=== PATIENT | male | born 1950 | race Caucasian/White ===

== ENCOUNTER 2016-09-17 08:42 | Emergency (ER) | payer MEDICARE, MEDICAID ==
--- NOTE | 2016-09-17 09:25 | EDM.PDOC ---
ED HPI GENERAL MEDICAL PROBLEM - General Chief Complaint: ENT Problem Stated Complaint: sore throat Time Seen by Provider: 09/17/16 08:45 Source of Information: Reports: Patient History Limitations: Reports: No Limitations - History of Present Illness INITIAL COMMENTS - FREE TEXT/NARRATIVE: Pt claims that he has been having sore throat for past 3 dys now. pain is in the back of the throat and hurts to swallow. even swallowing saliva hurts. no fever4 or chills. No runny nose or cough. Pt was waiting for the pain to improve. has not taken any medications. Today he has been having pain on the left side of the neck and sore throat has not improved. No nausea or vomiting. No cough, chest pain or SOB. Duration: Day(s): (3) Location: Reports: Neck, Other (sore throat) Quality: Reports: Ache Severity: Mild Improves with: Reports: None Worsens with: Reports: None Associated Symptoms: Denies: Confusion, Chest Pain, Cough, Diaphoresis, Fever/ Chills, Nausea/Vomiting, Rash, Shortness of Breath, Weakness - Related Data Allergies Allergy/AdvReac Type Severity Reaction Status Date / Time No Known Allergies Allergy Verified 12/10/15 16:57 Home Meds: Home Meds Fluticasone/Salmeterol [Advair 250-50 Diskus] 2 puff INH BID 05/03/13 [History] Furosemide [Furosemide] 20 mg PO DAILY 05/03/13 [History] Metoprolol Tartrate [Lopressor] 25 mg PO BID 05/03/13 [History] metFORMIN [metFORMIN XR] 500 mg PO BIDM 02/08/14 [History] Aspirin 325 mg PO DAILY 08/03/15 [History] Docusate Sodium [Stool Softener] 250 mg PO DAILY 08/03/15 [History] Insulin Aspart [Novolog Flexpen] 6 unit SQ TID 08/03/15 [History] Naproxen [Naprosyn] 500 mg PO Q12HR PRN 08/03/15 [History] Nitroglycerin [Nitrostat] 0.3 mg SL ASDIRECTED PRN 08/03/15 [History] Omeprazole 20 mg PO DAILY 08/03/15 [History] Rosuvastatin [Crestor] 40 mg PO BEDTIME 08/03/15 [History] levETIRAcetam [Keppra] 500 mg PO BID 08/03/15 [History] Insulin Detemir [Levemir Flextouch] 30 unit SUBCUT DAILY 12/10/15 [History] Methimazole [Methimazole] 15 mg PO DAILY 12/10/15 [History] Sertraline HCl [Sertraline HCl] 200 mg PO DAILY 09/17/16 [History] Past Medical History - Past Health History Medical/Surgical History: Denies Medical/Surgical History HEENT History: Reports: Other (See Below) Other HEENT History: [place], states occasionally has trouble swallowing Cardiovascular History: Reports: Angina, Hypertension Respiratory History: Reports: Asthma, COPD, Other (See Below) Other Respiratory History: hx of smoking and asthma Gastrointestinal History: Reports: Chronic Constipation, GERD Other Musculoskeletal History: hx of meniscal tear, plantar wart, left knee pain Neurological History: Reports: CVA, Seizure Endocrine/Metabolic History: Reports: Diabetes, Type II, Hyperthyroidism - Past Surgical History Cardiovascular Surgical History: Reports: Coronary Artery Bypass, Coronary Artery Stent Social & Family History - Family History Family Medical History: Noncontributory - Tobacco Use Smoking Status *Q: Unknown Ever Smoked Years of Tobacco use: 30 Used Tobacco, but Quit: Yes Month Tobacco Last Used: 16 years ago Second Hand Smoke Exposure: No - Alcohol Use Days Per Week of Alcohol Use: 0 - Recreational Drug Use Recreational Drug Use: No ED ROS GENERAL - Review of Systems Review Of Systems: See Below Constitutional: Denies: Fever, Chills HEENT: Reports: Throat Pain. Denies: Ear Pain, Nose Pain, Rhinitis, Sinus Problem, Throat Swelling Respiratory: Denies: Shortness of Breath, Wheezing, Cough, Sputum Cardiovascular: Denies: Chest Pain, Lightheadedness GI/Abdominal: Denies: Abdominal Pain, Nausea, Vomiting : Denies: Dysuria, Flank Pain Musculoskeletal: Reports: Neck Pain (left sided). Denies: Joint Pain, Joint Swelling ED EXAM, GENERAL - Physical Exam Exam: See Below Exam Limited By: No Limitations General Appearance: Alert, WD/WN, No Apparent Distress Eye Exam: Bilateral Eye: EOMI, PERRL Ears: Normal External Exam, Normal Canal, Hearing Grossly Normal, Normal TMs Ear Exam: Bilateral Ear: TM normal Nose: Normal Inspection, Normal Mucosa, No Blood Throat/Mouth: Normal Inspection, Normal Lips, Normal Teeth, Normal Gums, Normal Voice, No Airway Compromise, Other (mild congestion of posterior pharynx) Head: Atraumatic, Normocephalic Neck: Normal Inspection, Supple, Non-Tender (submabdibular lymphnode 2cm firm to soft and tender), Lymphadenopathy (L) Respiratory/Chest: No Respiratory Distress, Lungs Clear, Normal Breath Sounds, No Accessory Muscle Use, Chest Non-Tender Cardiovascular: Normal Peripheral Pulses, Regular Rate, Rhythm, No Edema, No Gallop, No JVD, No Murmur, No Rub Peripheral Pulses: 2+: Radial (L), Radial (R) GI/Abdominal: Normal Bowel Sounds, Soft, Non-Tender, No Organomegaly, No Distention, No Abnormal Bruit, No Mass Lymphatic: Adenopathy (left submandibular lymphnode enlarged and tender.) Course - Vital Signs Text/Narrative:: Pt has mild posterior pharyngeal congestion with left submandibular enlarged tender lymphnode. His strep test is negative. he has mild pharyngeal congestion with unilateral tender submandibular lymphadenopathy. Appear like bacterial pharyngitis. I have advised patient lysterine gargles 2-3 times daily. Warm soft diet. Tylenol 500mg 4 times daily. - Orders/Labs/Meds Orders: Active Orders 24 hr Category Date Time Status STREP SCREEN A RAPID [RM] Stat Lab 09/17/16 09:19 Ordered Departure - Departure Time of Disposition: 09:40 Disposition: Home, Self-Care 01 Condition: fair Clinical Impression: Acute bacterial pharyngitis - Discharge Information Forms: ED Department Discharge Additional Instructions: Pt has mild posterior pharyngeal congestion with left submandibular enlarged tender lymphnode. His strep test is negative. he has mild pharyngeal congestion with unilateral tender submandibular lymphadenopathy. Appear like bacterial pharyngitis. I have advised patient lysterine gargles 2-3 times daily. Warm soft diet. Tylenol 500mg 4 times daily. followup in clinic next monday if not better. - Problem List & Annotations (1) Acute bacterial pharyngitis SNOMED Code(s): 954707034 Code(s): J02.8 - ACUTE PHARYNGITIS DUE TO OTHER SPECIFIED ORGANISMS; B96.89 - OTH BACTERIAL AGENTS THE CAUSE OF DISEASES CLASSD [id number] Status: Acute Current Visit: Yes - Problem List Review Problem List Initiated/Reviewed/Updated: Yes - My Orders Last 24 Hours: My Active Orders 09/17/16 09:19 STREP SCREEN A RAPID [RM] Stat - Assessment/Plan Last 24 Hours: My Active Orders 09/17/16 09:19 STREP SCREEN A RAPID [RM] Stat Assessment:: Acute bacterial pharyngitis Plan: Pt has mild posterior pharyngeal congestion with left submandibular enlarged tender lymphnode. His strep test is negative. he has mild pharyngeal congestion with unilateral tender submandibular lymphadenopathy. Appear like bacterial pharyngitis. I have advised patient lysterine gargles 2-3 times daily. Warm soft diet. Tylenol 500mg 4 times daily.
[2016-09-17] MEDS ORDERED: Amoxicillin/Clavulanate K 875-125 MG Tab ONE (09:30)
[2016-09-17 10:02] VITALS: BP 156/74
== END 2016-09-17 09:45 | disposition home or self-care (01) ==
LOC: LB.ED 08:42
DX: J02.8 Acute pharyngitis due to other specified organisms (principal); B96.89 Other specified bacterial agents as the cause of diseases classified elsewhere; I10 Essential (primary) hypertension; J45.909 Unspecified asthma, uncomplicated; J44.9 Chronic obstructive pulmonary disease, unspecified; K59.09 Other constipation; K21.9 Gastro-esophageal reflux disease without esophagitis; E11.9 Type 2 diabetes mellitus without complications; E05.90 Thyrotoxicosis, unspecified without thyrotoxic crisis or storm; Z79.899 Other long term (current) drug therapy; Z79.84 Long term (current) use of oral hypoglycemic drugs; Z79.82 Long term (current) use of aspirin; Z79.4 Long term (current) use of insulin; Z95.5 Presence of coronary angioplasty implant and graft; Z86.73 Personal history of transient ischemic attack (TIA), and cerebral infarction without residual deficits; Z95.1 Presence of aortocoronary bypass graft
CPT/HCPCS: 87430; 99282; 99283; A9270

== ENCOUNTER 2017-04-20 13:49 | Emergency (ER) | payer MEDICARE, MEDICAID ==
[2017-04-20] MEDS ORDERED: Aspirin 81 MG Tab.Chew PO ONE (14:06)
[2017-04-20] MEDS ORDERED: Nitroglycerin 0.4 MG Tab.SL SL ONE (15:37)
[2017-04-20 15:43] VITALS: BP 145/97
--- NOTE | 2017-04-20 16:23 | EDM.PDOC ---
ED HPI GENERAL MEDICAL PROBLEM - General Chief Complaint: Chest Pain Stated Complaint: POSS [place] Time Seen by Provider: 04/20/17 14:40 Source of Information: Reports: Patient History Limitations: Reports: No Limitations - History of Present Illness INITIAL COMMENTS - FREE TEXT/NARRATIVE: This is a 67yo M here for chest pressure that radiates to the left neck and arm wit 10/10 pain. He states this pain is the same pain he had with his prior heart attack. Patient states he has increased shortness of breath on exertion today. He feels short of breath at rest as well in the ER. Patient denies any recent sickness, stress or other factors in his health. He states he had been doing well until today. Patient has a history of CABG 3 years ago and multiple stents placed last November. Onset: Today Duration: Hour(s):, Constant Location: Reports: Chest Quality: Reports: Ache Severity: Moderate Improves with: Reports: None Worsens with: Reports: None Associated Symptoms: Reports: Chest Pain, Shortness of Breath - Related Data Allergies Allergy/AdvReac Type Severity Reaction Status Date / Time No Known Allergies Allergy Verified 12/10/15 16:57 Home Meds: Home Meds Fluticasone/Salmeterol [Advair 250-50 Diskus] 2 puff INH BID 05/03/13 [History] Furosemide [Furosemide] 40 mg PO BID 05/03/13 [History] Metoprolol Tartrate [Lopressor] 25 mg PO BID 05/03/13 [History] metFORMIN [metFORMIN XR] 500 mg PO BIDM 02/08/14 [History] Aspirin 81 mg PO DAILY 08/03/15 [History] Docusate Sodium [Stool Softener] 250 mg PO DAILY 08/03/15 [History] Insulin Aspart [Novolog Flexpen] 6 unit SQ TID 08/03/15 [History] Naproxen [Naprosyn] 500 mg PO Q12HR PRN 08/03/15 [History] Nitroglycerin [Nitrostat] 0.3 mg SL ASDIRECTED PRN 08/03/15 [History] Omeprazole 20 mg PO DAILY 08/03/15 [History] Rosuvastatin [Crestor] 40 mg PO BEDTIME 08/03/15 [History] levETIRAcetam [Keppra] 500 mg PO BID 08/03/15 [History] Insulin Detemir [Levemir Flextouch] 35 unit SUBCUT DAILY 12/10/15 [History] Methimazole [Methimazole] 15 mg PO DAILY 12/10/15 [History] Sertraline HCl [Sertraline HCl] 100 mg PO BID 09/17/16 [History] Acetaminophen [Pain Reliever] 500 mg PO QID 04/20/17 [History] Clopidogrel [Plavix] 75 mg PO DAILY 04/20/17 [History] Insulin Aspart [NovoLOG] 6 units SQ TIDAC 04/20/17 [History] Isosorbide Mononitrate [Imdur] 30 mg PO DAILY 04/20/17 [History] Past Medical History - Past Health History Medical/Surgical History: Denies Medical/Surgical History HEENT History: Reports: Other (See Below) Other HEENT History: [place], states occasionally has trouble swallowing Cardiovascular History: Reports: Angina, Hypertension, [place], Stents Respiratory History: Reports: Asthma, Other (See Below) Other Respiratory History: hx of smoking and asthma Quit smoking 20 years ago Gastrointestinal History: Reports: Chronic Constipation, GERD Other Gastrointestinal History: Last BM 04/20/2016 Other Musculoskeletal History: hx of meniscal tear, left knee pain, Hx bone too long in foot and had surgery summer. Between great toe and next on left foot Neurological History: Reports: CVA, Seizure Psychiatric History: Reports: Depression Endocrine/Metabolic History: Reports: Diabetes, Type II, Hyperthyroidism Dermatologic History: Reports: Other (See Below) Other Dermatologic History: Lower legs with dark pigmented color - Infectious Disease History Infectious Disease History: Reports: Measles - Past Surgical History Head Surgeries/Procedures: Reports: None Cardiovascular Surgical History: Reports: Coronary Artery Bypass, Coronary Artery Stent Respiratory Surgical History: Reports: None Social & Family History - Family History Family Medical History: Noncontributory - Tobacco Use Smoking Status *Q: Former Smoker Years of Tobacco use: 30 Used Tobacco, but Quit: Yes Month Tobacco Last Used: may 16 Second Hand Smoke Exposure: Yes - Caffeine Use Caffeine Use: Reports: None - Alcohol Use Days Per Week of Alcohol Use: 0 - Recreational Drug Use Recreational Drug Use: No ED ROS GENERAL - Review of Systems Review Of Systems: ROS reveals no pertinent complaints other than HPI. ED EXAM, GENERAL - Physical Exam Exam: See Below Exam Limited By: No Limitations General Appearance: Alert, WD/WN, Moderate Distress Eye Exam: Bilateral Eye: EOMI, PERRL Ears: Normal External Exam Nose: Normal Inspection Throat/Mouth: Normal Inspection Head: Atraumatic, Normocephalic Neck: Normal Inspection Respiratory/Chest: No Respiratory Distress, Lungs Clear, Normal Breath Sounds, No Accessory Muscle Use Cardiovascular: Normal Peripheral Pulses, Regular Rate, Rhythm Peripheral Pulses: 2+: Carotid (L), Carotid (R), Dorsalis Pedis (L), Dorsalis Pedis (R) GI/Abdominal: Normal Bowel Sounds, Soft, Non-Tender Back Exam: Normal Inspection Extremities: Normal Inspection Neurological: Alert, Oriented, CN II-XII Intact Psychiatric: Normal Affect, Normal Mood Skin Exam: Diaphoretic Course - Vital Signs Last Recorded V/S: Last Vital Signs Temp 37.2 C 04/20/17 14:26 Pulse 66 04/20/17 14:26 Resp 12 04/20/17 14:22 BP 145/97 H 04/20/17 15:43 Pulse Ox 95 04/20/17 14:26 - Orders/Labs/Meds Orders: Active Orders 24 hr Category Date Time Status EKG Documentation Completion [RC] ASDIRECTED Care 04/20/17 14:08 Active Chest 1V Frontal [CR] Stat Exams 04/20/17 14:05 Taken Labs: Laboratory Tests 04/20/17 04/20/17 Range/Units 14:05 14:05 WBC 8.2 (4.0-11.0) K/uL RBC 5.36 (4.50-6.50) M/uL Hgb 13.7 (13.0-18.0) g/dL Hct 41.5 (40.0-54.0) % MCV 77 (76-96) fL MCH 25.6 L (27.0-32.0) pg MCHC 33.0 (31.0-35.0) g/dL RDW 16.7 H (11.0-16.0) % Plt Count 105 L D (150-400) K/uL MPV 9.0 (6.0-10.0) fL Neut % (Auto) 72.8 H (45.0-70.0) % Lymph % (Auto) 17.2 L (20.0-40.0) % [place] % (Auto) 8.5 (3.0-10.0) % Eos % (Auto) 1.1 (1.0-5.0) % Baso % (Auto) 0.4 (0.0-0.5) % Neut # (Auto) 5.95 (2.00-7.50) K/uL Lymph # (Auto) 1.40 L (1.50-4.00) K/uL [place] # (Auto) 0.69 (0.20-0.80) K/uL Eos # (Auto) 0.09 (0.04-0.40) K/uL Baso # (Auto) 0.03 (0.02-0.10) K/uL Sodium 140 (136-145) mmol/L Potassium 4.0 (3.5-5.1) mmol/L Chloride 100 (98-107) mmol/L Carbon Dioxide 31.1 (21.0-32.0) mmol/L Anion Gap 12.9 (5.0-15.0) mmol/L BUN 23 D (8-26) mg/dL Creatinine 1.24 D (0.70-1.30) mg/dL Est Cr Clr Drug Dosing TNP Estimated GFR (MDRD) 59 L (>60) MLS/MIN BUN/Creatinine Ratio 18.5 (6-25) Glucose 261 H D (74-100) mg/dL Calcium 9.6 (8.5-10.1) mg/dL Total Bilirubin 0.3 (0.0-1.0) mg/dL AST 17 (15-37) U/L ALT 23 (12-78) U/L Alkaline Phosphatase 113 (46-116) U/L Troponin I 0.242 H* D (0.000-0.060) ng/mL Total Protein 7.8 (6.4-8.2) g/dL Albumin 4.0 (3.4-5.0) g/dL Globulin 3.8 (2.2-4.2) g/dL Albumin/Globulin Ratio 1.1 (0.8-2.0) Meds: Medications Discontinued Medications Generic Name Dose Route Start Last Admin Trade Name Freq PRN Reason Stop Dose Admin Aspirin 324 mg 04/20/17 14:06 04/20/17 14:18 Aspirin PO 04/20/17 14:07 324 mg ONETIME ONE Administration Nitroglycerin 0.4 mg 04/20/17 15:37 04/20/17 15:43 Nitrostat SL 04/20/17 15:38 0.4 mg ONETIME ONE Administration Departure - Departure Time of Disposition: 16:00 Disposition: DC/Tfer to Acute Hospital 02 Reason for Transfer *Q: Primary PCI Indicated Condition: Undetermined Clinical Impression: Acute myocardial infarction Qualifiers: Myocardial infarction ST status: non-ST elevation myocardial infarction Qualified Code(s): I21.4 - Non-ST elevation (NSTEMI) myocardial infarction Referrals: PCP,None [Primary Care Provider] - - Problem List & Annotations (1) Non-STEMI (non-ST elevated myocardial infarction) SNOMED Code(s): 047553030 Code(s): I21.4 - NON-ST ELEVATION (NSTEMI) MYOCARDIAL INFARCTION Status: Acute Priority: High Current Visit: Yes Onset Date: 09/22/15 (2) Acute coronary syndrome SNOMED Code(s): 121335684 Code(s): I24.9 - ACUTE ISCHEMIC HEART DISEASE, UNSPECIFIED Status: Acute Priority: High Current Visit: Yes Onset Date: 09/22/15 - Problem List Review Problem List Initiated/Reviewed/Updated: Yes - My Orders Last 24 Hours: My Active Orders 04/20/17 14:05 Chest 1V Frontal [CR] Stat 04/20/17 14:08 EKG Documentation Completion [RC] ASDIRECTED - Assessment/Plan Last 24 Hours: My Active Orders 04/20/17 14:05 Chest 1V Frontal [CR] Stat 04/20/17 14:08 EKG Documentation Completion [RC] ASDIRECTED Plan: Patient transferred to [place] for further care and Cardiology workup as needed. Dr. Hunter accepting. Patient and counseled and agree with plan of care.
--- NOTE | 2017-04-22 13:09 | CR ---
DATE OF SERVICE: 04/20/17 CLINICAL DATA: chest pain AP PORTABLE CHEST: Comparison is made to a prior exam dated 12/01/15. The patient is status post median sternotomy. The heart is enlarged, unchanged. There are minimal atelectatic changes in both lung bases. The lungs are otherwise clear. No pneumothorax. No pleural effusions. [id number] MTDD
== END 2017-04-20 16:00 ==
LOC: LB.ED 13:49
DX: I21.4 Non-ST elevation (NSTEMI) myocardial infarction (principal); I10 Essential (primary) hypertension; J45.909 Unspecified asthma, uncomplicated; F32.9 Major depressive disorder, single episode, unspecified; E11.9 Type 2 diabetes mellitus without complications; E05.90 Thyrotoxicosis, unspecified without thyrotoxic crisis or storm; Z87.891 Personal history of nicotine dependence; Z95.1 Presence of aortocoronary bypass graft; Z95.5 Presence of coronary angioplasty implant and graft; Z79.4 Long term (current) use of insulin; Z79.82 Long term (current) use of aspirin; Z79.02 Long term (current) use of antithrombotics/antiplatelets; Z79.899 Other long term (current) drug therapy
CPT/HCPCS: 36415; 71045; 80053; 84484; 85025; 93005; 99285; 99285-25; A9270-GY

== ENCOUNTER 2017-10-29 15:24 | Emergency (ER) | payer MEDICARE, MEDICAID ==
[2017-10-29] MEDS: Ibuprofen 800 MG Tab PO ONE (16:55)
[2017-10-29] MEDS ORDERED: predniSONE 10 MG Tab ONE (17:00)
[2017-10-29] MEDS ORDERED: Cephalexin 500 MG Cap ONE (17:00)
--- NOTE | 2017-10-29 18:19 | EDM.PDOC ---
ED HPI GENERAL MEDICAL PROBLEM - General Chief Complaint: General Stated Complaint: Swelling of Both Legs Time Seen by Provider: 10/29/17 15:30 Source of Information: Reports: Patient History Limitations: Reports: No Limitations - History of Present Illness INITIAL COMMENTS - FREE TEXT/NARRATIVE: Patient is a 67 year old man who has had a sore knee and sore ankle on the left leg for the last month. In the last few weeks the left ankle and lower leg is more sore and he believes that there may be some redness in the skin. He has a lot of pain walking on the left leg the last few days and so he came in to be evaluated. No trauma to the left leg but he is scheduled for an MRI of the left knee tomorrow with follow up afterwards with his PCP and PT. He has no fever or chills and he never has had gout before. Onset: Gradual Onset Date: 09/29/17 Onset Time: 07:00 Duration: Week(s): (4), Chronic, Getting Worse Location: Reports: Lower Extremity, Left Quality: Reports: Ache, Same as Previous Episode, Other (More swelling in the left leg and ankle today.) Severity: Moderate Improves with: Reports: Immobilization Worsens with: Reports: Movement Context: Reports: Other (Worsening left knee and ankle pain for the last 4 weeks.) Associated Symptoms: Reports: No Other Symptoms Treatments INFANT CAREGIVER: Reports: Acetaminophen, NSAIDS - Related Data Allergies Allergy/AdvReac Type Severity Reaction Status Date / Time No Known Allergies Allergy Verified 12/10/15 16:57 Home Meds: Home Meds Fluticasone/Salmeterol [Advair 250-50 Diskus] 2 puff INH BID 05/03/13 [History] Furosemide 40 mg PO BID 05/03/13 [History] Metoprolol Tartrate [Lopressor] 25 mg PO BID 05/03/13 [History] metFORMIN [metFORMIN XR] 500 mg PO BIDM 02/08/14 [History] Aspirin 81 mg PO DAILY 08/03/15 [History] Docusate Sodium [Stool Softener] 250 mg PO DAILY 08/03/15 [History] Insulin Aspart [Novolog Flexpen] 6 unit SQ TID 08/03/15 [History] Naproxen [Naprosyn] 500 mg PO Q12HR PRN 08/03/15 [History] Nitroglycerin [Nitrostat] 0.3 mg SL ASDIRECTED PRN 08/03/15 [History] Omeprazole 20 mg PO DAILY 08/03/15 [History] Rosuvastatin [Crestor] 40 mg PO BEDTIME 08/03/15 [History] levETIRAcetam [Keppra] 500 mg PO BID 08/03/15 [History] Insulin Detemir [Levemir Flextouch] 35 unit SUBCUT DAILY 12/10/15 [History] Methimazole 15 mg PO DAILY 12/10/15 [History] Sertraline HCl 100 mg PO BID 09/17/16 [History] Acetaminophen [Pain Reliever] 500 mg PO QID 04/20/17 [History] Clopidogrel [Plavix] 75 mg PO DAILY 04/20/17 [History] Insulin Aspart [NovoLOG] 6 units SQ TIDAC 04/20/17 [History] Isosorbide Mononitrate [Imdur] 30 mg PO DAILY 04/20/17 [History] Past Medical History - Past Health History Medical/Surgical History: Denies Medical/Surgical History HEENT History: Reports: Other (See Below) Other HEENT History: [place], states occasionally has trouble swallowing Cardiovascular History: Reports: Angina, Hypertension, [place], Stents Respiratory History: Reports: Asthma, Other (See Below) Other Respiratory History: hx of smoking and asthma Quit smoking 20 years ago Gastrointestinal History: Reports: Chronic Constipation, GERD Other Gastrointestinal History: Last BM 04/20/2016 Other Musculoskeletal History: hx of meniscal tear, left knee pain, Hx bone too long in foot and had surgery summer. Between great toe and next on left foot Neurological History: Reports: CVA, Seizure Psychiatric History: Reports: Depression Endocrine/Metabolic History: Reports: Diabetes, Type II, Hyperthyroidism Dermatologic History: Reports: Other (See Below) Other Dermatologic History: Lower legs with dark pigmented color - Infectious Disease History Infectious Disease History: Reports: Measles - Past Surgical History Head Surgeries/Procedures: Reports: None Cardiovascular Surgical History: Reports: Coronary Artery Bypass, Coronary Artery Stent Respiratory Surgical History: Reports: None Social & Family History - Family History Family Medical History: Noncontributory - Caffeine Use Caffeine Use: Reports: None ED ROS GENERAL - Review of Systems Review Of Systems: See Below Constitutional: Reports: No Symptoms HEENT: Reports: No Symptoms Respiratory: Reports: No Symptoms Cardiovascular: Reports: No Symptoms Endocrine: Reports: No Symptoms GI/Abdominal: Reports: No Symptoms : Reports: No Symptoms Musculoskeletal: Reports: Leg Pain (Left), Joint Pain (Left knee and left ankle. ) Skin: Reports: Erythema (Left lower leg.) Neurological: Reports: No Symptoms Psychiatric: Reports: No Symptoms Hematologic/Lymphatic: Reports: No Symptoms ED EXAM, GENERAL - Physical Exam Exam: See Below Exam Limited By: No Limitations General Appearance: Alert, WD/WN, No Apparent Distress Eye Exam: Bilateral Eye: EOMI, Normal Fundi, Normal Inspection, PERRL Ears: Normal External Exam, Normal Canal, Hearing Grossly Normal, Normal TMs Ear Exam: Bilateral Ear: Auricle Normal, Canal Normal, TM normal Nose: Normal Inspection, Normal Mucosa, No Blood Throat/Mouth: Normal Inspection, Normal Lips, Normal Teeth, Normal Gums, Normal Oropharynx, Normal Voice, No Airway Compromise Head: Atraumatic, Normocephalic Neck: Normal Inspection, Supple, Non-Tender, Full Range of Motion Respiratory/Chest: No Respiratory Distress, Lungs Clear, Normal Breath Sounds, No Accessory Muscle Use, Chest Non-Tender Cardiovascular: Normal Peripheral Pulses, Regular Rate, Rhythm, No Edema, No Gallop, No JVD, No Murmur, No Rub Peripheral Pulses: 3+: Posterior Tibial (L), Posterior Tibial (R), Dorsalis Pedis (L), Dorsalis Pedis (R) GI/Abdominal: Normal Bowel Sounds, Soft, Non-Tender, No Organomegaly, No Distention, No Abnormal Bruit, No Mass (Male) Exam: No Hernia, Normal Inspection, Normal Prostate, Circumcised Extremities: Leg Pain (Left leg in ankle and knee.), Limited Range of Motion ( Left knee and left ankle due to pain.), Redness (Left lower leg by ankle.) Neurological: Alert, Oriented, CN II-XII Intact, Normal Cognition, Normal Gait, Normal Reflexes, No Motor/Sensory Deficits Psychiatric: Normal Affect, Normal Mood Skin Exam: Warm, Dry, Intact, Normal Color, No Rash Course - Vital Signs Text/Narrative:: Uneventful ED course. His pain in the left leg went from an 8/10 level to a 4/ 10 level with 800 mg of ibuprofen. His D-dimer and labs were all essentially negative. He will be put on Cephalexin 500 mg po bid x 10 days, #20, Prednisone 30 mg po daily x 5 days, ibuprofen 800 mg po q 8 hours, ice, elevate and jimmie wrap left ankle and left knee. Recheck with PCP later this week after MRI. Come in to ED if worsening before that appointment. - Orders/Labs/Meds Orders: Active Orders 24 hr Category Date Time Status Ankle 2V Lt [CR] Stat Exams 10/29/17 15:27 Taken URIC ACID [CHEM] Stat Lab 10/29/17 15:35 Ordered Labs: Laboratory Tests 10/29/17 10/29/17 10/29/17 Range/Units 15:35 15:35 15:35 WBC 6.3 D (4.0-11.0) K/uL RBC 5.22 (4.50-6.50) M/uL Hgb 13.7 (13.0-18.0) g/dL Hct 40.1 (40.0-54.0) % MCV 77 (76-96) fL MCH 26.2 L (27.0-32.0) pg MCHC 34.2 (31.0-35.0) g/dL RDW 18.5 H (11.0-16.0) % Plt Count 111 L (150-400) K/uL MPV 8.5 (6.0-10.0) fL Neut % (Auto) 63.1 (45.0-70.0) % Lymph % (Auto) 26.4 (20.0-40.0) % [place] % (Auto) 9.4 (3.0-10.0) % Eos % (Auto) 0.8 L (1.0-5.0) % Baso % (Auto) 0.3 (0.0-0.5) % Neut # (Auto) 3.94 (2.00-7.50) K/uL Lymph # (Auto) 1.65 (1.50-4.00) K/uL [place] # (Auto) 0.59 (0.20-0.80) K/uL Eos # (Auto) 0.05 (0.04-0.40) K/uL Baso # (Auto) 0.02 (0.02-0.10) K/uL D-Dimer, Quantitative < 100 (0-400) ng/mL Sodium 139 (136-145) mmol/L Potassium 3.9 (3.5-5.1) mmol/L Chloride 102 (98-107) mmol/L Carbon Dioxide 29.4 (21.0-32.0) mmol/L Anion Gap 11.5 (5.0-15.0) mmol/L BUN 18 D (8-26) mg/dL Creatinine 0.93 D (0.70-1.30) mg/dL Est Cr Clr Drug Dosing TNP Estimated GFR (MDRD) > 60 (>60) MLS/MIN BUN/Creatinine Ratio 19.4 (6-25) Glucose 209 H (74-100) mg/dL Uric Acid (2.6-7.2) mg/dL Calcium 8.7 (8.5-10.1) mg/dL Total Bilirubin 0.4 D (0.0-1.0) mg/dL AST 15 (15-37) U/L ALT 26 (12-78) U/L Alkaline Phosphatase 94 (46-116) U/L Total Protein 7.3 (6.4-8.2) g/dL Albumin 3.8 (3.4-5.0) g/dL Globulin 3.5 (2.2-4.2) g/dL Albumin/Globulin Ratio 1.1 (0.8-2.0) 07/15/18 Range/Units 15:35 WBC (4.0-11.0) K/uL RBC (4.50-6.50) M/uL Hgb (13.0-18.0) g/dL Hct (40.0-54.0) % MCV (76-96) fL MCH (27.0-32.0) pg MCHC (31.0-35.0) g/dL RDW (11.0-16.0) % Plt Count (150-400) K/uL MPV (6.0-10.0) fL Neut % (Auto) (45.0-70.0) % Lymph % (Auto) (20.0-40.0) % [place] % (Auto) (3.0-10.0) % Eos % (Auto) (1.0-5.0) % Baso % (Auto) (0.0-0.5) % Neut # (Auto) (2.00-7.50) K/uL Lymph # (Auto) (1.50-4.00) K/uL [place] # (Auto) (0.20-0.80) K/uL Eos # (Auto) (0.04-0.40) K/uL Baso # (Auto) (0.02-0.10) K/uL D-Dimer, Quantitative (0-400) ng/mL Sodium (136-145) mmol/L Potassium (3.5-5.1) mmol/L Chloride (98-107) mmol/L Carbon Dioxide (21.0-32.0) mmol/L Anion Gap (5.0-15.0) mmol/L BUN (8-26) mg/dL Creatinine (0.70-1.30) mg/dL Est Cr Clr Drug Dosing Estimated GFR (MDRD) (>60) MLS/MIN BUN/Creatinine Ratio (6-25) Glucose (74-100) mg/dL Uric Acid 4.7 (2.6-7.2) mg/dL Calcium (8.5-10.1) mg/dL Total Bilirubin (0.0-1.0) mg/dL AST (15-37) U/L ALT (12-78) U/L Alkaline Phosphatase (46-116) U/L Total Protein (6.4-8.2) g/dL Albumin (3.4-5.0) g/dL Globulin (2.2-4.2) g/dL Albumin/Globulin Ratio (0.8-2.0) Departure - Departure Time of Disposition: 18:26 Disposition: Home, Self-Care 01 Condition: Good Clinical Impression: Cellulitis of left leg Left knee pain Qualifiers: Chronicity: unspecified Qualified Code(s): M25.562 - Pain in left knee Left ankle pain Qualifiers: Chronicity: unspecified Qualified Code(s): M25.572 - Pain in left ankle and joints of left foot - Discharge Information Referrals: PCP,None [Primary Care Provider] - Forms: ED Department Discharge Additional Instructions: TAke Cephalein 500mg every 12 hours and Prednisone 30 mgs every day until gone. - My Orders Last 24 Hours: My Active Orders 10/29/17 15:27 Ankle 2V Lt [CR] Stat 10/29/17 15:35 URIC ACID [CHEM] Stat - Assessment/Plan Last 24 Hours: My Active Orders 10/29/17 15:27 Ankle 2V Lt [CR] Stat 10/29/17 15:35 URIC ACID [CHEM] Stat
[2017-10-30] MEDS: Ibuprofen 800 MG Tab PO ONE (06:53)
--- NOTE | 2017-10-30 08:14 | CR ---
DATE OF SERVICE: 10/29/17 CLINICAL DATA: Pain and swelling left ankle LEFT ANKLE: There is soft tissue swelling over the lateral and medial malleoli and throughout the distal lower leg. No acute fracture or dislocation. No lytic or blastic bone lesions. There are plantar and posterior calcaneal spurs. There are vascular calcifications in the soft tissues. [id number] [facility]
== END 2017-10-29 17:42 | disposition home or self-care (01) ==
LOC: LB.ED 15:24
DX: L03.116 Cellulitis of left lower limb (principal); M25.562 Pain in left knee; M25.572 Pain in left ankle and joints of left foot; I10 Essential (primary) hypertension; I25.2 Old myocardial infarction; E11.9 Type 2 diabetes mellitus without complications; Z79.899 Other long term (current) drug therapy; Z79.4 Long term (current) use of insulin
CPT/HCPCS: 36415; 73600; 80053; 84550; 85025; 85379; 99283; A9270

== ENCOUNTER 2017-12-09 09:48 | Emergency (ER) | payer MEDICARE, MEDICAID ==
[2017-12-09] MEDS ORDERED: Acetaminophen/Codeine 300-30 MG Tab ONE (10:15)
--- NOTE | 2017-12-09 10:28 | EDM.PDOC ---
ED HPI GENERAL MEDICAL PROBLEM - General Chief Complaint: General Stated Complaint: swollen legs Time Seen by Provider: 12/09/17 10:10 Source of Information: Reports: Patient History Limitations: Reports: No Limitations - History of Present Illness INITIAL COMMENTS - FREE TEXT/NARRATIVE: According to patient he claims that he has been having on and off pain over his left second toe for the past 1 month now, which has been getting worse. No recent trauma or injury. Also he has been having swelling of the left foot during the same time. He does have chronic lower extremity edema from his CHF for which he takes Lasix and help with swelling. No fever or chills. No redness of the left foot. No open wound or drainage. Pt did have hammer toe repair done on his left 2nd toe about [address] Hoang. Duration: Week(s): (4), Intermittent Location: Reports: Lower Extremity, Left Quality: Reports: Ache Severity: Mild Improves with: Reports: None Worsens with: Reports: Movement Associated Symptoms: Denies: Confusion, Chest Pain, Cough, Diaphoresis, Fever/ Chills, Headaches, Nausea/Vomiting, Rash, Seizure, Shortness of Breath, Syncope , Weakness - Related Data Allergies Allergy/AdvReac Type Severity Reaction Status Date / Time No Known Allergies Allergy Verified 12/10/15 16:57 Home Meds: Home Meds Fluticasone/Salmeterol [Advair 250-50 Diskus] 2 puff INH BID 05/03/13 [History] Furosemide 40 mg PO BID 05/03/13 [History] Metoprolol Tartrate [Lopressor] 25 mg PO BID 05/03/13 [History] metFORMIN [metFORMIN XR] 500 mg PO BIDM 02/08/14 [History] Aspirin 81 mg PO DAILY 08/03/15 [History] Docusate Sodium [Stool Softener] 250 mg PO DAILY 08/03/15 [History] Insulin Aspart [Novolog Flexpen] 6 unit SQ TID 08/03/15 [History] Naproxen [Naprosyn] 500 mg PO Q12HR PRN 08/03/15 [History] Nitroglycerin [Nitrostat] 0.3 mg SL ASDIRECTED PRN 08/03/15 [History] Omeprazole 20 mg PO DAILY 08/03/15 [History] Rosuvastatin [Crestor] 40 mg PO BEDTIME 08/03/15 [History] levETIRAcetam [Keppra] 500 mg PO BID 08/03/15 [History] Insulin Detemir [Levemir Flextouch] 35 unit SUBCUT DAILY 12/10/15 [History] methIMAzole [Methimazole] 15 mg PO DAILY 12/10/15 [History] Sertraline HCl 100 mg PO BID 09/17/16 [History] Acetaminophen [Pain Reliever] 500 mg PO QID 04/20/17 [History] Clopidogrel [Plavix] 75 mg PO DAILY 04/20/17 [History] Insulin Aspart [NovoLOG] 6 units SQ TIDAC 04/20/17 [History] Isosorbide Mononitrate [Imdur] 30 mg PO DAILY 04/20/17 [History] Past Medical History - Past Health History Medical/Surgical History: Denies Medical/Surgical History HEENT History: Reports: Other (See Below) Other HEENT History: [place], states occasionally has trouble swallowing Cardiovascular History: Reports: Angina, Hypertension, [place], Stents Respiratory History: Reports: Asthma, Other (See Below) Other Respiratory History: hx of smoking and asthma Quit smoking 20 years ago Gastrointestinal History: Reports: Chronic Constipation, GERD Other Gastrointestinal History: Last BM 04/20/2016 Other Musculoskeletal History: hx of meniscal tear, left knee pain, Hx bone too long in foot and had surgery summer. Between great toe and next on left foot Neurological History: Reports: CVA, Seizure Psychiatric History: Reports: Depression Endocrine/Metabolic History: Reports: Diabetes, Type II, Hyperthyroidism Dermatologic History: Reports: Other (See Below) Other Dermatologic History: Lower legs with dark pigmented color - Infectious Disease History Infectious Disease History: Reports: Measles - Past Surgical History Head Surgeries/Procedures: Reports: None Cardiovascular Surgical History: Reports: Coronary Artery Bypass, Coronary Artery Stent Respiratory Surgical History: Reports: None Social & Family History - Family History Family Medical History: Noncontributory - Caffeine Use Caffeine Use: Reports: None ED ROS GENERAL - Review of Systems Review Of Systems: See Below Constitutional: Denies: Fever, Chills HEENT: Denies: Rhinitis, Sinus Problem, Throat Pain, Throat Swelling, Vision Change Respiratory: Denies: Cough, Sputum Cardiovascular: Reports: Edema (chronic lower extremity edema). Denies: Chest Pain, Lightheadedness GI/Abdominal: Denies: Nausea, Vomiting : Denies: Dysuria, Flank Pain Musculoskeletal: Reports: Foot Pain. Denies: Joint Pain, Muscle Pain, Muscle Stiffness Skin: Denies: Pruritis, Rash, Erythema ED EXAM, GENERAL - Physical Exam Exam: See Below Exam Limited By: No Limitations General Appearance: Alert, WD/WN, No Apparent Distress Eye Exam: Bilateral Eye: EOMI, PERRL Ears: Normal External Exam, Normal Canal, Hearing Grossly Normal, Normal TMs Ear Exam: Bilateral Ear: Auricle Normal, Canal Normal, TM normal Nose: Normal Inspection, Normal Mucosa, No Blood Throat/Mouth: Normal Inspection, Normal Lips, Normal Teeth, Normal Gums, Normal Oropharynx, Normal Voice, No Airway Compromise Head: Atraumatic, Normocephalic Neck: Normal Inspection, Supple, Non-Tender, Full Range of Motion Respiratory/Chest: No Respiratory Distress, Lungs Clear, Normal Breath Sounds, No Accessory Muscle Use, Chest Non-Tender Cardiovascular: Normal Peripheral Pulses, Regular Rate, Rhythm, No Edema, No Gallop, No JVD, No Murmur, No Rub Peripheral Pulses: 2+: Carotid (L), Carotid (R), Radial (L), Radial (R), Posterior Tibial (L), Posterior Tibial (R), Dorsalis Pedis (L), Dorsalis Pedis ( R) GI/Abdominal: Normal Bowel Sounds, Soft, Non-Tender, No Organomegaly, No Distention, No Abnormal Bruit, No Mass Extremities: Normal Range of Motion, Normal Capillary Refill, Pedal Edema (both feet, pitting type, left worse then right. ), Other (left foot: there is increased pitting edema over the dorsum of the foot compared to right foot. There is well healed scar over the right second toe.No erythema seen. No open wound. Good ROM of the second toe, but pain full. Tender over the MTP joint of second toe to palpation. ) Neurological: Alert, Oriented Course - Vital Signs Text/Narrative:: Pt has b/l Lower extremity edema which is 2+ pitting type. left foot appears more swollen. Also he is tender over the second toe where he has had surgery 1 year ago. There are no signs of infection and pain is going on for 1 month now. Did get Xray of the toe to make sure he does not have a stress fracture to the toe. X-ray appear negative. The intermittent toe pain could be arthritis related. Advised intermittent warm water compresses to the toe 1-2 times.He does take Naprosyn, which i have advised to use as needed. Given Tylenol with codeine to use 3 times daily as needed. IF pain persists might need podiatry referral through [facility]. - Orders/Labs/Meds Orders: Active Orders 24 hr Category Date Time Status Toes Second Digit Lt T1 [CR] Stat Exams 12/09/17 10:20 Ordered Departure - Departure Time of Disposition: 11:15 Disposition: Home, Self-Care 01 Condition: Fair Clinical Impression: Toe pain, left - Discharge Information *PRESCRIPTION DRUG MONITORING PROGRAM REVIEWED*: Not Applicable Referrals: Jhony Vega MD [Primary Care Provider] - Forms: ED Department Discharge Additional Instructions: Advised intermittent warm water compresses to the toe 1-2 times.He does take Naprosyn, which i have advised to use as needed. Given Tylenol with codeine to use 3 times daily as needed. IF pain persists might need podiatry referral through [facility]. - Problem List & Annotations (1) Toe pain, left SNOMED Code(s): 418410378 Code(s): M79.675 - PAIN IN LEFT TOE(S) Status: Acute Current Visit: Yes - Problem List Review Problem List Initiated/Reviewed/Updated: Yes - My Orders Last 24 Hours: My Active Orders 12/09/17 10:20 Toes Second Digit Lt T1 [CR] Stat - Assessment/Plan Last 24 Hours: My Active Orders 12/09/17 10:20 Toes Second Digit Lt T1 [CR] Stat Assessment:: left second toe pain Plan: Pt has b/l Lower extremity edema which is 2+ pitting type. left foot appears more swollen. Also he is tender over the second toe where he has had surgery 1 year ago. There are no signs of infection and pain is going on for 1 month now. Did get Xray of the toe to make sure he does not have a stress fracture to the toe. X-ray appear negative. The intermittent toe pain could be arthritis related. Advised intermittent warm water compresses to the toe 1-2 times.He does take Naprosyn, which i have advised to use as needed. Given Tylenol with codeine to use 3 times daily as needed. IF pain persists might need podiatry referral through [facility].
[2017-12-09 11:25] VITALS: BP 99/67
--- NOTE | 2017-12-11 01:18 | CR ---
DATE OF SERVICE: 12/09/2017 CLINICAL DATA: Toe pain post surgery. LEFT TOES: There is diffuse osteopenia. There are osteoarthritic changes involving multiple joints. There is hammertoe deformity involving multiple toes. No acute abnormalities. [id number] [facility]
== END 2017-12-09 11:15 | disposition home or self-care (01) ==
LOC: LB.ED 09:48
DX: M79.675 Pain in left toe(s) (principal); E11.9 Type 2 diabetes mellitus without complications; I11.0 Hypertensive heart disease with heart failure; I50.9 Heart failure, unspecified; I25.2 Old myocardial infarction; Z79.4 Long term (current) use of insulin; Z79.899 Other long term (current) drug therapy; Z79.82 Long term (current) use of aspirin; Z87.891 Personal history of nicotine dependence; Z95.5 Presence of coronary angioplasty implant and graft; Z95.1 Presence of aortocoronary bypass graft
CPT/HCPCS: 73660; 99283; 99284; A9270

== ENCOUNTER 2018-01-05 10:49 | Emergency (ER) | payer MEDICARE, MEDICAID ==
--- NOTE | 2018-01-05 11:58 | EDM.PDOC ---
ED HPI GENERAL MEDICAL PROBLEM - General Stated Complaint: NECK AND ARM PAIN Time Seen by Provider: 01/05/18 11:30 Source of Information: Reports: Patient History Limitations: Reports: No Limitations - History of Present Illness INITIAL COMMENTS - FREE TEXT/NARRATIVE: According to patient he woke up today morning and was getting ready for his breakfast, when he started to feeling chest pain, which he points to the precardium and pain radiated into his left neck and shoulder. No nausea or vomiting. No sweating, shortness of breath. No other complaints. He did come into emergency room and receive Aspirin 324, chewable and the pain resolved. Presently he is chest pain free. Onset: Today Onset Date: 01/05/18 Onset Time: 08:00 Quality: Reports: Ache Severity: Mild Improves with: Reports: None Worsens with: Reports: None Associated Symptoms: Reports: Chest Pain. Denies: Confusion, Cough, Diaphoresis , Fever/Chills, Headaches, Nausea/Vomiting, Rash, Seizure, Shortness of Breath, Syncope, Weakness - Related Data Allergies Allergy/AdvReac Type Severity Reaction Status Date / Time No Known Allergies Allergy Verified 12/10/15 16:57 Home Meds: Home Meds Fluticasone/Salmeterol [Advair 250-50 Diskus] 2 puff INH BID 05/03/13 [History] Furosemide 40 mg PO BID 05/03/13 [History] Metoprolol Tartrate [Lopressor] 25 mg PO BID 05/03/13 [History] metFORMIN [metFORMIN XR] 500 mg PO BIDM 02/08/14 [History] Aspirin 81 mg PO DAILY 08/03/15 [History] Docusate Sodium [Stool Softener] 250 mg PO DAILY 08/03/15 [History] Insulin Aspart [Novolog Flexpen] 6 unit SQ TID 08/03/15 [History] Naproxen [Naprosyn] 500 mg PO Q12HR PRN 08/03/15 [History] Nitroglycerin [Nitrostat] 0.3 mg SL ASDIRECTED PRN 08/03/15 [History] Omeprazole 20 mg PO DAILY 08/03/15 [History] Rosuvastatin [Crestor] 40 mg PO BEDTIME 08/03/15 [History] levETIRAcetam [Keppra] 500 mg PO BID 08/03/15 [History] Insulin Detemir [Levemir Flextouch] 35 unit SUBCUT DAILY 12/10/15 [History] methIMAzole [Methimazole] 15 mg PO DAILY 12/10/15 [History] Sertraline HCl 100 mg PO BID 09/17/16 [History] Acetaminophen [Pain Reliever] 500 mg PO QID 04/20/17 [History] Clopidogrel [Plavix] 75 mg PO DAILY 04/20/17 [History] Insulin Aspart [NovoLOG] 6 units SQ TIDAC 04/20/17 [History] Isosorbide Mononitrate [Imdur] 30 mg PO DAILY 04/20/17 [History] Past Medical History - Past Health History Medical/Surgical History: Denies Medical/Surgical History HEENT History: Reports: Other (See Below) Other HEENT History: [place], states occasionally has trouble swallowing Cardiovascular History: Reports: Angina, Hypertension, [place], Stents Respiratory History: Reports: Asthma, Other (See Below) Other Respiratory History: hx of smoking and asthma Quit smoking 20 years ago Gastrointestinal History: Reports: Chronic Constipation, GERD Other Gastrointestinal History: Last BM 04/20/2016 Other Musculoskeletal History: hx of meniscal tear, left knee pain, Hx bone too long in foot and had surgery summer. Between great toe and next on left foot Neurological History: Reports: CVA, Seizure Psychiatric History: Reports: Depression Endocrine/Metabolic History: Reports: Diabetes, Type II, Hyperthyroidism Dermatologic History: Reports: Other (See Below) Other Dermatologic History: Lower legs with dark pigmented color - Infectious Disease History Infectious Disease History: Reports: Measles - Past Surgical History Head Surgeries/Procedures: Reports: None Cardiovascular Surgical History: Reports: Coronary Artery Bypass, Coronary Artery Stent Respiratory Surgical History: Reports: None Social & Family History - Family History Family Medical History: Noncontributory - Caffeine Use Caffeine Use: Reports: None ED ROS GENERAL - Review of Systems Review Of Systems: See Below Constitutional: Denies: Fever, Chills, Malaise, Weakness, Fatigue, Night Sweats , Diaphoresis HEENT: Denies: Contact Lenses, Rhinitis Respiratory: Denies: Shortness of Breath, Wheezing, Cough, Sputum Cardiovascular: Reports: Chest Pain. Denies: Lightheadedness GI/Abdominal: Denies: Abdominal Pain, Constipation, Nausea, Vomiting : Denies: Dysuria, Flank Pain, Frequency Musculoskeletal: Denies: Joint Pain, Joint Swelling Skin: Denies: Bruising, Pruritis, Rash ED EXAM, GENERAL - Physical Exam Exam: See Below Exam Limited By: No Limitations General Appearance: Alert, WD/WN, No Apparent Distress Eye Exam: Bilateral Eye: EOMI, PERRL Ears: Normal External Exam, Normal Canal, Hearing Grossly Normal, Normal TMs Ear Exam: Bilateral Ear: Auricle Normal, Canal Normal, TM normal Nose: Normal Inspection, Normal Mucosa, No Blood Throat/Mouth: Normal Inspection, Normal Lips, Normal Teeth, Normal Gums, Normal Oropharynx, Normal Voice, No Airway Compromise Head: Atraumatic, Normocephalic Neck: Normal Inspection, Supple, Non-Tender, Full Range of Motion Respiratory/Chest: No Respiratory Distress, Lungs Clear, Normal Breath Sounds, No Accessory Muscle Use, Chest Non-Tender Cardiovascular: Normal Peripheral Pulses, Regular Rate, Rhythm, No Edema, No Gallop, No JVD, No Murmur, No Rub GI/Abdominal: Normal Bowel Sounds, Soft, Non-Tender, No Organomegaly, No Distention, No Abnormal Bruit, No Mass EKG INTERPRETATION EKG Date: 01/05/18 Rhythm: NSR Rate (Beats/Min): 86 [place]: Normal P-Wave: Present QRS: Normal ST-T: Normal QT: Normal Comparison: No Change Course - Vital Signs Text/Narrative:: Pt's vital are stable he is chest pain free presently. His CBC and CMP appears normal. His blood sugars is 207 , but he is diabetic, recent HBAIC was stable. His initial troponin is 0.078. HE has receive 324 mg chewable aspirin. Also started on O2 by [place] at 2litres per minute. He is hemodynamically stable. Will repeat Troponin around 2 Pm and followup. Last Recorded V/S: Last Vital Signs Temp 98.2 F 01/05/18 13:40 Pulse 64 01/05/18 13:40 Resp 17 01/05/18 13:40 BP 142/65 H 01/05/18 13:40 Pulse Ox 97 01/05/18 13:40 - Orders/Labs/Meds Orders: Active Orders 24 hr Category Date Time Status Cardiac Monitoring [RC] .As Directed Care 01/05/18 11:20 Active EKG Documentation Completion [RC] ASDIRECTED Care 01/05/18 10:58 Active Oxygen Therapy Adult [Oxygen Therapy, ED] [RC] Care 01/05/18 12:02 Active ASDIRECTED Chest 1V Frontal [CR] Stat Exams 01/05/18 10:58 Taken Labs: Laboratory Tests 01/05/18 01/05/18 01/05/18 Range/Units 11:05 11:05 14:00 WBC 6.7 (4.0-11.0) K/uL RBC 5.42 (4.50-6.50) M/uL Hgb 14.4 (13.0-18.0) g/dL Hct 43.3 (40.0-54.0) % MCV 80 (76-96) fL MCH 26.6 L (27.0-32.0) pg MCHC 33.3 (31.0-35.0) g/dL RDW 17.2 H (11.0-16.0) % Plt Count 142 L D (150-400) K/uL MPV 8.6 (6.0-10.0) fL Neut % (Auto) 70.0 (45.0-70.0) % Lymph % (Auto) 18.8 L (20.0-40.0) % [place] % (Auto) 9.5 (3.0-10.0) % Eos % (Auto) 1.2 (1.0-5.0) % Baso % (Auto) 0.5 (0.0-0.5) % Neut # (Auto) 4.67 (2.00-7.50) K/uL Lymph # (Auto) 1.25 L (1.50-4.00) K/uL [place] # (Auto) 0.63 (0.20-0.80) K/uL Eos # (Auto) 0.08 (0.04-0.40) K/uL Baso # (Auto) 0.03 (0.02-0.10) K/uL Sodium 144 (136-145) mmol/L Potassium 4.4 (3.5-5.1) mmol/L Chloride 104 (98-107) mmol/L Carbon Dioxide 31.5 (21.0-32.0) mmol/L Anion Gap 12.9 (5.0-15.0) mmol/L BUN 12 (8-26) mg/dL Creatinine 0.94 (0.70-1.30) mg/dL Est Cr Clr Drug Dosing TNP Estimated GFR (MDRD) > 60 (>60) MLS/MIN BUN/Creatinine Ratio 12.8 (6-25) Glucose 207 H (74-100) mg/dL Calcium 9.0 (8.5-10.1) mg/dL Troponin I 0.078 H* D 0.574 H* D (0.000-0.060) ng/mL TSH, Ultra Sensitive 1.636 D (0.358-3.740) uIU/mL Meds: Medications Discontinued Medications Generic Name Dose Route Start Last Admin Trade Name Salty PRN Reason Stop Dose Admin Aspirin 324 mg 01/05/18 12:03 01/05/18 11:04 Aspirin PO 01/05/18 12:04 324 mg ONETIME ONE Administration - Re-Assessments/Exams Free Text/Narrative Re-Assessment/Exam: 01/05/18 14:39 Pt has no chest pain presently. His vitals are stable. His last Blood pressure was 142/65mmhg. His repeat troponin is elevated from 0.078 to 0.57. Apparently his Troponins are elevated. 01/05/18 14:41 I did call [facility] and discuss patient with , [employer] machine tender helper. He does agree with transfer. I have discussed apatient with Dr. Manzanares the hospitalist. He does agree to accept patient. Pt has remained chest pain free for now. he morales taken all his home meds for today. 01/05/18 15:16 Pt will be transferred to [facility] by [facility]. Further care as per Dr. Manzanares. Departure - Departure Time of Disposition: 16:00 Disposition: DC/Tfer to Acute Hospital 02 Condition: Fair Clinical Impression: Non-STEMI (non-ST elevated myocardial infarction) - Discharge Information Referrals: PCP,None [Primary Care Provider] - - Problem List & Annotations (1) Non-STEMI (non-ST elevated myocardial infarction) SNOMED Code(s): 287303644 Code(s): I21.4 - NON-ST ELEVATION (NSTEMI) MYOCARDIAL INFARCTION Status: Acute Priority: High Current Visit: Yes Onset Date: 09/22/15 - Problem List Review Problem List Initiated/Reviewed/Updated: Yes - My Orders Last 24 Hours: My Active Orders 01/05/18 11:20 Cardiac Monitoring [RC] .As Directed 01/05/18 12:02 Oxygen Therapy Adult [Oxygen Therapy, ED] [RC] ASDIRECTED - Assessment/Plan Last 24 Hours: My Active Orders 01/05/18 11:20 Cardiac Monitoring [RC] .As Directed 01/05/18 12:02 Oxygen Therapy Adult [Oxygen Therapy, ED] [RC] ASDIRECTED Assessment:: Non-STEMI stable vitals and presently chest pain free Plan: Pt has no chest pain presently. His vitals are stable. His last Blood pressure was 142/65mmhg. His repeat troponin is elevated from 0.078 to 0.57. Apparently his Troponins are elevated. I did call [facility] and discuss patient with , [employer] machine tender helper. He does agree with transfer. I have discussed apatient with Dr. Manzanares the hospitalist. He does agree to accept patient. Pt has remained chest pain free for now. he morales taken all his home meds for today. Pt will be transferred to [facility] by [facility] ambulance. Further care as per Dr. Manaznares.
[2018-01-05] MEDS ORDERED: Aspirin 81 MG Tab.Chew PO ONE (12:03)
--- NOTE | 2018-01-05 15:41 | CR ---
DATE OF SERVICE: 01/05/18 CLINICAL DATA: chest pain AP CHEST: Comparison is made to a prior exam dated 04/20/17. The patient is status post median sternotomy. The heart remains enlarged, unchanged. There is eventration of the right hemidiaphragm. There is a linear density in the left lung base consistent with linear atelectasis or fibrosis. The lungs are otherwise clear. No pneumothorax. No pleural effusions. [id number] [facility]
[2018-01-05 15:53] VITALS: BP 121/75
== END 2018-01-05 17:25 ==
LOC: LB.ED 10:49
DX: I21.4 Non-ST elevation (NSTEMI) myocardial infarction (principal); I10 Essential (primary) hypertension; I25.2 Old myocardial infarction; J45.909 Unspecified asthma, uncomplicated; E11.9 Type 2 diabetes mellitus without complications; E05.90 Thyrotoxicosis, unspecified without thyrotoxic crisis or storm; I25.810 Atherosclerosis of coronary artery bypass graft(s) without angina pectoris; Z95.5 Presence of coronary angioplasty implant and graft; Z79.899 Other long term (current) drug therapy; Z79.84 Long term (current) use of oral hypoglycemic drugs; Z79.4 Long term (current) use of insulin
CPT/HCPCS: 36415; 71045; 80048; 84443; 84484; 85025; 93005; 99284; A9270; 99285

== ENCOUNTER 2018-04-26 14:58 | Emergency (ER) | payer MEDICARE, MEDICAID ==
[2018-04-26] MEDS ORDERED: Heparin Sodium 5,000 Units/ML Vial IVPUSH STA (15:31)
[2018-04-26] MEDS ORDERED: Sodium Chloride 0.9% 10 ML Syringe FLUSH PRN (15:35)
--- NOTE | 2018-04-26 15:42 | EDM.PDOC ---
ED HPI GENERAL MEDICAL PROBLEM - General Stated Complaint: CARDIAC Time Seen by Provider: 04/26/18 15:00 Source of Information: Reports: Patient History Limitations: Reports: No Limitations - History of Present Illness INITIAL COMMENTS - FREE TEXT/NARRATIVE: Pt is a 68 year old male with significant PMH of CAD and IDDM. Pt presetn with c/o chest pain over the left pectoral region with neck pain, started at 6 Am today morning. 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 Pt continued to have chest pain for few hrs and resolved , but started to have mid back pain and felt weak, tired and achy. Hence he took off work at noon and went home, did not feel good and hence spouse brought him into emergency room. Presently patient is chest pain free, but has dull back pain. No fever or cough. No nausea or vomiting. No diaphoresis. No incontinence of stool or urine. No wheezing or shortness of breath. His Pulse was 68/min and his BP was 108/68mmhg. Presently asymptomatic , but not feeling well. Onset: Today, Gradual Onset Date: 04/26/18 Onset Time: 06:00 Duration: Getting Worse Location: Reports: Chest, Back Quality: Reports: Ache Severity: Mild Improves with: Reports: None Worsens with: Reports: None Associated Symptoms: Reports: Chest Pain, Malaise, Weakness. Denies: Confusion , Cough, Diaphoresis, Fever/Chills, Headaches, Loss of Appetite, Nausea/Vomiting , Rash, Seizure, Shortness of Breath, Syncope - Related Data Allergies Allergy/AdvReac Type Severity Reaction Status Date / Time No Known Allergies Allergy Verified 04/26/18 16:44 Home Meds: Home Meds Fluticasone/Salmeterol [Advair 250-50 Diskus] 2 puff INH BID 05/03/13 [History] Furosemide 40 mg PO BID 05/03/13 [History] Metoprolol Tartrate [Lopressor] 25 mg PO BID 05/03/13 [History] metFORMIN [metFORMIN XR] 500 mg PO BIDM 02/08/14 [History] Aspirin 81 mg PO DAILY 08/03/15 [History] Docusate Sodium [Stool Softener] 250 mg PO DAILY 08/03/15 [History] Insulin Aspart [Novolog Flexpen] 6 unit SQ TID 08/03/15 [History] Naproxen [Naprosyn] 500 mg PO Q12HR PRN 08/03/15 [History] Nitroglycerin [Nitrostat] 0.3 mg SL ASDIRECTED PRN 08/03/15 [History] Omeprazole 20 mg PO DAILY 08/03/15 [History] Rosuvastatin [Crestor] 40 mg PO BEDTIME 08/03/15 [History] levETIRAcetam [Keppra] 500 mg PO BID 08/03/15 [History] Insulin Detemir [Levemir Flextouch] 35 unit SUBCUT DAILY 12/10/15 [History] methIMAzole [Methimazole] 15 mg PO DAILY 12/10/15 [History] Sertraline HCl 100 mg PO BID 09/17/16 [History] Acetaminophen [Pain Reliever] 500 mg PO QID 04/20/17 [History] Clopidogrel [Plavix] 75 mg PO DAILY 04/20/17 [History] Insulin Aspart [NovoLOG] 6 units SQ TIDAC 04/20/17 [History] Isosorbide Mononitrate [Imdur] 30 mg PO DAILY 04/20/17 [History] Past Medical History - Past Health History Medical/Surgical History: Denies Medical/Surgical History HEENT History: Reports: Other (See Below) Other HEENT History: [place], states occasionally has trouble swallowing Cardiovascular History: Reports: Angina, Hypertension, CT, Stents Respiratory History: Reports: Asthma, Other (See Below) Other Respiratory History: hx of smoking and asthma Quit smoking 20 years ago Gastrointestinal History: Reports: Chronic Constipation, GERD Other Gastrointestinal History: Last BM 04/20/2016 Other Musculoskeletal History: hx of meniscal tear, left knee pain, Hx bone too long in foot and had surgery summer. Between great toe and next on left foot Neurological History: Reports: CVA, Seizure Psychiatric History: Reports: Depression Endocrine/Metabolic History: Reports: Diabetes, Type II, Hyperthyroidism Dermatologic History: Reports: Other (See Below) Other Dermatologic History: Lower legs with dark pigmented color - Infectious Disease History Infectious Disease History: Reports: Measles - Past Surgical History Head Surgeries/Procedures: Reports: None Cardiovascular Surgical History: Reports: Coronary Artery Bypass, Coronary Artery Stent Respiratory Surgical History: Reports: None Social & Family History - Family History Family Medical History: Noncontributory - Caffeine Use Caffeine Use: Reports: None ED ROS GENERAL - Review of Systems Review Of Systems: See Below Constitutional: Reports: Malaise, Weakness. Denies: Fever, Chills, Night Sweats , Diaphoresis, Decreased Appetite HEENT: Denies: Ear Pain, Rhinitis, Throat Pain, Vision Change Respiratory: Denies: Shortness of Breath, Wheezing, Cough, Sputum Cardiovascular: Reports: Chest Pain. Denies: Claudication, Dyspnea on Exertion , Edema, Lightheadedness GI/Abdominal: Denies: Abdominal Pain, Constipation, Diarrhea, Distension, Nausea , Vomiting : Denies: Dysuria, Flank Pain, Frequency Musculoskeletal: Denies: Foot Pain, Joint Pain, Joint Swelling, Muscle Pain Skin: Denies: Bruising, Pruritis, Rash, Erythema Neurological: Reports: Weakness. Denies: Confusion, Dizziness, Numbness, Syncope, Tingling, Gait Disturbance Psychiatric: Denies: Agitation, Anxiety Hematologic/Lymphatic: Denies: Anemia ED EXAM, GENERAL - Physical Exam Exam: See Below Exam Limited By: No Limitations General Appearance: Alert, WD/WN, No Apparent Distress Eye Exam: Bilateral Eye: EOMI, PERRL Ears: Normal External Exam, Normal Canal, Hearing Grossly Normal, Normal TMs Ear Exam: Bilateral Ear: Auricle Normal, Canal Normal, TM normal Nose: Normal Inspection, Normal Mucosa, No Blood Throat/Mouth: Normal Inspection, Normal Lips, Normal Teeth, Normal Gums, Normal Oropharynx, Normal Voice, No Airway Compromise Respiratory/Chest: No Respiratory Distress, Lungs Clear, Normal Breath Sounds, No Accessory Muscle Use, Chest Non-Tender Cardiovascular: Normal Peripheral Pulses, Regular Rate, Rhythm, No Edema, No Gallop, No JVD Peripheral Pulses: 2+: Carotid (L), Carotid (R), Radial (L), Radial (R), Dorsalis Pedis (L), Dorsalis Pedis (R) GI/Abdominal: Normal Bowel Sounds, Soft, Non-Tender, No Organomegaly, No Distention, No Abnormal Bruit, No Mass Rectal (Males) Exam: Normal Exam, Normal Rectal Tone, Prostate Normal Back Exam: Normal Inspection, Full Range of Motion, NT Extremities: Normal Inspection, Normal Range of Motion, Non-Tender, Normal Capillary Refill, No Pedal Edema Neurological: Alert, Oriented, CN II-XII Intact, Normal Cognition, Normal Gait, Normal Reflexes, No Motor/Sensory Deficits Psychiatric: Normal Affect, Normal Mood Skin Exam: Warm EKG INTERPRETATION EKG Date: 04/26/18 Rhythm: NSR P-Wave: Present QT: Prolonged EKG Interpretation Comments: NSR Course - Vital Signs Text/Narrative:: Pt presented to clinic with chest pain and back pain. Considering his history of chest pain since 6am today and his strong cardiac history, I did get Cardiac workup. Also did get Flu test as he has been achy and fatigued. Pt's EKG is in normal sinus rhythm. his CMP is stable. CBC is normal. His Flu test was negative. His troponin is elevated at 0.83. Pt appears to have had non STEMI. HE did receive 4 baby aspirin and also was placed on oxygen by [place] at 2 litres per minutes. He did get central line placement in his right subclavian as he was difficult IV access.Pt did receive heparin bolus 5000units followed by 1000 units per hr.His initial PTT is 28.3. I did contact fine unhairer at [facility] and discuss patient with him. Pt has been down to [place] on several occasion with CT in the past. During his recent admission on 03/20/18, angio showed complete occlusion of the left main and also LCX with stents. His recommendation was to have patient transferred to [facility] as he needs brachy-therapy of atherectomy procedure. Also it was noted that Dr. Corcoran ( 's fine unhairer) has discussed patient with Dr. Ghanshyam Chand at [facility] recently. I did contact [facility] and discuss patient condition with Dr. Barth, the emergency room physician. He did agree to accept patient. Considering the distance and acute symptoms. Pt was planned for air transfer to [place]. Pt is hemodynamically stable at the time of transfer and is chest pain free. Further care as per Dr. Barth and the cardiac team. - Orders/Labs/Meds Orders: Active Orders 24 hr Category Date Time Status Cardiac Monitoring [RC] .As Directed Care 04/26/18 15:30 Ordered Oxygen Therapy Adult [Oxygen Therapy, ED] [RC] Care 04/26/18 15:30 Ordered ASDIRECTED Chest 1V Frontal [CR] Stat Exams 04/26/18 16:29 Ordered Heparin Sodium/D5W [Heparin 25,000 Units in D5W 500 ML] Med 04/26/18 15:45 Ordered 25,000 units in 500 ml IV STAT Sodium Chloride 0.9% [Saline Flush] Med 04/26/18 15:35 Ordered 10 ml FLUSH ASDIRECTED PRN Peripheral IV Insertion Adult [OM.PC] Routine Oth 04/26/18 15:35 Ordered Medication Orders Heparin Sodium/Dextrose (Heparin 25,000 Units In D5w 500 Ml) 25,000 units in 500 mls @ 20 mls/hr IV STAT CLAUDIO; Protocol Sodium Chloride (Saline Flush) 10 ml FLUSH ASDIRECTED PRN PRN Reason: Keep Vein Open Labs: Laboratory Tests 04/26/18 Range/Units 13:40 PT 10.0 (9.0-11.5) sec INR 1.0 (1.0-3.5) APTT 28.3 (24.4-33.2) SECONDS Meds: Medications Generic Name Dose Route Start Last Admin Trade Name Freq PRN Reason Stop Dose Admin Heparin Sodium/Dextrose 25,000 units in 500 mls @ 20 mls/hr 04/26/18 15:45 Heparin 25,000 Units In D5w 500 Ml IV STAT CLAUDIO Protocol 1,000 UNITS/HR Sodium Chloride 10 ml 04/26/18 15:35 Saline Flush FLUSH ASDIRECTED PRN Keep Vein Open Discontinued Medications Generic Name Dose Route Start Last Admin Trade Name Freq PRN Reason Stop Dose Admin Aspirin 324 mg 04/26/18 15:53 Aspirin PO 04/26/18 15:54 ONETIME ONE Heparin Sodium (Porcine) 5,000 units 04/26/18 15:31 Heparin Sodium IVPUSH 04/26/18 15:32 .BOLUS STA Departure - Departure Time of Disposition: 17:00 Disposition: DC/Tfer to Acute Hospital 02 Condition: Fair Clinical Impression: Non-STEMI (non-ST elevated myocardial infarction) - Discharge Information *PRESCRIPTION DRUG MONITORING PROGRAM REVIEWED*: Not Applicable *COPY OF PRESCRIPTION DRUG MONITORING REPORT IN PATIENT MOR[place]: Not Applicable Referrals: PCP,None [Primary Care Provider] - - Problem List & Annotations (1) Non-STEMI (non-ST elevated myocardial infarction) SNOMED Code(s): 62401972 Code(s): I21.4 - NON-ST ELEVATION (NSTEMI) MYOCARDIAL INFARCTION Status: Acute Current Visit: Yes - Problem List Review Problem List Initiated/Reviewed/Updated: Yes - My Orders Last 24 Hours: My Active Orders 04/26/18 15:30 Cardiac Monitoring [RC] .As Directed Oxygen Therapy Adult [Oxygen Therapy, ED] [RC] ASDIRECTED 04/26/18 15:35 Sodium Chloride 0.9% [Saline Flush] 10 ml FLUSH ASDIRECTED PRN Peripheral IV Insertion Adult [OM.PC] Routine 04/26/18 15:45 Heparin Sodium/D5W [Heparin 25,000 Units in D5W 500 ML] 25,000 units in 500 ml IV STAT 04/26/18 16:29 Chest 1V Frontal [CR] Stat - Assessment/Plan Last 24 Hours: My Active Orders 04/26/18 15:30 Cardiac Monitoring [RC] .As Directed Oxygen Therapy Adult [Oxygen Therapy, ED] [RC] ASDIRECTED 04/26/18 15:35 Sodium Chloride 0.9% [Saline Flush] 10 ml FLUSH ASDIRECTED PRN Peripheral IV Insertion Adult [OM.PC] Routine 04/26/18 15:45 Heparin Sodium/D5W [Heparin 25,000 Units in D5W 500 ML] 25,000 units in 500 ml IV STAT 04/26/18 16:29 Chest 1V Frontal [CR] Stat Assessment:: Non-STEMI Plan: Pt presented to clinic with chest pain and back pain. Considering his history of chest pain since 6am today and his strong cardiac history, I did get Cardiac workup. Also did get Flu test as he has been achy and fatigued. Pt's EKG is in normal sinus rhythm. his CMP is stable. CBC is normal. His Flu test was negative. His troponin is elevated at 0.83. Pt appears to have had non STEMI. HE did receive 4 baby aspirin and also was placed on oxygen by [place] at 2 litres per minutes. He did get central line placement in his right subclavian as he was difficult IV access.Pt did receive heparin bolus 5000units followed by 1000 units per hr.His initial PTT is 28.3. I did contact fine unhairer at [facility] and discuss patient with him. Pt has been down to [place] on several occasion with CT in the past. During his recent admission on 03/20/18, angio showed complete occlusion of the left main and also LCX with stents. His recommendation was to have patient transferred to [facility] as he needs brachy-therapy of atherectomy procedure. Also it was noted that Dr. Corcoran ( pt's fine unhairer) has discussed patient with Dr. Ghanshyam Chand at [facility] recently. I did contact [facility] and discuss patient condition with Dr. Barth, the emergency room physician. He did agree to accept patient. Considering the distance and acute symptoms. Pt was planned for air transfer to [place]. Pt is hemodynamically stable at the time of transfer and is chest pain free. Further care as per Dr. Barth and the cardiac team.
[2018-04-26] MEDS ORDERED: Heparin Sodium/D5W 25,000 UNITS/500 ML BAG IV SCH (15:45)
[2018-04-26] MEDS ORDERED: Aspirin 81 MG Tab.Chew PO ONE (15:53)
[2018-04-26 16:47] VITALS: BP 127/55
--- NOTE | 2018-04-29 10:58 | CR ---
PORTABLE CHEST, 04/26/18 Comparison is made to a prior exam dated 01/05/18. The patient is in an apical lordotic position. The patient is status post median sternotomy. The heart is enlarged. There is a right subclavian catheter in place with its distal tip overlying the right atrium. There is eventration of the right hemidiaphragm with increased density in the right lung base consistent with basilar atelectasis. The lungs are otherwise clear. No pneumothorax. [id number] [facility]
== END 2018-04-26 16:50 ==
LOC: LB.ED 14:58
DX: I21.4 Non-ST elevation (NSTEMI) myocardial infarction (principal); I25.10 Atherosclerotic heart disease of native coronary artery without angina pectoris; J45.909 Unspecified asthma, uncomplicated; I10 Essential (primary) hypertension; E11.9 Type 2 diabetes mellitus without complications; E05.90 Thyrotoxicosis, unspecified without thyrotoxic crisis or storm; Z79.899 Other long term (current) drug therapy; Z87.891 Personal history of nicotine dependence
CPT/HCPCS: 36415; 71045; 80048; 84484; 85025; 85610; 85730; 87804; 93005; 96365; 96375; 99285; A0425; A9270; J1644

== ENCOUNTER 2018-09-24 21:06 | Emergency (ER) | payer MEDICARE, MEDICAID ==
--- NOTE | 2018-09-24 22:02 | EDM.PDOC ---
ED HPI GENERAL MEDICAL PROBLEM - General Chief Complaint: General Stated Complaint: Pain and Redness of Left Foot Time Seen by Provider: 09/24/18 21:42 Source of Information: Reports: Patient, RN History Limitations: Reports: No Limitations - History of Present Illness INITIAL COMMENTS - FREE TEXT/NARRATIVE: 68 yr male presents to ER with erythema to left foot. He states foot surgery about 1 week ago. He is rating the pain 8/10. He is taking post op pain medicine. States he noticed the redness to the foot today, with changing the dressing. He does have an immobilizer boot on. He has a follow-up appointment on 10-08-2018. Sutures are intact. Pt is diabetic. States he doesn't have help at home to change dressing daily at home. He is using some ice to area at home. Left Feet Pain Score (Numeric/FACES): 8 - Related Data Allergies Allergy/AdvReac Type Severity Reaction Status Date / Time No Known Allergies Allergy Verified 09/24/18 21:34 Home Meds: Home Meds Fluticasone/Salmeterol [Advair 250-50 Diskus] 2 puff INH BID 05/03/13 [History] Furosemide 80 mg PO DAILY 05/03/13 [History] Metoprolol Tartrate [Lopressor] 25 mg PO BID 05/03/13 [History] metFORMIN [metFORMIN XR] 500 mg PO BIDM 02/08/14 [History] Aspirin 81 mg PO DAILY 08/03/15 [History] Docusate Sodium [Stool Softener] 250 mg PO DAILY 08/03/15 [History] Insulin Aspart [Novolog Flexpen] 6 unit SQ TID 08/03/15 [History] Naproxen [Naprosyn] 500 mg PO Q12HR PRN 08/03/15 [History] Nitroglycerin [Nitrostat] 0.3 mg SL ASDIRECTED PRN 08/03/15 [History] Omeprazole 20 mg PO DAILY 08/03/15 [History] Rosuvastatin [Crestor] 40 mg PO BEDTIME 08/03/15 [History] levETIRAcetam [Keppra] 500 mg PO BID 08/03/15 [History] Insulin Detemir [Levemir Flextouch] 35 unit SUBCUT DAILY 12/10/15 [History] methIMAzole [Methimazole] 15 mg PO DAILY 12/10/15 [History] Sertraline HCl 100 mg PO BID 09/17/16 [History] Acetaminophen [Pain Reliever] 500 mg PO QID 04/20/17 [History] Clopidogrel [Plavix] 75 mg PO DAILY 04/20/17 [History] Insulin Aspart [NovoLOG] 6 units SQ TIDAC 04/20/17 [History] Isosorbide Mononitrate [Imdur] 30 mg PO DAILY 04/20/17 [History] traMADol [Ultram] 50 mg PO Q6HR PRN 08/09/18 [History] Past Medical History - Past Health History Medical/Surgical History: Denies Medical/Surgical History HEENT History: Reports: Other (See Below) Other HEENT History: [place], states occasionally has trouble swallowing Cardiovascular History: Reports: Angina, Hypertension, [place], Stents Respiratory History: Reports: Asthma, Other (See Below) Other Respiratory History: hx of smoking and asthma Quit smoking 20 years ago Gastrointestinal History: Reports: Chronic Constipation, GERD Other Gastrointestinal History: Last BM 04/20/2016 Other Musculoskeletal History: hx of meniscal tear, left knee pain, Hx bone too long in foot and had surgery summer. Between great toe and next on left foot Neurological History: Reports: CVA, Seizure Psychiatric History: Reports: Depression Endocrine/Metabolic History: Reports: Diabetes, Type II, Hyperthyroidism Dermatologic History: Reports: Other (See Below) Other Dermatologic History: Lower legs with dark pigmented color - Infectious Disease History Infectious Disease History: Reports: Measles - Past Surgical History Head Surgeries/Procedures: Reports: None Cardiovascular Surgical History: Reports: Coronary Artery Bypass, Coronary Artery Stent Respiratory Surgical History: Reports: None Social & Family History - Family History Family Medical History: Noncontributory - Caffeine Use Caffeine Use: Reports: None ED ROS GENERAL - Review of Systems Review Of Systems: See Below Constitutional: Denies: Fever, Chills HEENT: Reports: No Symptoms Respiratory: Reports: Other (some short of breath with activity) Cardiovascular: Reports: Dyspnea on Exertion, Edema (mild edema to foot), Other (has a heart monitor on and hx of [place], CAD, HTN) GI/Abdominal: Reports: No Symptoms Musculoskeletal: Reports: Foot Pain Skin: Reports: Erythema Neurological: Denies: Confusion, Dizziness, Headache ED EXAM, GENERAL - Physical Exam Exam: See Below Exam Limited By: No Limitations General Appearance: Alert, No Apparent Distress Ears: Hearing Grossly Normal Neck: Supple, Non-Tender, Full Range of Motion Respiratory/Chest: No Respiratory Distress Cardiovascular: Normal Peripheral Pulses, Regular Rate, Rhythm Extremities: Increased Warmth, Redness (to top of left foot, erythema marked with marker tonight.) Neurological: Alert, Oriented, Normal Cognition Psychiatric: Normal Affect, Normal Mood Skin Exam: Warm, Dry, Erythema, Wound/Incision (sutures intact and no drainage to sutures.) Course - Vital Signs Last Recorded V/S: Last Vital Signs Temp 97.6 F 09/24/18 21: Pulse 69 09/24/18 21:22 Resp 16 09/24/18 21: BP 137/61 09/24/18 21: Pulse Ox 97 09/24/18:22 Departure - Departure Time of Disposition: 22:40 Disposition: Home, Self-Care 01 Condition: Good Clinical Impression: Erythema, Cellulitis of foot, left - Discharge Information *PRESCRIPTION DRUG MONITORING PROGRAM REVIEWED*: Not Applicable *COPY OF PRESCRIPTION DRUG MONITORING REPORT IN PATIENT MORENO: Not Applicable Instructions: Wound Infection, [id number], Cephalexin tablets or capsules Referrals: PCP,None [Primary Care Provider] - Forms: ED Department Discharge Additional Instructions: - Take Cephalexin every 6 hours for 5 days. (10:00 pm- 4:00 am - 10:00 am - 4: 00 pm) - Take cephalexin with food to prevent stomach upset. - Continue taking pain medication as directed by tinning equipment tender. - Try to see Dr. Hoang, your tinning equipment tender tomorrow when you follow up with your heart doctor. - If seen by tinning equipment tender, you can come to the clinic for follow-up and dressing. - If not able to see Dr Hoang tomorrow, you come to the clinic on Monday for follow-up and dressing. - Put ice compress on the affected leg 3-5x daily and elevate it. - Assessment/Plan Plan: With this erythema, will start Keflex 500 mg qid PO X 5 days. Take with food or milk. Elevate foot, daily dressing change and post op care as ordered per surgeon/podiatry. Recommend follow-up with podiatry tomorrow, if possible, as pt has an appointment with cardiology at [facility], in [place], [place]. Recommend follow-up with primary care physician Idalia , or Monday this week.
[2018-09-24] MEDS ORDERED: Cephalexin 500 MG Cap ONE ×2 (22:30)
[2018-09-24 23:05] VITALS: BP 137/61
== END 2018-09-24 22:40 | disposition home or self-care (01) ==
LOC: LB.ED 21:06
DX: L03.116 Cellulitis of left lower limb (principal); I10 Essential (primary) hypertension; E11.9 Type 2 diabetes mellitus without complications; E05.90 Thyrotoxicosis, unspecified without thyrotoxic crisis or storm; F32.9 Major depressive disorder, single episode, unspecified; Z79.4 Long term (current) use of insulin; Z79.899 Other long term (current) drug therapy; Z79.82 Long term (current) use of aspirin
CPT/HCPCS: 99283; A9270-GY

== ENCOUNTER → 2019-03-05 | Outpatient (CLI) | payer MEDICARE, MEDICAID | LOC: LB.COAG 10:45 | PROVIDERS: ATTEND Nurse Practitioner Family | DX: I47.1 Supraventricular tachycardia (principal); I63.9 Cerebral infarction, unspecified | CPT/HCPCS: 85610 ==

== ENCOUNTER 2019-04-26 09:11 | Emergency (ER) | payer MEDICARE, MEDICAID ==
[2019-04-26 09:56] VITALS: BP 106/61; PULSE 66
--- NOTE | 2019-04-26 16:05 | ER ---
REASON FOR VISIT: Left shoulder pain. HISTORY OF PRESENT ILLNESS: This 69-year-old gentleman has had a history of what sounds like a rotator cuff injury in the past. He comes in now with increasing left shoulder pain. Two months ago, he while pulling vigorously on his belt, he felt a tearing sensation in his left shoulder which led to increasing pain for which he was placed on Naprosyn. He has had an MRI in the past, which demonstrated a supraspinatus and infraspinatus tears as well as some fluid along the biceps tendon. Two weeks ago, he fell and has had increased pain since then. He apparently reached a point today where he felt he should come in and have it looked at because it was not getting better. PAST MEDICAL HISTORY: Reviewed in the electronic medical record includes the following; 1. History of coronary artery disease with a non-STEMI in the past. 2. Left knee and ankle pain. 3. Type 2 diabetes. 4. History of coronary artery stent. 5. History of asthma. 6. Remote history of smoking (quit 20 years ago). 7. GERD. 8. Chronic constipation. 9. History of CVA. 10.Hyperthyroidism. MEDICATIONS: Reviewed, see EMR. They include the following; 1. Tramadol 50 mg every 6 hours p.r.n. 2. Methimazole. 3. Metformin. 4. Keppra. 5. Sertraline. 6. Crestor. 7. Omeprazole. 8. Nitroglycerin p.r.n. 9. Metoprolol. 10.Isosorbide mononitrate. 11.Insulin. 12.Furosemide. 13.Advair inhaler. 14.Plavix. 15.Aspirin. 16.Acetaminophen. REVIEW OF SYSTEMS: Pertinent positives and negatives as listed in the HPI. Additionally noted was the fact that the patient has had chronic dyspnea on exertion, which seemed to be somewhat worse last night, but he has not experienced any shortness of breath today. He has not had any cough or chest pain. PHYSICAL EXAMINATION: GENERAL: He is a pleasant man, in no acute distress. VITAL SIGNS: He is afebrile. Pulse is 66, blood pressure 106/61, respirations 16, O2 sats 100% on room air. CHEST: Clear to auscultation with good air exchange. No wheezes, rhonchi, or rales. CARDIAC: Regular rate with a possible mild murmur. No rub can be heard. EXTREMITIES: Examination of his left shoulder reveals marked decreased passive range of motion because of pain. There is some suggestion of some mild crepitus above the glenohumeral joint on passive range of motion. He has fairly exquisite tenderness along the bicipital groove anteriorly in the shoulder area. Distally, his pulses are normal and sensation is intact to crude touch. IMAGING: X-rays obtained of his left shoulder. They appear to be unchanged from before. He does not have a terrible amount of degenerative changes that I can see. No fracture or dislocation is noted. IMPRESSION: History of rotator cuff injury with bicipital tendinitis clinically. PLAN: He has had this area injected in the past and I informed him that I do not do joint injections. He was seen by an orthopedic surgeon and had this injected sometime last year, which helped for a while at least. In reviewing his records, he has taken Naprosyn in the past. I advised him to take Naprosyn 500 mg p.o. b.i.d. with meals. Additionally, we should start by applying a gel pack to the left shoulder area. This cold treatment should be done every 4 hours while awake for at least 15 or 20 minutes each time. He can try very gentle passive range of motion to try to maintain some mobility, but I think in the long run, he at least may benefit from some physical therapy. Ultimately, I think he should have orthopedic surgical evaluation and I have asked to arrange followup for him early next week in the outpatient clinic. His provider, Dr. Lynn, is no longer here, so he will have to arrange another provider. All questions were answered. They understand and agree with this plan. SALMA /[id number]
--- NOTE | 2019-04-26 18:17 | CR ---
CLINICAL DATA: Shoulder pain. LEFT SHOULDER, 26 APRIL 2019: Comparison is made to a prior exam dated December 23, 2017. There is diffuse osteopenia. There are osteoarthritic changes of the AC and glenohumeral joints. No acute abnormalities. No lytic or blastic bone lesions. Job: [id number] MTDD
== END 2019-04-26 11:20 | disposition home or self-care (01) ==
LOC: LB.ED 09:11
DX: M75.22 Bicipital tendinitis, left shoulder (principal); E11.9 Type 2 diabetes mellitus without complications; J45.909 Unspecified asthma, uncomplicated; I25.10 Atherosclerotic heart disease of native coronary artery without angina pectoris; Z87.828 Personal history of other (healed) physical injury and trauma; Z95.5 Presence of coronary angioplasty implant and graft; Z86.73 Personal history of transient ischemic attack (TIA), and cerebral infarction without residual deficits
CPT/HCPCS: 73030-LT; 99282; 99283-25

== ENCOUNTER 2019-08-25 06:51 | Emergency (ER) | payer MEDICARE, MEDICAID ==
[~2019-08-25 06:51] MED LIST: Acetaminophen/HYDROcodone 325-5 MG Tab ONE
[2019-08-25 07:11] VITALS: BP 122/71; PULSE 63
--- NOTE | 2019-08-25 09:58 | ER ---
REASON FOR EMERGENCY ROOM VISIT: Fell, right chest wall and shoulder pain. HISTORY: This 69-year-old man got up this morning and stumbled while going to the bathroom. He fell off to the right side and struck the right side of his shoulder and chest area against some boxes. He subsequently experienced significant pain which he describes as severe, primarily in his right chest with a deep breath, but to a lesser degree his right shoulder, which is very sore. He has been feeling well, otherwise. PAST MEDICAL HISTORY: 1. History of [place] and coronary artery disease. 2. History of TIA. 3. History of supraventricular tachycardia. 4. History of shoulder pain, left. 5. History of asthma. 6. History of type 2 diabetes. 7. GERD. 8. Hyperthyroidism. MEDICATIONS: 1. Tramadol 50 mg q.6 hours p.r.n. 2. Methimazole. 3. Metformin. 4. Keppra. 5. Sertraline. 6. Crestor. 7. Omeprazole. 8. Nitroglycerin p.r.n. 9. Metoprolol. 10.Isosorbide mononitrate. 11.Insulin. 12.Furosemide. 13.Advair inhaler. 14.Plavix. 15.Aspirin. For doses, please see electronic medical record. ALLERGIES: NONE TO MEDICATIONS. REVIEW OF SYSTEMS: Pertinent positives and negatives as listed in the HPI. PHYSICAL EXAMINATION: GENERAL: He is alert and in no acute distress. He is holding his shoulder close to his chest wall because of the discomfort, both in his chest as well as the back of his shoulder area. On inspection, he has a few abrasions over his mid back area just lateral to the border of the scapula over the posterior axillary line region. He also has some underlying subcutaneous induration consistent possibly with a small diffuse hematoma. There is no bony crepitus or subcutaneous air. CHEST: Clear to auscultation with good air exchange bilaterally and no wheezes, rhonchi, or rales. CARDIAC: Regular rate without murmur. Examination of his right shoulder, he has limited range of motion because of discomfort. I feel no bony crepitus. On palpation, he has a couple of areas over the posterior axillary line where it is exquisitely tender, consistent clinically with rib fracture. X-rays were reviewed of his shoulder and his chest. There is no evidence of hemopneumothorax is noted. We will await for the radiologist's reading on the shoulder films, but I see no evidence of fracture. IMPRESSION: Soft tissue injury, possibly underlying rib fracture. PLAN: I recommended ice to the affected areas for the next 24 hours or so. He can go to warm after that if that is helpful. I have advised him to avoid wrapping his chest or doing anything that will impair his breathing function. The importance of analgesia was emphasized to him and he was given a prescription for hydrocodone with acetaminophen. In addition, he was given 10 tablets of these to take home with him. He was instructed to take one every 4 hours as needed for pain. He will be kept home from work for the next couple of days at least. If his shoulder is not improving within the next 3 or 4 days, he should return for an another recheck. All questions were answered. SALMA /[id number]
--- NOTE | 2019-08-25 11:20 | CR ---
DATE OF SERVICE: 08/25/19 CLINICAL DATA: pain RIGHT SHOULDER: No priors. There is diffuse osteopenia. There are mild osteoarthritic changes of the AC and glenohumeral joints. No acute abnormalities. No focal lytic or blastic bone lesions. [id number] MTDD
--- NOTE | 2019-08-25 11:23 | CR ---
DATE OF SERVICE: 08/25/19 CLINICAL DATA: fall PA AND LATERAL CHEST: Comparison was made to a prior exam dated 05/01/19. The heart and lungs are stable. No acute fracture. No evidence of acute intrathoracic disease. [id number] [facility]
== END 2019-08-25 08:10 | disposition home or self-care (01) ==
LOC: LB.ED 06:51
DX: S20.411A Abrasion of right back wall of thorax, initial encounter (principal); I25.2 Old myocardial infarction; J45.909 Unspecified asthma, uncomplicated; E11.9 Type 2 diabetes mellitus without complications; K21.9 Gastro-esophageal reflux disease without esophagitis; I25.10 Atherosclerotic heart disease of native coronary artery without angina pectoris; Z79.4 Long term (current) use of insulin; Z86.73 Personal history of transient ischemic attack (TIA), and cerebral infarction without residual deficits; Z79.899 Other long term (current) drug therapy; Z79.82 Long term (current) use of aspirin; W19.XXXA Unspecified fall, initial encounter
CPT/HCPCS: 71046; 73030-RT; 99283-25; A9270-GY

== ENCOUNTER 2019-12-03 09:25 | Emergency (ER) | payer MEDICARE, MEDICAID ==
--- NOTE | 2019-12-03 10:48 | EDM.PDOC ---
ED HPI GENERAL MEDICAL PROBLEM - General Chief Complaint: Upper Extremity Injury/Pain Stated Complaint: ARMS HURT Time Seen by Provider: 12/03/19 10:40 Source of Information: Reports: Patient - History of Present Illness INITIAL COMMENTS - FREE TEXT/NARRATIVE: patient was cutting brush on Monday, has had a painful right shoulder since. Has been taking hydrocodone at home with some relief of the pain. Denies any SOB, CP, numbness/tingling, cough, fever, N/V/D. Onset Date: 11/30/19 Location: Reports: Upper Extremity, Right Quality: Reports: Ache Severity: Mild Improves with: Reports: Medication Worsens with: Reports: Movement Associated Symptoms: Reports: No Other Symptoms - Related Data Allergies Allergy/AdvReac Type Severity Reaction Status Date / Time No Known Allergies Allergy Verified 09/24/18 21:34 Home Meds: Home Meds Fluticasone/Salmeterol [Advair 250-50 Diskus] 2 puff INH BID 05/03/13 [History] Furosemide 80 mg PO DAILY 05/03/13 [History] Metoprolol Tartrate [Lopressor] 25 mg PO BID 05/03/13 [History] metFORMIN [metFORMIN XR] 500 mg PO BIDM 02/08/14 [History] Aspirin 81 mg PO DAILY 08/03/15 [History] Docusate Sodium [Stool Softener] 250 mg PO DAILY 08/03/15 [History] Insulin Aspart [Novolog Flexpen] 6 unit SQ TID 08/03/15 [History] Naproxen [Naprosyn] 500 mg PO Q12HR PRN 08/03/15 [History] Nitroglycerin [Nitrostat] 0.3 mg SL ASDIRECTED PRN 08/03/15 [History] Omeprazole 20 mg PO DAILY 08/03/15 [History] Rosuvastatin [Crestor] 40 mg PO BEDTIME 08/03/15 [History] levETIRAcetam [Keppra] 500 mg PO BID 08/03/15 [History] Insulin Detemir [Levemir Flextouch] 35 unit SUBCUT DAILY 12/10/15 [History] methIMAzole [Methimazole] 15 mg PO DAILY 12/10/15 [History] Sertraline HCl 100 mg PO BID 09/17/16 [History] Acetaminophen [Pain Reliever] 500 mg PO QID 04/20/17 [History] Clopidogrel [Plavix] 75 mg PO DAILY 04/20/17 [History] Isosorbide Mononitrate [Imdur] 30 mg PO DAILY 04/20/17 [History] traMADol [Ultram] 50 mg PO Q6HR PRN 08/09/18 [History] lisinopriL [Lisinopril] 5 mg PO BEDTIME 08/25/19 [History] Past Medical History - Past Health History Medical/Surgical History: Denies Medical/Surgical History HEENT History: Reports: Other (See Below) Other HEENT History: [place], states occasionally has trouble swallowing Cardiovascular History: Reports: Angina, Hypertension, [place], Stents Respiratory History: Reports: Asthma, Other (See Below) Other Respiratory History: hx of smoking and asthma Quit smoking 20 years ago Gastrointestinal History: Reports: Chronic Constipation, GERD Other Gastrointestinal History: Last BM 04/20/2016 Musculoskeletal History: Reports: Other (See Below) Other Musculoskeletal History: hx of meniscal tear, left knee pain, Hx bone too long in foot and had surgery summer. Between great toe and next on left foot, pt has left shoulder pain for the past 2 months Neurological History: Reports: CVA, Seizure Psychiatric History: Reports: Depression Endocrine/Metabolic History: Reports: Diabetes, Type II, Hyperthyroidism Dermatologic History: Reports: Other (See Below) Other Dermatologic History: Lower legs with dark pigmented color - Infectious Disease History Infectious Disease History: Reports: Measles - Past Surgical History Head Surgeries/Procedures: Reports: None Cardiovascular Surgical History: Reports: Coronary Artery Bypass, Coronary Artery Stent Respiratory Surgical History: Reports: None Social & Family History - Family History Family Medical History: Noncontributory - Caffeine Use Caffeine Use: Reports: None Review of Systems - Review of Systems Review Of Systems: See Below Constitutional: Reports: No Symptoms Mouth/Throat: Reports: No Symptoms Respiratory: Reports: No Symptoms Cardiovascular: Reports: No Symptoms Musculoskeletal: Reports: Shoulder Pain Skin: Reports: No Symptoms Neurological: Reports: No Symptoms Psychiatric: Reports: No Symptoms ED EXAM, GENERAL - Physical Exam Exam: See Below Exam Limited By: No Limitations General Appearance: Alert, No Apparent Distress Throat/Mouth: Normal Voice Head: Atraumatic Respiratory/Chest: No Respiratory Distress Cardiovascular: Normal Peripheral Pulses Peripheral Pulses: 3+: Radial (L), Radial (R) Extremities: Normal Inspection, Normal Capillary Refill, Limited Range of Motion Neurological: Alert, Oriented Psychiatric: Normal Affect, Normal Mood Skin Exam: Warm, Dry, Intact Course - Orders/Labs/Meds Orders: Active Orders 24 hr Category Date Time Status Shoulder 1V Rt [CR] Stat Exams 12/03/19 10:42 Taken Departure - Departure Time of Disposition: 11:23 Disposition: Home, Self-Care 01 Clinical Impression: Sprain of shoulder Qualifiers: Encounter type: initial encounter Shoulder sprain type: unspecified sprain Laterality: right Qualified Code(s): S43.401A - Unspecified sprain of right shoulder joint, initial encounter - Discharge Information *PRESCRIPTION DRUG MONITORING PROGRAM REVIEWED*: Not Applicable *COPY OF PRESCRIPTION DRUG MONITORING REPORT IN PATIENT MORENO: Not Applicable Instructions: Shoulder Pain, [id number] Referrals: PCP,None [Primary Care Provider] - Forms: ED Department Discharge Additional Instructions: Follow up with Dr. Oliver this week and discuss cortisone injection with him. You may take your hydrocodone as directed for pain at home. Return to Ed for any increased or new concerning symptoms. - My Orders Last 24 Hours: My Active Orders 12/03/19 10:42 Shoulder 1V Rt [CR] Stat - Assessment/Plan Last 24 Hours: My Active Orders 12/03/19 10:42 Shoulder 1V Rt [CR] Stat
[2019-12-03 13:11] VITALS: BP 133/63; PULSE 89
--- NOTE | 2019-12-03 16:42 | CR ---
Date of Service: 12/03/19 Clinical Data: pain RIGHT SHOULDER: A single view was performed. Comparison was made to a prior exam dated 08/25/19. There are osteoarthritic changes of the AC joint. No other definite abnormalities. [id number] [facility]
== END 2019-12-03 11:30 | disposition home or self-care (01) ==
LOC: LB.ED 09:25
DX: S43.401A Unspecified sprain of right shoulder joint, initial encounter (principal); I10 Essential (primary) hypertension; I25.2 Old myocardial infarction; J45.909 Unspecified asthma, uncomplicated; K21.9 Gastro-esophageal reflux disease without esophagitis; F32.9 Major depressive disorder, single episode, unspecified; E11.9 Type 2 diabetes mellitus without complications; R56.9 Unspecified convulsions; Z79.02 Long term (current) use of antithrombotics/antiplatelets; Z86.73 Personal history of transient ischemic attack (TIA), and cerebral infarction without residual deficits; Z79.4 Long term (current) use of insulin; Z79.82 Long term (current) use of aspirin; Z79.899 Other long term (current) drug therapy; X58.XXXA Exposure to other specified factors, initial encounter
CPT/HCPCS: 73020-RT; 99282; 99283

== ENCOUNTER 2020-03-25 10:52 | Emergency (ER) | payer MEDICARE, MEDICAID ==
[2020-03-25] MEDS ORDERED: Aspirin 81 MG Tab.Chew PO ONE (11:48)
[2020-03-25] MEDS ORDERED: Sodium Chloride 0.9% 500 ML IV ONE (11:50)
--- NOTE | 2020-03-25 12:10 | EDM.PDOC ---
ED HPI GENERAL MEDICAL PROBLEM - General Chief Complaint: Chest Pain Stated Complaint: TROUBLE BREATHING Time Seen by Provider: 03/25/20 11:15 Source of Information: Reports: Patient History Limitations: Reports: No Limitations - History of Present Illness INITIAL COMMENTS - FREE TEXT/NARRATIVE: Patient is a 70 y/o male who presents with left-sided chest pain that occurred prior to arrival while vacuuming. Associated shortness of breath. Chest pain was described as dull, achy, constant, and non-radiating. Symptoms resolved when patient rested and currently he is asymptomatic. PMHx significant for NSTEMI in 2016 and CABG, IDDM, and HTN. Patient states he hasn't had a stress test in "awhile." Chest Pain Score (Numeric/FACES): 5 - Related Data Allergies Allergy/AdvReac Type Severity Reaction Status Date / Time No Known Allergies Allergy Verified 03/25/20 11:18 Home Meds: Home Meds Fluticasone/Salmeterol [Advair 250-50 Diskus] 2 puff INH BID 05/03/13 [History] Furosemide 80 mg PO DAILY 05/03/13 [History] Metoprolol Tartrate [Lopressor] 25 mg PO BID 05/03/13 [History] metFORMIN [metFORMIN XR] 500 mg PO BIDM 02/08/14 [History] Docusate Sodium [Stool Softener] 250 mg PO DAILY 08/03/15 [History] Insulin Aspart [Novolog Flexpen] 12 unit SQ TID 08/03/15 [History] Nitroglycerin [Nitrostat] 0.3 mg SL ASDIRECTED PRN 08/03/15 [History] Omeprazole 20 mg PO DAILY 08/03/15 [History] Rosuvastatin [Crestor] 40 mg PO BEDTIME 08/03/15 [History] levETIRAcetam [Keppra] 500 mg PO BID 08/03/15 [History] Insulin Detemir [Levemir Flextouch] 30 unit SUBCUT BID 12/10/15 [History] methIMAzole [Methimazole] 15 mg PO DAILY 12/10/15 [History] Acetaminophen [Pain Reliever] 500 mg PO QID 04/20/17 [History] Clopidogrel [Plavix] 75 mg PO DAILY 04/20/17 [History] Isosorbide Mononitrate [Imdur] 30 mg PO DAILY 04/20/17 [History] lisinopriL [Lisinopril] 5 mg PO BEDTIME 08/25/19 [History] Cetirizine HCl 10 mg PO DAILY 03/25/20 [History] DULoxetine [Cymbalta] 20 mg PO BID 03/25/20 [History] Gabapentin [Neurontin] 600 mg PO DAILY 03/25/20 [History] Past Medical History - Past Health History Medical/Surgical History: Denies Medical/Surgical History HEENT History: Reports: Other (See Below) Other HEENT History: [place], states occasionally has trouble swallowing Cardiovascular History: Reports: Angina, Hypertension, [place], Stents Respiratory History: Reports: Asthma, Other (See Below) Other Respiratory History: hx of smoking and asthma Quit smoking 20 years ago Gastrointestinal History: Reports: Chronic Constipation, GERD Other Gastrointestinal History: Last BM 04/20/2016 Musculoskeletal History: Reports: Other (See Below) Other Musculoskeletal History: hx of meniscal tear, left knee pain, Hx bone too long in foot and had surgery summer. Between great toe and next on left foot, pt has left shoulder pain for the past 2 months Neurological History: Reports: CVA, Seizure Psychiatric History: Reports: Depression Endocrine/Metabolic History: Reports: Diabetes, Type II, Hyperthyroidism Dermatologic History: Reports: Other (See Below) Other Dermatologic History: Lower legs with dark pigmented color - Infectious Disease History Infectious Disease History: Reports: Measles - Past Surgical History Head Surgeries/Procedures: Reports: None Cardiovascular Surgical History: Reports: Coronary Artery Bypass, Coronary Artery Stent Respiratory Surgical History: Reports: None GI Surgical History: Reports: None Other Musculoskeletal Surgeries/Procedures:: presently has left neck pain Social & Family History - Family History Family Medical History: No Pertinent Family History - Tobacco Use Tobacco Use Status *Q: Former Tobacco User Used Tobacco, but Quit: No Month/Year Tobacco Last Used: 1997 - Caffeine Use Caffeine Use: Reports: None - Recreational Drug Use Recreational Drug Use: No ED ROS GENERAL - Review of Systems Review Of Systems: See Below Constitutional: Reports: No Symptoms HEENT: Reports: No Symptoms Respiratory: Reports: Shortness of Breath Cardiovascular: Reports: Chest Pain, Dyspnea on Exertion GI/Abdominal: Reports: No Symptoms Musculoskeletal: Reports: No Symptoms Skin: Reports: No Symptoms Neurological: Reports: No Symptoms Psychiatric: Reports: No Symptoms ED EXAM, GENERAL - Physical Exam Exam: See Below Exam Limited By: No Limitations General Appearance: Alert, No Apparent Distress Eye Exam: Bilateral Eye: PERRL Head: Atraumatic, Normocephalic Neck: Normal Inspection, Supple Respiratory/Chest: No Respiratory Distress, Lungs Clear, Normal Breath Sounds, No Accessory Muscle Use, Chest Non-Tender Cardiovascular: Normal Peripheral Pulses, Regular Rate, Rhythm, No Edema, No Murmur GI/Abdominal: Normal Bowel Sounds, Soft, Non-Tender, No Distention Neurological: Alert, Oriented, CN II-XII Intact, Normal Cognition, No Motor/Sensory Deficits Psychiatric: Normal Affect, Normal Mood Skin Exam: Warm, Dry, Intact, Normal Color, No Rash #1 Interpretation EKG Date: 03/25/20 Time: 11:10 Rhythm: Other (sinus rhythm with marked sinus arrhythmia) Rate (Beats/Min): 86 Fouke: Normal P-Wave: Present QRS: Normal ST-T: Other (ST changes in V2, but otherwise unchanged from previous EKG (01/28/20)) QT: Normal Course - Vital Signs Text/Narrative:: Patient given aspirin 324 mg chewable. Awaiting labs. Elevated troponin and repeat troponin climbing. EKG unchanged from initial one. Discussed with dr. Chow ([facility] in [facility]) and will transfer patient. Lovenox 100 mg IM ordered. Patient remains asymptomatic and understands the plan and agreeable to go. Transportation being arranged by nursing staff. Last Recorded V/S: Last Vital Signs Temp 36.7 C 03/25/20 11:10 Pulse 69 03/25/20 14:30 Resp 20 03/25/20 14:30 BP 146/63 H 03/25/20 14:30 Pulse Ox 97 03/25/20 14:30 - Orders/Labs/Meds Orders: Active Orders 24 hr Category Date Time Status Cardiac Monitoring [RC] .As Directed Care 03/25/20 11:22 Active EKG Documentation Completion [RC] ASDIRECTED Care 03/25/20 11:21 Active EKG Documentation Completion [RC] ASDIRECTED Care 03/25/20 12:36 Active EKG Documentation Completion [RC] ASDIRECTED Care 03/25/20 13:19 Active Chest 1V Frontal [CR] Stat Exams 03/25/20 11:20 Taken EKG 12 Lead [EK] Routine Ther 03/25/20 11:20 Ordered EKG 12 Lead [EK] Routine Ther 03/25/20 13:30 Stop Req EKG 12 Lead [EK] Stat Ther 03/25/20 13:19 Ordered Labs: Laboratory Tests 03/25/20 03/25/20 03/25/20 Range/Units 11:20 11:20 12:09 WBC 5.1 (4.0-11.0) K/uL RBC 4.25 L (4.50-6.50) M/uL Hgb 11.4 L (13.0-18.0) g/dL Hct 34.2 L (40.0-54.0) % MCV 81 (76-96) fL MCH 26.8 L (27.0-32.0) pg MCHC 33.3 (31.0-35.0) g/dL RDW 16.9 H (11.0-16.0) % Plt Count 165 D (150-400) K/uL MPV 8.4 (6.0-10.0) fL Neut % (Auto) 54.7 (45.0-70.0) % Lymph % (Auto) 31.7 (20.0-40.0) % Morrill % (Auto) 10.8 H (3.0-10.0) % Eos % (Auto) 2.4 (1.0-5.0) % Baso % (Auto) 0.4 (0.0-0.5) % Neut # (Auto) 2.78 (2.00-7.50) K/uL Lymph # (Auto) 1.61 (1.50-4.00) K/uL Morrill # (Auto) 0.55 (0.20-0.80) K/uL Eos # (Auto) 0.12 (0.04-0.40) K/uL Baso # (Auto) 0.02 (0.02-0.10) K/uL Sodium 139 (136-145) mmol/L Potassium 4.4 (3.5-5.1) mmol/L Chloride 100 (98-107) mmol/L Carbon Dioxide 32.8 H (21.0-32.0) mmol/L Anion Gap 10.6 (5.0-15.0) mmol/L BUN 35 H D (8-26) mg/dL Creatinine 1.70 H D (0.70-1.30) mg/dL Est Cr Clr Drug Dosing 38.88 mL/min Estimated GFR (MDRD) 40 L (>60) MLS/MIN BUN/Creatinine Ratio 20.6 (6-25) Glucose 199 H D (74-100) mg/dL Calcium 9.1 (8.5-10.1) mg/dL Total Bilirubin 0.3 (0.0-1.0) mg/dL AST 16 (15-37) U/L ALT 27 (12-78) U/L Alkaline Phosphatase 114 (46-116) U/L Troponin I 0.140 H* D (0.000-0.060) ng/mL Total Protein 7.0 (6.4-8.2) g/dL Albumin 3.6 (3.4-5.0) g/dL Globulin 3.4 (2.2-4.2) g/dL Albumin/Globulin Ratio 1.1 (0.8-2.0) SARS CoV-2 RNA Rapid MAHAD Negative 03/25/20 Range/Units 13:19 WBC (4.0-11.0) K/uL RBC (4.50-6.50) M/uL Hgb (13.0-18.0) g/dL Hct (40.0-54.0) % MCV (76-96) fL MCH (27.0-32.0) pg MCHC (31.0-35.0) g/dL RDW (11.0-16.0) % Plt Count (150-400) K/uL MPV (6.0-10.0) fL Neut % (Auto) (45.0-70.0) % Lymph % (Auto) (20.0-40.0) % Morrill % (Auto) (3.0-10.0) % Eos % (Auto) (1.0-5.0) % Baso % (Auto) (0.0-0.5) % Neut # (Auto) (2.00-7.50) K/uL Lymph # (Auto) (1.50-4.00) K/uL Morrill # (Auto) (0.20-0.80) K/uL Eos # (Auto) (0.04-0.40) K/uL Baso # (Auto) (0.02-0.10) K/uL Sodium (136-145) mmol/L Potassium (3.5-5.1) mmol/L Chloride (98-107) mmol/L Carbon Dioxide (21.0-32.0) mmol/L Anion Gap (5.0-15.0) mmol/L BUN (8-26) mg/dL Creatinine (0.70-1.30) mg/dL Est Cr Clr Drug Dosing mL/min Estimated GFR (MDRD) (>60) MLS/MIN BUN/Creatinine Ratio (6-25) Glucose (74-100) mg/dL Calcium (8.5-10.1) mg/dL Total Bilirubin (0.0-1.0) mg/dL AST (15-37) U/L ALT (12-78) U/L Alkaline Phosphatase (46-116) U/L Troponin I 0.159 H* (0.000-0.060) ng/mL Total Protein (6.4-8.2) g/dL Albumin (3.4-5.0) g/dL Globulin (2.2-4.2) g/dL Albumin/Globulin Ratio (0.8-2.0) SARS CoV-2 RNA Rapid MAHAD Meds: Medications Discontinued Medications Generic Name Dose Route Start Last Admin Trade Name Freq PRN Reason Stop Dose Admin Aspirin 324 mg 03/25/20 11:48 03/25/20 11:48 Aspirin PO 03/25/20 11:49 324 mg ONETIME ONE Administration Enoxaparin Sodium 100 mg 03/25/20 14:58 Lovenox SUBCUT 03/25/20 14:59 ONETIME ONE Sodium Chloride 500 mls @ 999 mls/hr 03/25/20 11:50 03/25/20 11:50 Normal Saline IV 03/25/20 12:20 999 mls/hr .BOLUS ONE Administration Departure - Departure Time of Disposition: 15:15 Disposition: DC/Tfer to Acute Hospital 02 Reason for Transfer *Q: Other (NSTEMI - cardio) Condition: Good Clinical Impression: NSTEMI (non-ST elevated myocardial infarction) Sepsis Event Note (ED) - Evaluation Sepsis Screening Result: No Definite Risk - Focused Exam Vital Signs: Vital Signs Temp Pulse Resp BP Pulse Ox 03/25/20 14:30 69 20 146/63 H 97 03/25/20 13:35 80 22 H 153/61 H 96 03/25/20 12:26 82 22 H 150/74 H 98 03/25/20 11:56 80 20 153/66 H 95 03/25/20 11:37 91 16 117/69 95 03/25/20 11:21 81 23 H 155/75 H 96 03/25/20 11:16 80 18 164/85 H 98 03/25/20 11:10 36.7 C 80 18 170/77 H 98 - My Orders Last 24 Hours: My Active Orders 03/25/20 11:20 Chest 1V Frontal [CR] Stat EKG 12 Lead [EK] Routine 03/25/20 11:21 EKG Documentation Completion [RC] ASDIRECTED 03/25/20 11:22 Cardiac Monitoring [RC] .As Directed 03/25/20 12:36 EKG Documentation Completion [RC] ASDIRECTED 03/25/20 13:19 EKG Documentation Completion [RC] ASDIRECTED EKG 12 Lead [EK] Stat 03/25/20 13:30 EKG 12 Lead [EK] Routine - Assessment/Plan Last 24 Hours: My Active Orders 03/25/20 11:20 Chest 1V Frontal [CR] Stat EKG 12 Lead [EK] Routine 03/25/20 11:21 EKG Documentation Completion [RC] ASDIRECTED 03/25/20 11:22 Cardiac Monitoring [RC] .As Directed 03/25/20 12:36 EKG Documentation Completion [RC] ASDIRECTED 03/25/20 13:19 EKG Documentation Completion [RC] ASDIRECTED EKG 12 Lead [EK] Stat 03/25/20 13:30 EKG 12 Lead [EK] Routine
[2020-03-25] MEDS ORDERED: Enoxaparin 100 MG/1 ML Syringe SUBCUT ONE (14:58)
[2020-03-25 15:18] VITALS: BP 135/85; PULSE 82
--- NOTE | 2020-03-26 09:06 | CR ---
Date of Service: 03/25/20 Clinical Data: Chest Pain AP CHEST: The patient has taken a poor inspiration and is in an apical lordotic position. Comparison is made to a prior exam dated 03/11/20. The patient is status post median sternotomy. The heart size is at the upper limits of normal. 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 There are mild atelectatic changes in both lung bases. Very subtle ground-glass opacity in the right perihilar region suspicious for pneumonia/pneumonitis. The exam is otherwise unchanged from the prior. No pneumothorax. No pleural effusions. [id number] [facility]
== END 2020-03-25 16:25 ==
LOC: LB.ED 10:52
DX: I21.4 Non-ST elevation (NSTEMI) myocardial infarction (principal); Z20.828 Contact with and (suspected) exposure to other viral communicable diseases; I10 Essential (primary) hypertension; E11.9 Type 2 diabetes mellitus without complications; F32.9 Major depressive disorder, single episode, unspecified; J45.909 Unspecified asthma, uncomplicated; K21.9 Gastro-esophageal reflux disease without esophagitis; Z79.4 Long term (current) use of insulin; Z79.02 Long term (current) use of antithrombotics/antiplatelets; Z79.899 Other long term (current) drug therapy; Z95.5 Presence of coronary angioplasty implant and graft; Z87.891 Personal history of nicotine dependence
CPT/HCPCS: 36415; 71045; 80053; 84484; 85025; 93005; 96372; 99285-25; A9270-GY; J1650; J7040; U0002

== ENCOUNTER 2020-05-22 11:56 | Emergency (ER) | payer MEDICARE ==
[2020-05-22 12:04] VITALS: BP 133/66; PULSE 103
[2020-05-22] MEDS ORDERED: Triamcinolone Acetonide 40 MG/ML 1 ML SDV ONE ×2 (12:31→12:35)
[2020-05-22] MEDS ORDERED: Triamcinolone Acetonide 40 MG/ML 1 ML SDV INJECT ONE (12:39)
[2020-05-22] MEDS ORDERED: Bupivacaine 0.5% 10 ML SDV INJECT ONE (12:40)
[2020-05-22] MEDS ORDERED: Lidocaine 1% 20 ML MDV INJECT ONE (12:40)
--- NOTE | 2020-05-22 14:12 | EDM.PDOC ---
ED HPI GENERAL MEDICAL PROBLEM - General Chief Complaint: Upper Extremity Injury/Pain Stated Complaint: SHOULDER PAIN LEFT Time Seen by Provider: 05/22/20 12:00 Source of Information: Reports: Patient History Limitations: Reports: No Limitations - History of Present Illness INITIAL COMMENTS - FREE TEXT/NARRATIVE: 70 year old male came to ED with pain located in left shoulder for the last one year -& pain is worse since this morning -the pain is sharp ,8/10 ,non radiating worse with movement - denies any swelling ,redness or discoloration or any h/o trauma to left shoulder -. denies any fever ,N/V ,headache ,chest pain,cough ,shortness of breath ,wheezing Onset: Today, Sudden Duration: Hour(s): (8) Location: Reports: Upper Extremity, Left Severity: Severe Improves with: Reports: None Worsens with: Reports: Movement Associated Symptoms: Reports: No Other Symptoms Left Shoulder Pain Score (Numeric/FACES): 10 - Related Data Allergies Allergy/AdvReac Type Severity Reaction Status Date / Time No Known Allergies Allergy Verified 05/22/20 12:01 Home Meds: Home Meds Fluticasone/Salmeterol [Advair 250-50 Diskus] 2 puff INH BID 05/03/13 [History] Furosemide 80 mg PO DAILY 05/03/13 [History] Metoprolol Tartrate [Lopressor] 25 mg PO BID 05/03/13 [History] metFORMIN [metFORMIN XR] 500 mg PO BIDM 02/08/14 [History] Docusate Sodium [Stool Softener] 250 mg PO DAILY 08/03/15 [History] Insulin Aspart [Novolog Flexpen] 12 unit SQ TID 08/03/15 [History] Nitroglycerin [Nitrostat] 0.3 mg SL ASDIRECTED PRN 08/03/15 [History] Omeprazole 20 mg PO DAILY 08/03/15 [History] Rosuvastatin [Crestor] 40 mg PO BEDTIME 08/03/15 [History] levETIRAcetam [Keppra] 500 mg PO BID 08/03/15 [History] Insulin Detemir [Levemir Flextouch] 30 unit SUBCUT BID 12/10/15 [History] methIMAzole [Methimazole] 15 mg PO DAILY 12/10/15 [History] Acetaminophen [Pain Reliever] 500 mg PO QID 04/20/17 [History] Clopidogrel [Plavix] 75 mg PO DAILY 04/20/17 [History] Isosorbide Mononitrate [Imdur] 30 mg PO DAILY 04/20/17 [History] lisinopriL [Lisinopril] 5 mg PO BEDTIME 08/25/19 [History] Cetirizine HCl 10 mg PO DAILY 03/25/20 [History] DULoxetine [Cymbalta] 20 mg PO BID 03/25/20 [History] Gabapentin [Neurontin] 600 mg PO DAILY 03/25/20 [History] Past Medical History - Past Health History Medical/Surgical History: Denies Medical/Surgical History HEENT History: Reports: Other (See Below) Other HEENT History: [place], states occasionally has trouble swallowing Cardiovascular History: Reports: Angina, Hypertension, [place], Stents Respiratory History: Reports: Asthma, Other (See Below) Other Respiratory History: hx of smoking and asthma Quit smoking 20 years ago Gastrointestinal History: Reports: Chronic Constipation, GERD Other Gastrointestinal History: Last BM 04/20/2016 Musculoskeletal History: Reports: Other (See Below) Other Musculoskeletal History: hx of meniscal tear, left knee pain, Hx bone too long in foot and had surgery summer. Between great toe and next on left foot, pt has left shoulder pain for the past 2 months Neurological History: Reports: CVA, Seizure Psychiatric History: Reports: Depression Endocrine/Metabolic History: Reports: Diabetes, Type II, Hyperthyroidism Dermatologic History: Reports: Other (See Below) Other Dermatologic History: Lower legs with dark pigmented color - Infectious Disease History Infectious Disease History: Reports: Measles - Past Surgical History Head Surgeries/Procedures: Reports: None Cardiovascular Surgical History: Reports: Coronary Artery Bypass, Coronary Artery Stent Respiratory Surgical History: Reports: None GI Surgical History: Reports: None Other Musculoskeletal Surgeries/Procedures:: presently has left neck pain Social & Family History - Family History Family Medical History: No Pertinent Family History - Caffeine Use Caffeine Use: Reports: None - Recreational Drug Use Recreational Drug Use: No Review of Systems - Review of Systems Review Of Systems: See Below Constitutional: Reports: No Symptoms Respiratory: Reports: No Symptoms, Shortness of Breath, Wheezing, Cough, Sputum Cardiovascular: Reports: No Symptoms, Chest Pain, Edema GI/Abdominal: Reports: No Symptoms Musculoskeletal: Reports: Shoulder Pain (pt reports left shoulder pain ) ED EXAM, GENERAL - Physical Exam Exam: See Below Exam Limited By: No Limitations General Appearance: Alert, WD/WN, No Apparent Distress Head: Atraumatic, Normocephalic Neck: Normal Inspection Respiratory/Chest: No Respiratory Distress, Lungs Clear, Normal Breath Sounds, No Accessory Muscle Use, Chest Non-Tender Cardiovascular: Regular Rate, Rhythm, No Edema, No Gallop, No JVD, No Murmur, No Rub GI/Abdominal: Normal Bowel Sounds Extremities: Other (No swelling of left shoulder ,no redness But tenderness present on the left shoulder ) Neurological: Alert, Oriented, CN II-XII Intact ED TRAUMA EXTREMITY PROCEDURES - Additional/Other Procedure(s) Other (Free Text) Procedure(s): Left shoulder interarticular injections 2ml of Kenalog(40mg/ml + 2ml of Marcaine .05% +2ml lidocaine 1% injected into l eft shoulder the patient tolerated the procedure very well . complication none Course - Vital Signs Text/Narrative:: 70 years old male c/o left shoulder pain since morning . patient had acute pain ,I took the decision for interarticular injection Kenalog + Marcaine + lidocaine 2 % patient was informed about the procedure , area was cleaned with chlorhexidine solution . 2ml of Kenalog(40mg /ml) + 2 ml of 0.5 percent Marcaine + 2ml of 2% lidocaine injected into left shoulder from previous approach - The patient tolerated the procedure very well . Complication -None dressing done Last Recorded V/S: Last Vital Signs Temp 98.2 F 05/22/20 12:01 Pulse 103 H 05/22/20 12:01 Resp 16 05/22/20 12:01 BP 133/66 05/22/20 12:01 Pulse Ox 100 05/22/20 12:01 - Orders/Labs/Meds Orders: Active Orders 24 hr Category Date Time Status Shoulder Comp Lt [CR] Stat Exams 05/22/20 12:12 Taken Meds: Medications Discontinued Medications Generic Name Dose Route Start Last Admin Trade Name Freq PRN Reason Stop Dose Admin Bupivacaine HCl 2 ml 05/22/20 12:40 05/22/20 12:43 Sensorcaine-Mpf 0.5% INJECT 05/22/20 12:41 2 ml ONETIME ONE Administration Lidocaine HCl 20 ml 05/22/20 12:40 05/22/20 12:43 Xylocaine 1% INJECT 05/22/20 12:41 2 ml ONETIME ONE Administration Triamcinolone Acetonide Confirm 05/22/20 12:31 05/22/20 12:38 Kenalog-40 Administered 05/22/20 12:32 Not Given Dose 40 mg .ROUTE .STK-MED ONE Triamcinolone Acetonide Confirm 05/22/20 12:35 05/22/20 12:38 Kenalog-40 Administered 05/22/20 12:36 Not Given Dose 40 mg .ROUTE .STK-MED ONE Triamcinolone Acetonide 80 mg 05/22/20 12:39 05/22/20 12:44 Kenalog-40 INJECT 05/22/20 12:40 80 mg ONETIME ONE Administration Departure - Departure Time of Disposition: 02:00 Disposition: Home, Self-Care 01 Condition: Good Clinical Impression: Shoulder pain - Discharge Information *PRESCRIPTION DRUG MONITORING PROGRAM REVIEWED*: No *COPY OF PRESCRIPTION DRUG MONITORING REPORT IN PATIENT MORENO: No Care Plan Goals: Take your pain medication as directed. Follow up at the clinic as needed. Sepsis Event Note (ED) - Evaluation Sepsis Screening Result: No Definite Risk - Focused Exam Vital Signs: Vital Signs Temp Pulse Resp BP Pulse Ox 05/22/20 12:01 98.2 F 103 H 16 133/66 100 - Problem List & Annotations (1) Chronic left shoulder pain SNOMED Code(s): 77616448407938126 Code(s): M25.512 - PAIN IN LEFT SHOULDER; G89.29 - OTHER CHRONIC PAIN Status: Acute Priority: Medium - My Orders Last 24 Hours: My Active Orders 05/22/20 12:12 Shoulder Comp Lt [CR] Stat - Assessment/Plan Last 24 Hours: My Active Orders 05/22/20 12:12 Shoulder Comp Lt [CR] Stat
--- NOTE | 2020-05-22 15:16 | CR ---
DATE OF SERVICE: 05/22/2020 CLINICAL DATA: Left shoulder pain. LEFT SHOULDER: Comparison is made to a prior exam dated 08/20/2019. There is diffuse osteopenia. There are mild osteoarthritic changes of the AC and glenohumeral joints. No acute fracture or dislocation. No lytic or blastic bone lesions. [id number] [facility]
== END 2020-05-22 12:53 | disposition home or self-care (01) ==
LOC: LB.ED 11:56
DX: M25.512 Pain in left shoulder (principal); I10 Essential (primary) hypertension; I25.2 Old myocardial infarction; J45.909 Unspecified asthma, uncomplicated; K21.9 Gastro-esophageal reflux disease without esophagitis; E11.9 Type 2 diabetes mellitus without complications; E05.90 Thyrotoxicosis, unspecified without thyrotoxic crisis or storm; Z87.891 Personal history of nicotine dependence; Z79.4 Long term (current) use of insulin; Z79.899 Other long term (current) drug therapy; Z79.02 Long term (current) use of antithrombotics/antiplatelets
CPT/HCPCS: 20610; 73030; 99283; J3301; J3490; 99282

== ENCOUNTER 2020-05-22 15:52 | Emergency (ER) | payer MEDICARE ==
[2020-05-22] MEDS ORDERED: Nitroglycerin 0.4 MG Tab.SL SL ONE (16:34)
[2020-05-22] MEDS ORDERED: Aspirin 81 MG Tab.Chew PO ONE (16:34)
[2020-05-22] MEDS ORDERED: Morphine 2 MG/ML SYRINGE IVPUSH ONE (16:45)
[2020-05-22] MEDS ORDERED: Morphine 2 MG/ML SYRINGE ONE (16:52)
[2020-05-22] MEDS ORDERED: Sodium Chloride 0.9% 1,000 ML IV SCH (17:15)
[2020-05-22] MEDS ORDERED: Heparin Sodium/D5W 25,000 UNITS/500 ML BAG IV SCH (18:30)
[2020-05-22] MEDS ORDERED: Heparin Sodium 5,000 UNITS/0.5 ML Syringe IVPUSH ONE (18:34)
[2020-05-22 18:47] VITALS: BP 143/51; PULSE 94
--- NOTE | 2020-05-22 19:37 | EDM.PDOC ---
ED HPI GENERAL MEDICAL PROBLEM - General Chief Complaint: Cardiovascular Problem Stated Complaint: CHEST PAIN Time Seen by Provider: 05/22/20 16:35 Source of Information: Reports: EMS History Limitations: Reports: No Limitations - History of Present Illness INITIAL COMMENTS - FREE TEXT/NARRATIVE: 70 year old male known diabetic ,CAD , hypertensive & morbidly obese pt was here at know due to left shoulder pain -he got Kenalog +Marcaine +lidocaine shot .He was fine .At 1430 PM ,he called back & reportedthat he had chest pain located retrosternal -he took 1 nitro & pain reduced . The pain was 10/10 initially & reduced to 5/10. The pain is sharp & Non -radiating .The patient is little short of breath . 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 Other Treatments MOLD MAKING SUPERVISOR: nitro at home Middle Chest Pain Score (Numeric/FACES): 5 - Related Data Allergies Allergy/AdvReac Type Severity Reaction Status Date / Time No Known Allergies Allergy Verified 05/22/20 16:31 Home Meds: Home Meds Fluticasone/Salmeterol [Advair 250-50 Diskus] 2 puff INH BID 05/03/13 [History] Furosemide 40 mg PO DAILY 05/03/13 [History] Metoprolol Tartrate [Lopressor] 25 mg PO BID 05/03/13 [History] metFORMIN [metFORMIN XR] 500 mg PO BIDM 02/08/14 [History] Docusate Sodium [Stool Softener] 250 mg PO DAILY 08/03/15 [History] Insulin Aspart [Novolog Flexpen] 12 unit SQ TID 08/03/15 [History] Nitroglycerin [Nitrostat] 0.3 mg SL ASDIRECTED PRN 08/03/15 [History] Omeprazole 20 mg PO DAILY 08/03/15 [History] Rosuvastatin [Crestor] 40 mg PO BEDTIME 08/03/15 [History] levETIRAcetam [Keppra] 500 mg PO BID 08/03/15 [History] Insulin Detemir [Levemir Flextouch] 30 unit SUBCUT BID 12/10/15 [History] methIMAzole [Methimazole] 15 mg PO DAILY 12/10/15 [History] Acetaminophen [Pain Reliever] 500 mg PO QID 04/20/17 [History] Clopidogrel [Plavix] 75 mg PO DAILY 04/20/17 [History] Isosorbide Mononitrate [Imdur] 60 mg PO DAILY 04/20/17 [History] lisinopriL [Lisinopril] 5 mg PO BEDTIME 08/25/19 [History] Cetirizine HCl 10 mg PO DAILY 03/25/20 [History] Gabapentin [Neurontin] 600 mg PO DAILY 03/25/20 [History] Nitroglycerin [Nitrostat] 0.4 mg SL 05/22/20 [History] Warfarin Sodium [Jantoven] 5 mg PO 05/22/20 [History] Past Medical History - Past Health History Medical/Surgical History: Denies Medical/Surgical History HEENT History: Reports: Other (See Below) Other HEENT History: [place] DEHE, states occasionally has trouble swallowing Cardiovascular History: Reports: Angina, Hypertension, [place], Stents Respiratory History: Reports: Asthma, Other (See Below) Other Respiratory History: hx of smoking and asthma Quit smoking 20 years ago Gastrointestinal History: Reports: Chronic Constipation, GERD Other Gastrointestinal History: Last BM 04/20/2016 Musculoskeletal History: Reports: Other (See Below) Other Musculoskeletal History: hx of meniscal tear, left knee pain, Hx bone too long in foot and had surgery summer. Between great toe and next on left foot, pt has left shoulder pain for the past 2 months Neurological History: Reports: CVA, Seizure Psychiatric History: Reports: Depression Endocrine/Metabolic History: Reports: Diabetes, Type II, Hyperthyroidism Dermatologic History: Reports: Other (See Below) Other Dermatologic History: Lower legs with dark pigmented color - Infectious Disease History Infectious Disease History: Reports: Measles - Past Surgical History Head Surgeries/Procedures: Reports: None Cardiovascular Surgical History: Reports: Coronary Artery Bypass, Coronary Artery Stent Respiratory Surgical History: Reports: None GI Surgical History: Reports: None Other Musculoskeletal Surgeries/Procedures:: presently has left neck pain Social & Family History - Family History Family Medical History: No Pertinent Family History - Caffeine Use Caffeine Use: Reports: None - Recreational Drug Use Recreational Drug Use: No ED ROS GENERAL - Review of Systems Review Of Systems: See Below Constitutional: Reports: No Symptoms Respiratory: Reports: No Symptoms, Shortness of Breath Cardiovascular: Reports: Chest Pain, Dyspnea on Exertion, Other Endocrine: Reports: High Glucose Musculoskeletal: Reports: No Symptoms ED EXAM, GENERAL - Physical Exam Exam: See Below Exam Limited By: No Limitations General Appearance: Alert, WD/WN, No Apparent Distress Head: Atraumatic, Normocephalic Neck: Normal Inspection Respiratory/Chest: No Respiratory Distress, Lungs Clear, Normal Breath Sounds, No Accessory Muscle Use, Chest Non-Tender Cardiovascular: Regular Rate, Rhythm, No Edema, No JVD, No Murmur, No Rub GI/Abdominal: Normal Bowel Sounds, Soft, Non-Tender, No Organomegaly, No Distention, No Abnormal Bruit, No Mass Course - Vital Signs Text/Narrative:: 70 year old male reported with chest pain - Vitals monitored labs ordered - EKG done & discussed EKG with [facility] consultant & they ask to fax the EKG to [facility] - 1 nitro repeated 2 mg of morphine given pain reduced to 0/10 EKG repeated & fax to [facility]. Blood sugar came back 939. Start a normal saline with insulin 2nd blood sugar reduced to 620 troponin was 1.6 & creat was 1.88 side sawyer advised aspirin 325mg .Brilinta 180mg -we do not have Brilinta in the hospital.so unable to give Brilinta. He also advised bolus of heparin & followed by heparin drip - plan was made to transfer to [facility] fax EKG to [facility]- Air ambulance activated -they called back & said that they are not able to fly due to bad weather - The decision was made for ground transfer with heparin infusion. Last Recorded V/S: Last Vital Signs Temp 98 F 05/22/20 18:21 Pulse 94 05/22/20 18:46 Resp 16 05/22/20 18:21 BP 143/51 H 05/22/20 18:46 Pulse Ox 96 05/22/20 16:46 - Orders/Labs/Meds Orders: Active Orders 24 hr Category Date Time Status EKG Documentation Completion [RC] ASDIRECTED Care 05/22/20 16:33 Active EKG Documentation Completion [RC] ASDIRECTED Care 05/22/20 17:30 Active CXR [Chest 1V Frontal] [CR] Stat Exams 05/22/20 16:51 Taken Heparin Sodium/D5W [Heparin 25,000 Units in D5W 500 ML] Med 05/22/20 18:30 Active 25,000 units in 500 ml IV TITRATE Insulin Regular, Human [NovoLIN R] 100 unit Med 05/22/20 17:15 Active Sodium Chloride 0.9% [Normal Saline] 100 ml IV TITRATE Sodium Chloride 0.9% [Normal Saline] 1,000 ml Med 05/22/20 17:15 Active IV ASDIRECTED Medication Orders Sodium Chloride (Normal Saline) 1,000 mls @ 999 mls/hr IV ASDIRECTED CLAUDIO Last Admin: 05/22/20 17:10 Dose: 999 mls/hr Documented by: SAHIL Insulin Human Regular 100 unit (/ Sodium Chloride) 100 mls @ 12.474 mls/hr IV TITRATE CLAUDIO; Protocol Last Admin: 05/22/20 17:23 Dose: 0.1 units/kg/hr, 12.474 mls/hr Documented by: SAHIL Cosigned by: CHARLY Heparin Sodium/Dextrose (Heparin 25,000 Units In D5w 500 Ml) 25,000 units in 500 mls @ 27.216 mls/hr IV TITRATE CLAUDIO; Protocol Last Admin: 05/22/20 18:54 Dose: 12 units/kg/hr, 27.216 mls/hr Documented by: SAHIL Cosigned by: CHARLY Labs: Laboratory Tests 05/22/20 05/22/20 05/22/20 Range/Units 16:33 16:33 17:04 WBC 9.7 D (4.0-11.0) K/uL RBC 4.58 (4.50-6.50) M/uL Hgb 12.1 L (13.0-18.0) g/dL Hct 37.7 L (40.0-54.0) % MCV 82 (76-96) fL MCH 26.4 L (27.0-32.0) pg MCHC 32.1 (31.0-35.0) g/dL RDW 15.9 (11.0-16.0) % Plt Count 161 (150-400) K/uL MPV 8.7 (6.0-10.0) fL Neut % (Auto) 90.8 H (45.0-70.0) % Lymph % (Auto) 5.3 L (20.0-40.0) % [place] % (Auto) 3.8 (3.0-10.0) % Eos % (Auto) 0.0 L (1.0-5.0) % Baso % (Auto) 0.1 (0.0-0.5) % Neut # (Auto) 8.80 H (2.00-7.50) K/uL Lymph # (Auto) 0.51 L (1.50-4.00) K/uL [place] # (Auto) 0.37 (0.20-0.80) K/uL Eos # (Auto) 0.00 L (0.04-0.40) K/uL Baso # (Auto) 0.01 L (0.02-0.10) K/uL PT (9.0-11.5) sec INR (1.0-3.5) APTT (24.4-33.2) SECONDS Sodium 126 L (136-145) mmol/L Potassium 5.2 H (3.5-5.1) mmol/L Chloride 91 L (98-107) mmol/L Carbon Dioxide 26.4 (21.0-32.0) mmol/L Anion Gap 13.8 (5.0-15.0) mmol/L BUN 31 H D (8-26) mg/dL Creatinine 1.88 H D (0.70-1.30) mg/dL Est Cr Clr Drug Dosing 35.16 mL/min Estimated GFR (MDRD) 36 L (>60) MLS/MIN BUN/Creatinine Ratio 16.5 (6-25) Glucose 939 H* D (74-100) mg/dL POC Glucose (74-110) mg/dL Calcium 8.7 (8.5-10.1) mg/dL Total Bilirubin 0.3 (0.0-1.0) mg/dL AST 12 L (15-37) U/L ALT 24 (12-78) U/L Alkaline Phosphatase 177 H (46-116) U/L Troponin I 1.609 H* D (0.000-0.060) ng/mL Total Protein 7.1 (6.4-8.2) g/dL Albumin 3.6 (3.4-5.0) g/dL Globulin 3.5 (2.2-4.2) g/dL Albumin/Globulin Ratio 1.0 (0.8-2.0) Urine Color Yellow Urine Appearance Clear (CLEAR) Urine pH 5.0 (5.0-8.0) Ur Specific [place] <= 1.005 (1.003-1.030) Urine Protein Negative (NEGATIVE) mg/dL Urine Glucose (UA) 500 H (NEGATIVE) mg/dL Urine Ketones Negative (NEGATIVE) mg/dL Urine Occult Blood Negative (NEGATIVE) Urine Nitrite Negative (NEGATIVE) Urine Bilirubin Negative (NEGATIVE) Urine Urobilinogen 0.2 (0.2-1.0) E.U./dL Ur Leukocyte Esterase Negative (NEGATIVE) SARS CoV-2 RNA Rapid MAHAD 05/22/20 05/22/20 05/22/20 Range/Units 17:10 17:31 18:05 WBC (4.0-11.0) K/uL RBC (4.50-6.50) M/uL Hgb (13.0-18.0) g/dL Hct (40.0-54.0) % MCV (76-96) fL MCH (27.0-32.0) pg MCHC (31.0-35.0) g/dL RDW (11.0-16.0) % Plt Count (150-400) K/uL MPV (6.0-10.0) fL Neut % (Auto) (45.0-70.0) % Lymph % (Auto) (20.0-40.0) % [place] % (Auto) (3.0-10.0) % Eos % (Auto) (1.0-5.0) % Baso % (Auto) (0.0-0.5) % Neut # (Auto) (2.00-7.50) K/uL Lymph # (Auto) (1.50-4.00) K/uL [place] # (Auto) (0.20-0.80) K/uL Eos # (Auto) (0.04-0.40) K/uL Baso # (Auto) (0.02-0.10) K/uL PT 12.1 H (9.0-11.5) sec INR 1.2 (1.0-3.5) APTT 24.7 (24.4-33.2) SECONDS Sodium (136-145) mmol/L Potassium (3.5-5.1) mmol/L Chloride (98-107) mmol/L Carbon Dioxide (21.0-32.0) mmol/L Anion Gap (5.0-15.0) mmol/L BUN (8-26) mg/dL Creatinine (0.70-1.30) mg/dL Est Cr Clr Drug Dosing mL/min Estimated GFR (MDRD) (>60) MLS/MIN BUN/Creatinine Ratio (6-25) Glucose (74-100) mg/dL POC Glucose 453 H* (74-110) mg/dL Calcium (8.5-10.1) mg/dL Total Bilirubin (0.0-1.0) mg/dL AST (15-37) U/L ALT (12-78) U/L Alkaline Phosphatase (46-116) U/L Troponin I (0.000-0.060) ng/mL Total Protein (6.4-8.2) g/dL Albumin (3.4-5.0) g/dL Globulin (2.2-4.2) g/dL Albumin/Globulin Ratio (0.8-2.0) Urine Color Urine Appearance (CLEAR) Urine pH (5.0-8.0) Ur Specific [place] (1.003-1.030) Urine Protein (NEGATIVE) mg/dL Urine Glucose (UA) (NEGATIVE) mg/dL Urine Ketones (NEGATIVE) mg/dL Urine Occult Blood (NEGATIVE) Urine Nitrite (NEGATIVE) Urine Bilirubin (NEGATIVE) Urine Urobilinogen (0.2-1.0) E.U./dL Ur Leukocyte Esterase (NEGATIVE) SARS CoV-2 RNA Rapid MAHAD Negative 05/22/20 Range/Units 18:15 WBC (4.0-11.0) K/uL RBC (4.50-6.50) M/uL Hgb (13.0-18.0) g/dL Hct (40.0-54.0) % MCV (76-96) fL MCH (27.0-32.0) pg MCHC (31.0-35.0) g/dL RDW (11.0-16.0) % Plt Count (150-400) K/uL MPV (6.0-10.0) fL Neut % (Auto) (45.0-70.0) % Lymph % (Auto) (20.0-40.0) % [place] % (Auto) (3.0-10.0) % Eos % (Auto) (1.0-5.0) % Baso % (Auto) (0.0-0.5) % Neut # (Auto) (2.00-7.50) K/uL Lymph # (Auto) (1.50-4.00) K/uL [place] # (Auto) (0.20-0.80) K/uL Eos # (Auto) (0.04-0.40) K/uL Baso # (Auto) (0.02-0.10) K/uL PT (9.0-11.5) sec INR (1.0-3.5) APTT (24.4-33.2) SECONDS Sodium (136-145) mmol/L Potassium (3.5-5.1) mmol/L Chloride (98-107) mmol/L Carbon Dioxide (21.0-32.0) mmol/L Anion Gap (5.0-15.0) mmol/L BUN (8-26) mg/dL Creatinine (0.70-1.30) mg/dL Est Cr Clr Drug Dosing mL/min Estimated GFR (MDRD) (>60) MLS/MIN BUN/Creatinine Ratio (6-25) Glucose 610 H* D (74-100) mg/dL POC Glucose (74-110) mg/dL Calcium (8.5-10.1) mg/dL Total Bilirubin (0.0-1.0) mg/dL AST (15-37) U/L ALT (12-78) U/L Alkaline Phosphatase (46-116) U/L Troponin I (0.000-0.060) ng/mL Total Protein (6.4-8.2) g/dL Albumin (3.4-5.0) g/dL Globulin (2.2-4.2) g/dL Albumin/Globulin Ratio (0.8-2.0) Urine Color Urine Appearance (CLEAR) Urine pH (5.0-8.0) Ur Specific [place] (1.003-1.030) Urine Protein (NEGATIVE) mg/dL Urine Glucose (UA) (NEGATIVE) mg/dL Urine Ketones (NEGATIVE) mg/dL Urine Occult Blood (NEGATIVE) Urine Nitrite (NEGATIVE) Urine Bilirubin (NEGATIVE) Urine Urobilinogen (0.2-1.0) E.U./dL Ur Leukocyte Esterase (NEGATIVE) SARS CoV-2 RNA Rapid MAHAD Meds: Medications Generic Name Dose Route Start Last Admin Trade Name Salty PRN Reason Stop Dose Admin Sodium Chloride 1,000 mls @ 999 mls/hr 05/22/20 17:15 05/22/20 17:10 Normal Saline IV 999 mls/hr ASDIRECTED CLAUDIO Administration Insulin Human Regular 100 unit 100 mls @ 12.474 mls/hr 05/22/20 17:15 05/22/20 17:23 / Sodium Chloride IV 0.1 units/kg/hr TITRATE CLAUDIO 12.474 mls/hr Administration Protocol 0.1 UNITS/KG/HR Heparin Sodium/Dextrose 25,000 units in 500 mls @ 27.216 mls/hr 05/22/20 18:30 05/22/20 18:54 Heparin 25,000 Units In D5w 500 Ml IV 12 units/kg/hr TITRATE CLAUDIO 27.216 mls/hr Administration Protocol 12 UNITS/KG/HR Discontinued Medications Generic Name Dose Route Start Last Admin Trade Name Salty PRN Reason Stop Dose Admin Aspirin 324 mg 05/22/20 16:34 05/22/20 16:36 Aspirin PO 05/22/20 16:35 324 mg ONETIME ONE Administration Heparin Sodium (Porcine) 5,000 units 05/22/20 18:34 05/22/20 18:52 Heparin Sodium IVPUSH 05/22/20 18:35 5,000 units ONETIME ONE Administration Morphine Sulfate Confirm 05/22/20 16:52 05/22/20 16:51 Morphine Administered 05/22/20 16:53 Not Given Dose 2 mg .ROUTE .STK-MED ONE Morphine Sulfate 2 mg 05/22/20 16:45 05/22/20 16:50 Morphine IVPUSH 05/22/20 16:46 2 mg ONETIME ONE Administration Nitroglycerin 0.4 mg 05/22/20 16:34 05/22/20 16:36 Nitrostat SL 05/22/20 16:35 0.4 mg ONETIME ONE Administration Departure - Departure Time of Disposition: 19:00 Disposition: DC/Tfer to Acute Hospital 02 Reason for Transfer *Q: Primary PCI Indicated Condition: Fair Clinical Impression: Non-STEMI (non-ST elevated myocardial infarction) Hypertensive heart disease Qualifiers: Heart failure type: combined systolic and diastolic Chest pain Qualifiers: Chest pain type: chest pain due to myocardial ischemia Instructions: Shortness of Breath, Adult, [id number], Nonspecific Chest Pain, Adult, [id number], Hypertension, Adult, [id number] Sepsis Event Note (ED) - Evaluation Sepsis Screening Result: No Definite Risk - Focused Exam Vital Signs: Vital Signs Temp Pulse Resp BP BP Pulse Ox 05/22/20 18:46 94 143/51 H 05/22/20 18:21 98 F 93 16 147/73 H 05/22/20 17:30 96 150/56 H 05/22/20 16:46 101 H 158/89 H 96 05/22/20 16:36 157/81 H 05/22/20 16:30 94 150/86 H 05/22/20 16:15 98 F 96 16 170/80 H 97 - Problem List & Annotations (1) Acute coronary syndrome SNOMED Code(s): 372012362 Code(s): I24.9 - ACUTE ISCHEMIC HEART DISEASE, UNSPECIFIED Status: Acute Priority: Medium Onset Date: ~05/22/20 Annotation/Comment:: transfer to [facility] (2) Acute coronary syndrome SNOMED Code(s): 552773762 Code(s): I24.9 - ACUTE ISCHEMIC HEART DISEASE, UNSPECIFIED Status: Acute Priority: High Onset Date: 09/22/15 - My Orders Last 24 Hours: My Active Orders 05/22/20 16:33 EKG Documentation Completion [RC] ASDIRECTED 05/22/20 16:51 CXR [Chest 1V Frontal] [CR] Stat 05/22/20 17:15 Insulin Regular, Human [NovoLIN R] 100 unit Sodium Chloride 0.9% [Normal Saline] 100 ml IV TITRATE Sodium Chloride 0.9% [Normal Saline] 1,000 ml IV ASDIRECTED 05/22/20 17:30 EKG Documentation Completion [RC] ASDIRECTED 05/22/20 18:30 Heparin Sodium/D5W [Heparin 25,000 Units in D5W 500 ML] 25,000 units in 500 ml IV TITRATE - Assessment/Plan Last 24 Hours: My Active Orders 05/22/20 16:33 EKG Documentation Completion [RC] ASDIRECTED 05/22/20 16:51 CXR [Chest 1V Frontal] [CR] Stat 05/22/20 17:15 Insulin Regular, Human [NovoLIN R] 100 unit Sodium Chloride 0.9% [Normal Saline] 100 ml IV TITRATE Sodium Chloride 0.9% [Normal Saline] 1,000 ml IV ASDIRECTED 05/22/20 17:30 EKG Documentation Completion [RC] ASDIRECTED 05/22/20 18:30 Heparin Sodium/D5W [Heparin 25,000 Units in D5W 500 ML] 25,000 units in 500 ml IV TITRATE
--- NOTE | 2020-05-23 13:26 | CR ---
DATE OF SERVICE: 05/22/2020 CLINICAL DATA: Chest pain. AP CHEST: Comparison is made to a prior exam dated 03/25/2020. The patient has taken a poor inspiration. The patient is status post median sternotomy. The heart size is stable. 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 There are mild atelectatic changes in both lung bases. The lungs otherwise clear. No pneumothorax. No pleural effusions. [id number] [facility]
== END 2020-05-22 19:30 ==
LOC: LB.ED 15:52
DX: I21.4 Non-ST elevation (NSTEMI) myocardial infarction (principal); I25.9 Chronic ischemic heart disease, unspecified; I11.0 Hypertensive heart disease with heart failure; I50.40 Unspecified combined systolic (congestive) and diastolic (congestive) heart failure; J45.909 Unspecified asthma, uncomplicated; K21.9 Gastro-esophageal reflux disease without esophagitis; E11.9 Type 2 diabetes mellitus without complications; E66.01 Morbid (severe) obesity due to excess calories; Z68.39 Body mass index [BMI] 39.0-39.9, adult; Z87.891 Personal history of nicotine dependence; Z79.4 Long term (current) use of insulin; Z79.899 Other long term (current) drug therapy; Z79.02 Long term (current) use of antithrombotics/antiplatelets; Z20.822 Contact with and (suspected) exposure to COVID-19
CPT/HCPCS: 36415; 71045; 80053; 81003; 82947; 82962; 84484; 85025; 85610; 85730; 93005; 96365; 96366; 96375; 99285; A0425; A0429; A9270; J1644; J2270; J7030; U0002

== ENCOUNTER 2020-08-28 19:12 | Emergency (ER) | payer MEDICARE ==
--- NOTE | 2020-08-28 20:06 | EDM.PDOC ---
ED HPI GENERAL MEDICAL PROBLEM - General Chief Complaint: Upper Extremity Injury/Pain Stated Complaint: shoulder pain Time Seen by Provider: 08/28/20 19:40 Source of Information: Reports: Patient History Limitations: Reports: No Limitations - History of Present Illness INITIAL COMMENTS - FREE TEXT/NARRATIVE: 70 year old morbidly obese male with extensive cardiac history(RBBB), HTN, hyperlipidemia, diabetes, bilateral chronic shoulder pain, TIA, presents to ED with left shoulder pain. He states that this is the same pain he has had for years, but it just increased today. He has tried ibuprofen at home without relief. Denies any CP, SOB, n/v/d, fever, cough. Has cortisone injections every 3 months and is due for one. 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 - Related Data Allergies Allergy/AdvReac Type Severity Reaction Status Date / Time No Known Allergies Allergy Verified 05/22/20 16:31 Home Meds: Home Meds Fluticasone/Salmeterol [Advair 250-50 Diskus] 2 puff INH BID 05/03/13 [History] Furosemide 40 mg PO DAILY 05/03/13 [History] Metoprolol Tartrate [Lopressor] 25 mg PO BID 05/03/13 [History] metFORMIN [metFORMIN XR] 500 mg PO BIDM 02/08/14 [History] Docusate Sodium [Stool Softener] 250 mg PO DAILY 08/03/15 [History] Insulin Aspart [Novolog Flexpen] 12 unit SQ TID 08/03/15 [History] Nitroglycerin [Nitrostat] 0.3 mg SL ASDIRECTED PRN 08/03/15 [History] Omeprazole 20 mg PO DAILY 08/03/15 [History] Rosuvastatin [Crestor] 40 mg PO BEDTIME 08/03/15 [History] levETIRAcetam [Keppra] 500 mg PO BID 08/03/15 [History] Insulin Detemir [Levemir Flextouch] 30 unit SUBCUT BID 12/10/15 [History] methIMAzole [Methimazole] 15 mg PO DAILY 12/10/15 [History] Acetaminophen [Pain Reliever] 500 mg PO QID 04/20/17 [History] Clopidogrel [Plavix] 75 mg PO DAILY 04/20/17 [History] Isosorbide Mononitrate [Imdur] 60 mg PO DAILY 04/20/17 [History] lisinopriL [Lisinopril] 5 mg PO BEDTIME 08/25/19 [History] Cetirizine HCl 10 mg PO DAILY 03/25/20 [History] Gabapentin [Neurontin] 600 mg PO DAILY 03/25/20 [History] Nitroglycerin [Nitrostat] 0.4 mg SL 05/22/20 [History] Warfarin Sodium [Jantoven] 5 mg PO 05/22/20 [History] Past Medical History - Past Health History Medical/Surgical History: Denies Medical/Surgical History HEENT History: Reports: Other (See Below) Other HEENT History: [place], states occasionally has trouble swallowing Cardiovascular History: Reports: Angina, Hypertension, [place], Stents Respiratory History: Reports: Asthma, Other (See Below) Other Respiratory History: hx of smoking and asthma Quit smoking 20 years ago Gastrointestinal History: Reports: Chronic Constipation, GERD Other Gastrointestinal History: Last BM 04/20/2016 Musculoskeletal History: Reports: Other (See Below) Other Musculoskeletal History: hx of meniscal tear, left knee pain, Hx bone too long in foot and had surgery summer. Between great toe and next on left foot, pt has left shoulder pain for the past 2 months Neurological History: Reports: CVA, Seizure Psychiatric History: Reports: Depression Endocrine/Metabolic History: Reports: Diabetes, Type II, Hyperthyroidism Dermatologic History: Reports: Other (See Below) Other Dermatologic History: Lower legs with dark pigmented color - Infectious Disease History Infectious Disease History: Reports: Measles - Past Surgical History Head Surgeries/Procedures: Reports: None Cardiovascular Surgical History: Reports: Coronary Artery Bypass, Coronary Artery Stent Respiratory Surgical History: Reports: None GI Surgical History: Reports: None Other Musculoskeletal Surgeries/Procedures:: presently has left neck pain Social & Family History - Family History Family Medical History: No Pertinent Family History - Caffeine Use Caffeine Use: Reports: None Review of Systems - Review of Systems Review Of Systems: See Below Constitutional: Reports: No Symptoms Eyes: Reports: No Symptoms Ears: Reports: No Symptoms Nose: Reports: No Symptoms Mouth/Throat: Reports: No Symptoms Respiratory: Reports: No Symptoms Cardiovascular: Reports: No Symptoms GI/Abdominal: Reports: No Symptoms Genitourinary: Reports: No Symptoms Musculoskeletal: Reports: Shoulder Pain Skin: Reports: No Symptoms Neurological: Reports: No Symptoms Psychiatric: Reports: No Symptoms ED EXAM, GENERAL - Physical Exam Exam: See Below Exam Limited By: No Limitations General Appearance: Alert, No Apparent Distress Ears: Normal External Exam, Hearing Grossly Normal Nose: Normal Inspection Throat/Mouth: Normal Voice, No Airway Compromise Head: Atraumatic Neck: Normal Inspection, Non-Tender, Full Range of Motion Respiratory/Chest: No Respiratory Distress, Lungs Clear, Normal Breath Sounds, No Accessory Muscle Use Cardiovascular: Normal Peripheral Pulses, Systolic Murmur Peripheral Pulses: 3+: Carotid (L), Carotid (R), Radial (L), Radial (R), Dorsalis Pedis (L), Dorsalis Pedis (R) GI/Abdominal: Soft, Non-Tender Back Exam: Normal Inspection, Full Range of Motion. No: CVA Tenderness (R), CVA Tenderness (L) Extremities: Normal Capillary Refill, Pedal Edema, Limited Range of Motion Neurological: Alert, Oriented, Normal Cognition, Normal Gait, No Motor/Sensory Deficits Psychiatric: Normal Affect, Normal Mood Skin Exam: Warm, Dry, Intact, No Rash, Other (bilateral lower leg discolored with dressed wounds, no weeping noted) Lymphatic: No Adenopathy Course - Orders/Labs/Meds Meds: Medications Discontinued Medications Generic Name Dose Route Start Last Admin Trade Name Salty PRN Reason Stop Dose Admin Tramadol HCl 50 mg 08/28/20 20:12 Tramadol 50 Mg Tab PO 08/28/20 20:13 ONETIME ONE Departure - Departure Time of Disposition: 20:25 Disposition: Home, Self-Care 01 Clinical Impression: Chronic left shoulder pain - Discharge Information *PRESCRIPTION DRUG MONITORING PROGRAM REVIEWED*: Not Applicable *COPY OF PRESCRIPTION DRUG MONITORING REPORT IN PATIENT MORENO: Not Applicable Instructions: Shoulder Pain, [id number] Referrals: PCP,None [Primary Care Provider] - Forms: ED Department Discharge Additional Instructions: Follow up with PMD for your injection. Return to ED for any increased or new concerning symptoms. Take tylenol 650mg and/or ibuprofen 600 mg (with food) every 6 hours as needed for pain.
--- NOTE | 2020-08-28 20:19 | PCM.EKG ---
#1 Interpretation EKG Date: 08/28/20 Time: 19:44 Rhythm: NSR P-Wave: Present QRS: RBBB Comparison: No Change
[2020-08-28] MEDS: traMADol 50 MG Tab PO ONE (20:24)
[2020-08-28] MEDS: Acetaminophen 325 MG Tab PO ONE (20:26)
[2020-08-29 02:22] VITALS: BP 101/63; PULSE 89
== END 2020-08-28 20:34 | disposition home or self-care (01) ==
LOC: LB.ED 19:12
DX: G89.29 Other chronic pain (principal); M25.512 Pain in left shoulder; I10 Essential (primary) hypertension; I25.2 Old myocardial infarction; K21.9 Gastro-esophageal reflux disease without esophagitis; E11.9 Type 2 diabetes mellitus without complications; E03.9 Hypothyroidism, unspecified; Z79.899 Other long term (current) drug therapy; Z79.4 Long term (current) use of insulin
CPT/HCPCS: 93005; 99283; 99283-25; A9270-GY

== ENCOUNTER 2020-09-15 21:15 | Emergency (ER) | payer MEDICARE ==
--- NOTE | 2020-09-15 22:37 | ER ---
HISTORY OF PRESENT ILLNESS: A 70-year-old male who comes in by private car. The patient was getting into bed this evening when he slipped and fell backwards hitting his head. He scraped the back of his head and he is on blood thinners. He states that it just kept bleeding. They could not stop the bleeding and therefore, he came in for evaluation. The patient states that he has a headache. He denies any visual changes. He has not been nauseated and has not vomited. He denies any neck pain. OBJECTIVE: GENERAL APPEARANCE: The patient is awake and alert. HEENT: He does have a lot of blood on both sides of his head and scalp area. Evaluating the back of his scalp reveals an abrasion injury about 1.5 cm in diameter that is seeping blood. VITAL SIGNS: Reviewed. He is afebrile. O2 sats are 96%, pulse 85, blood pressure 100/64. The patient tells me that he often will run low on his blood pressure readings. DIAGNOSES: 1. Abrasion injury to scalp. 2. Hypotension. TREATMENT PLAN: We did hold pressure to the abrasion site for a couple of minutes while they were getting Surgicel ready, which I applied and then covered it with a pressure dressing and held in place just by hand for the first couple of minutes. I then checked it and the Surgicel seemed to be containing and clotting the blood, but there was no active bleeding at this time. Therefore, we did apply a new pressure dressing circumferentially using gauze over the Surgicel, Cathy, and then in turn covered with Coban. We monitored the patient for about 15 minutes and no further sign of bleeding was noted. The patient is nontender with palpation of the neck. He has lateral rotation that is about 50% of what I would say full range of motion, but he states this is his usual. There is no pain with neck rotation. Eyes; pupils equal, round, and reactive to light. Lungs are clear. Skin is warm and dry. DISCHARGE PLAN: The patient is to keep the initial pressure dressing on for up to 24 hours, removing if it becomes soiled or wet or soaked through with blood. If there is no further bleeding, he can downsize to a Band-Aid over the top of the Surgicel. The Surgicel should come off eventually, but they can leave it on as long as it is intact. The patient is to hold his blood pressure medicines tonight. He takes lisinopril 5 mg and metoprolol 25 mg. he is to resume taking his blood pressure medicines tomorrow. He is to come in and get a blood pressure check in a couple of days. He does have pain medications at home as well, telling me that he has hydrocodone and Tylenol. I advised him to use 1 hydrocodone tablet tonight and then try using Tylenol tomorrow for his headache. The patient is in agreement with the treatment plan and has no further questions. CLINTON/MODL /[id number]
[2020-09-16 00:37] VITALS: BP 100/64; PULSE 86
== END 2020-09-15 21:55 | disposition home or self-care (01) ==
LOC: LB.ED 21:15
DX: S00.01XA Abrasion of scalp, initial encounter (principal); I95.9 Hypotension, unspecified; W18.09XA Striking against other object with subsequent fall, initial encounter
CPT/HCPCS: 99282

== ENCOUNTER 2020-10-30 01:30 | Emergency (ER) | payer MEDICARE ==
[2020-10-30] MEDS: Morphine 10 MG/ML Syringe IM ONE (02:11)
[2020-10-30] MEDS: Heparin Sodium 5,000 UNITS/0.5 ML Syringe IVPUSH ONE (03:27)
[2020-10-30] MEDS: Heparin Sodium/D5W 25,000 UNITS/500 ML BAG IV SCH (03:30)
[2020-10-30 03:54] VITALS: BP 143/74; PULSE 81
--- NOTE | 2020-10-30 08:45 | CR ---
DATE OF SERVICE: 10/30/20 CLINICAL DATA: Left shoulder pain. LEFT SHOULDER: Comparison is made to a prior exam dated 05/22/20. There is marked narrowing of the subacromial space on today's exam with erosion of the undersurface of the acromion process consistent with a chronic rotator cuff tear. There are mild osteoarthritic changes of the AC and glenohumeral joints. No acute abnormalities. MRI scan would be helpful. [id number] [facility]
--- NOTE | 2020-10-30 08:49 | CR ---
DATE OF SERVICE: 10/30/20 CLINICAL DATA: Left Shoulder pain. SOB. AP PORTABLE CHEST: Comparison is made to a prior exam dated 10/05/20. The patient is status post median sternotomy and heart valve replacement. The heart is enlarged. There is calcification of the aortic arch. The patient has taken a poor inspiration. There is focal eventration of the right hemidiaphragm. There are mild atelectatic changes in both lung bases. There is slight thickening of the minor fissure on the right which may be a small amount of fluid within it. The lungs are otherwise clear. No pneumothorax. [id number] [facility]
--- NOTE | 2020-10-30 10:44 | EDM.PDOC ---
ED HPI GENERAL MEDICAL PROBLEM - General Chief Complaint: Upper Extremity Injury/Pain Stated Complaint: LEFT SHOULDER PAIN Time Seen by Provider: 10/30/20 01:50 - History of Present Illness INITIAL COMMENTS - FREE TEXT/NARRATIVE: patient arrives at the emergency room complaining of left shoulder pain which she has had for the last couple of days. He states he has ongoing issues with shoulder pain but it flared up when he was pulling on a car door just a day or so ago. He has pain at 5 or 6/10. He did take 1 nitro tablet but it did not help his pain. The patient does have extensive history of heart issues, having undergone CABG surgery in 2016, and stent placement in 2019. Patient denies any problems with fever, shortness of breath ,abdominal pain, nausea or vomiting. Treatments DIETARY SERVICES MANAGER: Reports: Cold Therapy, Nitroglycerin - Related Data Allergies Allergy/AdvReac Type Severity Reaction Status Date / Time No Known Allergies Allergy Verified 10/30/20 04:53 Home Meds: Home Meds Fluticasone/Salmeterol [Advair 250-50 Diskus] 2 puff INH BID 05/03/13 [History] Furosemide 40 mg PO DAILY 05/03/13 [History] metFORMIN [metFORMIN XR] 500 mg PO BIDM 02/08/14 [History] Docusate Sodium [Stool Softener] 250 mg PO DAILY 08/03/15 [History] Omeprazole 20 mg PO DAILY 08/03/15 [History] levETIRAcetam [Keppra] 500 mg PO BID 08/03/15 [History] Insulin Detemir [Levemir Flextouch] 30 unit SUBCUT BID 12/10/15 [History] methIMAzole [Methimazole] 15 mg PO DAILY 12/10/15 [History] Acetaminophen [Pain Reliever] 500 mg PO QID 04/20/17 [History] Clopidogrel [Plavix] 75 mg PO DAILY 04/20/17 [History] Isosorbide Mononitrate [Imdur] 30 mg PO DAILY 04/20/17 [History] lisinopriL [Lisinopril] 5 mg PO BEDTIME 08/25/19 [History] Cetirizine HCl 10 mg PO DAILY 03/25/20 [History] Gabapentin [Neurontin] 600 mg PO DAILY 03/25/20 [History] Nitroglycerin [Nitrostat] 0.4 mg SL ASDIRECTED 05/22/20 [History] Warfarin Sodium [Jantoven] 5 mg PO ASDIRECTED 05/22/20 [History] Cyanocobalamin (Vitamin B-12) [Vitamin B-12] 1,000 mcg PO DAILY 10/30/20 [History] DULoxetine HCl [Duloxetine HCl] 20 mg PO BID 10/30/20 [History] Ezetimibe 10 mg PO DAILY 10/30/20 [History] Ranolazine [Ranolazine ER] 1,000 mg PO BID 10/30/20 [History] Past Medical History - Past Health History Medical/Surgical History: Denies Medical/Surgical History HEENT History: Reports: Other (See Below) Other HEENT History: THREE AFFILIATED, states occasionally has trouble swallowing Cardiovascular History: Reports: Angina, Hypertension, [place], Stents Respiratory History: Reports: Asthma, Other (See Below) Other Respiratory History: hx of smoking and asthma Quit smoking 20 years ago Gastrointestinal History: Reports: Chronic Constipation, GERD Other Gastrointestinal History: Last BM 04/20/2016 Musculoskeletal History: Reports: Other (See Below) Other Musculoskeletal History: hx of meniscal tear, left knee pain, Hx bone too long in foot and had surgery summer. Between great toe and next on left foot, pt has left shoulder pain for the past 2 months Neurological History: Reports: CVA, Seizure Psychiatric History: Reports: Depression Endocrine/Metabolic History: Reports: Diabetes, Type II, Hyperthyroidism Dermatologic History: Reports: Other (See Below) Other Dermatologic History: Lower legs with dark pigmented color - Infectious Disease History Infectious Disease History: Reports: Measles - Past Surgical History Head Surgeries/Procedures: Reports: None Cardiovascular Surgical History: Reports: Coronary Artery Bypass, Coronary Artery Stent Respiratory Surgical History: Reports: None GI Surgical History: Reports: None Other Musculoskeletal Surgeries/Procedures:: presently has left neck pain Social & Family History - Family History Family Medical History: No Pertinent Family History - Tobacco Use Tobacco Use Status *Q: Former Tobacco User Used Tobacco, but Quit: Yes Month/Year Tobacco Last Used: 03/1998 - Caffeine Use Caffeine Use: Reports: None Review of Systems - Review of Systems Review Of Systems: Comprehensive ROS is negative, except as noted in HPI. Musculoskeletal: Reports: Other (Left shoulder pain.) ED EXAM, GENERAL - Physical Exam Exam: See Below Free Text/Narrative:: Physical exam patient is awake and alert he is in no respiratory distress he is obese. Examining the left shoulder reveals pain involving of the glenohumeral joint grade, radiating out over the rotator cuff muscle area. The patient has a significant increase in pain when trying to move his left arm forward or lift it. Lungs are clear to auscultation with slightly reduced air exchange. Cardiac heart sounds are distinct S1-S2 present did not hear any obvious murmurs. The patient has a well-healed midline scar from previous cardiac surgery. Oral mucous membranes are moist. Abdomen is soft protuberant and nontender to palpation bowel sounds are present. Skin is warm and dry. #1 Interpretation EKG Date: 10/30/20 QRS: RBBB EKG Interpretation Comments: There is ST depression noted in the anterior leads. Course - Vital Signs Text/Narrative:: EKG was obtained showing a right bundle branch block, and some ST depression noted in the anterior leads. Chest x-ray is obtained and I do not see any acute abnormalities. Labs include CBC and CMP which are unremarkable and INR is 1.5 troponin is 0.283. Last Recorded V/S: Last Vital Signs Temp 97.5 F 10/30/20 01:35 Pulse 81 10/30/20 01:35 Resp 20 10/30/20 01:35 BP 143/74 H 10/30/20 01:35 Pulse Ox 98 10/30/20 01:35 - Orders/Labs/Meds Orders: Active Orders 24 hr Category Date Time Status Heparin Sodium/D5W [Heparin 25,000 Units in D5W 500 ML] Med 10/30/20 03:15 Active 25,000 units in 500 ml IV TITRATE Medication Orders Heparin Sodium/Dextrose (Heparin 25,000 Units In D5w 500 Ml) 25,000 units in 500 mls @ 26.16 mls/hr IV TITRATE CLAUDIO; Protocol Last Admin: 10/30/20 03:30 Dose: 12 units/kg/hr, 26.16 mls/hr Documented by: ALBERTO Cosigned by: RICH Labs: Laboratory Tests 10/30/20 10/30/20 10/30/20 Range/Units 02:10 02:10 02:10 WBC 6.3 (4.0-11.0) K/uL RBC 3.80 L (4.50-6.50) M/uL Hgb 10.0 L (13.0-18.0) g/dL Hct 30.6 L (40.0-54.0) % MCV 81 (76-96) fL MCH 26.3 L (27.0-32.0) pg MCHC 32.7 (31.0-35.0) g/dL RDW 17.0 H (11.0-16.0) % Plt Count 143 L (150-400) K/uL MPV 8.3 (6.0-10.0) fL Neut % (Auto) 56.3 (45.0-70.0) % Lymph % (Auto) 29.3 (20.0-40.0) % Ripley % (Auto) 11.7 H (3.0-10.0) % Eos % (Auto) 2.2 (1.0-5.0) % Baso % (Auto) 0.5 (0.0-0.5) % Neut # (Auto) 3.57 (2.00-7.50) K/uL Lymph # (Auto) 1.86 (1.50-4.00) K/uL Ripley # (Auto) 0.74 (0.20-0.80) K/uL Eos # (Auto) 0.14 (0.04-0.40) K/uL Baso # (Auto) 0.03 (0.02-0.10) K/uL PT 15.0 H D (9.0-11.5) sec INR 1.5 D (1.0-3.5) Sodium 139 (136-145) mmol/L Potassium 4.6 D (3.5-5.1) mmol/L Chloride 103 (98-107) mmol/L Carbon Dioxide 28.7 (21.0-32.0) mmol/L Anion Gap 11.9 (5.0-15.0) mmol/L BUN 19 (8-26) mg/dL Creatinine 1.14 D (0.70-1.30) mg/dL Est Cr Clr Drug Dosing TNP Estimated GFR (MDRD) > 60 (>60) MLS/MIN BUN/Creatinine Ratio 16.7 (6-25) Glucose 163 H D (74-100) mg/dL Calcium 8.9 (8.5-10.1) mg/dL Total Bilirubin 0.2 D (0.0-1.0) mg/dL AST 20 (15-37) U/L ALT 22 (12-78) U/L Alkaline Phosphatase 87 (46-116) U/L Troponin I 0.283 H* D (0.000-0.060) ng/mL Total Protein 6.7 (6.4-8.2) g/dL Albumin 3.2 L (3.4-5.0) g/dL Globulin 3.5 (2.2-4.2) g/dL Albumin/Globulin Ratio 0.9 (0.8-2.0) Meds: Medications Generic Name Dose Route Start Last Admin Trade Name Freq PRN Reason Stop Dose Admin Heparin Sodium/Dextrose 25,000 units in 500 mls @ 26.16 mls/hr 10/30/20 03:15 10/30/20 03:30 Heparin 25,000 Units In D5w 500 Ml IV 12 units/kg/hr TITRATE CLAUDIO 26.16 mls/hr Administration Protocol 12 UNITS/KG/HR Discontinued Medications Generic Name Dose Route Start Last Admin Trade Name Freq PRN Reason Stop Dose Admin Heparin Sodium (Porcine) 4,000 units 10/30/20 03:16 10/30/20 03:27 Heparin Sodium 5,000 Units/0.5 Ml Syringe IVPUSH 10/30/20 03:17 4,000 units ONETIME ONE Administration Morphine Sulfate 4 mg 10/30/20 02:07 10/30/20 02:11 Morphine 10 Mg/Ml Syringe IM 10/30/20 02:08 4 mg ONETIME ONE Administration - Radiology Interpretation Free Text/Narrative:: Toradol 60 mg was given IM which completely resolved the patient's pain. Departure - Departure Time of Disposition: 03:55 Disposition: DC/Tfer to Acute Hospital 02 Condition: Good Clinical Impression: NSTEMI (non-ST elevated myocardial infarction) - Discharge Information *PRESCRIPTION DRUG MONITORING PROGRAM REVIEWED*: Not Applicable *COPY OF PRESCRIPTION DRUG MONITORING REPORT IN PATIENT MORENO: Not Applicable Referrals: PCP,None [Primary Care Provider] - Additional Instructions: Discharge plan I did consult with cardiology at [facility] in [place] who accepted the patient. I then consulted with the hospitalist Dr. Gonzalez who also accepted the patient. Arrangements are being made for the patient to be transferred by [facility]. The patient was given Toradol in the emergency room initially which resolved his shoulder pain completely. A heparin drip was started per cardiology consult. Upon discharge from the ER the patient is in guarded but stable condition. Sepsis Event Note (ED) - Evaluation Sepsis Screening Result: No Definite Risk - Focused Exam Vital Signs: Vital Signs Temp Pulse Resp BP Pulse Ox 10/30/20 01:35 97.5 F 81 20 143/74 H 98 - My Orders Last 24 Hours: My Active Orders 10/30/20 03:15 Heparin Sodium/D5W [Heparin 25,000 Units in D5W 500 ML] 25,000 units in 500 ml IV TITRATE - Assessment/Plan Last 24 Hours: My Active Orders 10/30/20 03:15 Heparin Sodium/D5W [Heparin 25,000 Units in D5W 500 ML] 25,000 units in 500 ml IV TITRATE
== END 2020-10-30 04:10 ==
LOC: LB.ED 01:30
DX: I21.4 Non-ST elevation (NSTEMI) myocardial infarction (principal); I10 Essential (primary) hypertension; I25.2 Old myocardial infarction; E11.9 Type 2 diabetes mellitus without complications; E03.9 Hypothyroidism, unspecified; K21.9 Gastro-esophageal reflux disease without esophagitis; Z95.1 Presence of aortocoronary bypass graft; Z79.4 Long term (current) use of insulin; Z79.02 Long term (current) use of antithrombotics/antiplatelets; Z79.01 Long term (current) use of anticoagulants; Z79.899 Other long term (current) drug therapy; Z87.891 Personal history of nicotine dependence
CPT/HCPCS: 36415; 71045; 73030-LT; 80053; 84484; 85025; 85610; 93005; 96365; 96372; 99285-25; J1644; J1644-GY; J2270

== ENCOUNTER 2021-01-05 18:10 | Emergency (ER) | payer MEDICARE ==
[2021-01-05] MEDS ORDERED: Morphine 4 MG/ML VIAL IVPUSH ONE (18:29)
[2021-01-05] MEDS ORDERED: Aspirin 81 MG Tab.Chew PO ONE (18:43)
[2021-01-05] MEDS ORDERED: Nitroglycerin 0.4 MG Tab.SL SL PRN (18:43)
[2021-01-05] MEDS ORDERED: HYDROmorphone 2 MG/ML SDV IVPUSH ONE (18:48)
[2021-01-05] MEDS ORDERED: Heparin Sodium/D5W 25,000 UNITS/500 ML BAG IV SCH (18:50)
[2021-01-05] MEDS ORDERED: Heparin Sodium 5,000 UNITS/0.5 ML Syringe IVPUSH ONE (19:25)
[2021-01-05] MEDS ORDERED: Nitroglycerin/D5W 25 MG/250 ML BOTTLE IV SCH (19:45)
--- NOTE | 2021-01-05 20:36 | EDM.PDOC ---
ED HPI GENERAL MEDICAL PROBLEM - General Chief Complaint: Cardiovascular Problem Stated Complaint: CHEST PAIN Time Seen by Provider: 01/05/21 18:11 - History of Present Illness INITIAL COMMENTS - FREE TEXT/NARRATIVE: Pt comes in with C/O chest pain on the left side going into his left shoulder and down his arm. He rated the pain at 8-9/10. He did take 1 nitro without much relief. This started today after walking up a small hill. He has extensive Hx of CAD with Hx of 19 stents, the most recent last year, and a 3 vessel CABG in 2015. Nitro was given x 1 without relief. Followed by 4 baby ASA - Morphine 4 mg was given IV which brought his pain down for only a couple minutes. This was followed by Dilaudid, which brought his pain to a 6/10. He is taking Plavix and ASA at home. He is also on Coumadin for CVA in 2013. - Related Data Allergies Allergy/AdvReac Type Severity Reaction Status Date / Time No Known Allergies Allergy Verified 01/05/21 19:49 Home Meds: Home Meds Fluticasone/Salmeterol [Advair 250-50 Diskus] 2 puff INH BID 05/03/13 [History] Furosemide 40 mg PO DAILY 05/03/13 [History] metFORMIN [metFORMIN XR] 500 mg PO BIDM 02/08/14 [History] Docusate Sodium [Stool Softener] 250 mg PO DAILY 08/03/15 [History] Omeprazole 20 mg PO DAILY 08/03/15 [History] levETIRAcetam [Keppra] 500 mg PO BID 08/03/15 [History] Insulin Detemir [Levemir Flextouch] 30 unit SUBCUT BID 12/10/15 [History] methIMAzole [Methimazole] 15 mg PO DAILY 12/10/15 [History] Acetaminophen [Pain Reliever] 500 mg PO QID 04/20/17 [History] Clopidogrel [Plavix] 75 mg PO DAILY 04/20/17 [History] Isosorbide Mononitrate [Imdur] 30 mg PO DAILY 04/20/17 [History] lisinopriL [Lisinopril] 5 mg PO BEDTIME 08/25/19 [History] Cetirizine HCl 10 mg PO DAILY 03/25/20 [History] Gabapentin [Neurontin] 600 mg PO DAILY 03/25/20 [History] Nitroglycerin [Nitrostat] 0.4 mg SL ASDIRECTED 05/22/20 [History] Warfarin Sodium [Jantoven] 5 mg PO ASDIRECTED 05/22/20 [History] Cyanocobalamin (Vitamin B-12) [Vitamin B-12] 1,000 mcg PO DAILY 10/30/20 [History] DULoxetine HCl [Duloxetine HCl] 20 mg PO BID 10/30/20 [History] Ezetimibe 10 mg PO DAILY 10/30/20 [History] Ranolazine [Ranolazine ER] 1,000 mg PO BID 10/30/20 [History] Past Medical History - Past Health History Medical/Surgical History: Denies Medical/Surgical History HEENT History: Reports: Other (See Below) Other HEENT History: [place], states occasionally has trouble swallowing Cardiovascular History: Reports: Angina, Hypertension, CT, Stents Respiratory History: Reports: Asthma, Other (See Below) Other Respiratory History: hx of smoking and asthma Quit smoking 20 years ago Gastrointestinal History: Reports: Chronic Constipation, GERD Other Gastrointestinal History: Last BM 04/20/2016 Musculoskeletal History: Reports: Other (See Below) Other Musculoskeletal History: hx of meniscal tear, left knee pain, Hx bone too long in foot and had surgery summer. Between great toe and next on left foot, pt has left shoulder pain for the past 2 months Neurological History: Reports: CVA, Seizure Psychiatric History: Reports: Depression Endocrine/Metabolic History: Reports: Diabetes, Type II, Hyperthyroidism Dermatologic History: Reports: Other (See Below) Other Dermatologic History: Lower legs with dark pigmented color - Infectious Disease History Infectious Disease History: Reports: Measles - Past Surgical History Head Surgeries/Procedures: Reports: None Cardiovascular Surgical History: Reports: Coronary Artery Bypass, Coronary Artery Stent Respiratory Surgical History: Reports: None GI Surgical History: Reports: None Other Musculoskeletal Surgeries/Procedures:: presently has left neck pain Social & Family History - Family History Family Medical History: No Pertinent Family History - Caffeine Use Caffeine Use: Reports: None ED ROS GENERAL - Review of Systems Review Of Systems: Comprehensive ROS is negative, except as noted in HPI. Cardiovascular: Reports: Chest Pain (That radiates into left shoulder and arm.) ED EXAM, GENERAL - Physical Exam Exam: See Below General Appearance: Mild Distress Cardiovascular: Tachycardia (with an initial pulse of 108.) #1 Interpretation EKG Date: 01/05/21 Time: 18:10 ST-T: Depressed (possible in anterior leads.) #2 Interpretation EKG Date: 01/05/21 Time: 20:05 ST-T: Elevated (In Inferior leads.) Course - Vital Signs Last Recorded V/S: Last Vital Signs Temp 98.2 F 01/05/21 18:10 Pulse 92 01/05/21 19:05 Resp 18 01/05/21 19:05 BP 160/76 H 01/05/21 19:05 Pulse Ox 93 L 01/05/21 19:05 - Orders/Labs/Meds Orders: Active Orders 24 hr Category Date Time Status Chest 1V Frontal [CR] Stat Exams 01/05/21 18:30 Taken CORONAVIRUS COVID-19 RAPID [MOLEC] Stat Lab 01/05/21 20:28 Ordered Heparin Sodium/D5W [Heparin 25,000 Units in D5W 500 ML] Med 01/05/21 18:50 Active 25,000 units in 500 ml IV TITRATE Nitroglycerin 25 MG in D5W @ 10 MCG/MIN(250ml) Premix Med 01/05/21 19:45 Ordered Nitroglycerin/D5W [Nitroglycerin 25 MG/D5W 250 ML] 25 mg in 250 ml IV TITRATE Nitroglycerin [Nitrostat] Med 01/05/21 18:43 Active 0.4 mg SL Q5M PRN Medication Orders Nitroglycerin/Dextrose (Nitroglycerin 25 Mg/D5w 250 Ml) 25 mg in 250 mls @ 6 mls/hr IV TITRATE CLAUDIO; Protocol Last Admin: 01/05/21 19:51 Dose: 10 mcg/min, 6 mls/hr Documented by: ALBERTO Heparin Sodium/Dextrose (Heparin 25,000 Units In D5w 500 Ml) 25,000 units in 500 mls @ 25.583 mls/hr IV TITRATE CLAUDIO; Protocol Last Admin: 01/05/21 18:50 Dose: 12 units/kg/hr, 25.583 mls/hr Documented by: ALBERTO Cosigned by: LINA Nitroglycerin (Nitroglycerin 0.4 Mg Tab.Sl) 0.4 mg SL Q5M PRN PRN Reason: Chest Pain Last Admin: 01/05/21 18:14 Dose: 0.4 mg Documented by: LINA Labs: Laboratory Tests 01/05/21 01/05/21 01/05/21 Range/Units 18:29 18:29 18:29 WBC 6.4 (4.0-11.0) K/uL RBC 4.36 L (4.50-6.50) M/uL Hgb 11.0 L (13.0-18.0) g/dL Hct 34.0 L (40.0-54.0) % MCV 78 (76-96) fL MCH 25.2 L (27.0-32.0) pg MCHC 32.4 (31.0-35.0) g/dL RDW 17.8 H (11.0-16.0) % Plt Count 190 D (150-400) K/uL MPV 7.9 (6.0-10.0) fL Neut % (Auto) 61.2 (45.0-70.0) % Lymph % (Auto) 27.2 (20.0-40.0) % [place] % (Auto) 10.2 H (3.0-10.0) % Eos % (Auto) 1.1 (1.0-5.0) % Baso % (Auto) 0.3 (0.0-0.5) % Neut # (Auto) 3.89 (2.00-7.50) K/uL Lymph # (Auto) 1.73 (1.50-4.00) K/uL [place] # (Auto) 0.65 (0.20-0.80) K/uL Eos # (Auto) 0.07 (0.04-0.40) K/uL Baso # (Auto) 0.02 (0.02-0.10) K/uL PT 13.1 H D (9.0-11.5) sec INR 1.3 D (1.0-3.5) Sodium 137 (136-145) mmol/L Potassium 4.5 (3.5-5.1) mmol/L Chloride 104 (98-107) mmol/L Carbon Dioxide 29.2 (21.0-32.0) mmol/L Anion Gap 8.3 (5.0-15.0) mmol/L BUN 18 (8-26) mg/dL Creatinine 1.29 (0.70-1.30) mg/dL Est Cr Clr Drug Dosing TNP Estimated GFR (MDRD) 55 L (>60) MLS/MIN BUN/Creatinine Ratio 14.0 (6-25) Glucose 333 H D (74-100) mg/dL Calcium 8.9 (8.5-10.1) mg/dL Total Bilirubin 0.2 (0.0-1.0) mg/dL AST 13 L (15-37) U/L ALT 24 (12-78) U/L Alkaline Phosphatase 107 (46-116) U/L Troponin I 0.254 H* (0.000-0.060) ng/mL Total Protein 6.8 (6.4-8.2) g/dL Albumin 3.3 L (3.4-5.0) g/dL Globulin 3.5 (2.2-4.2) g/dL Albumin/Globulin Ratio 0.9 (0.8-2.0) Meds: Medications Generic Name Dose Route Start Last Admin Trade Name Freq PRN Reason Stop Dose Admin Nitroglycerin/Dextrose 25 mg in 250 mls @ 6 mls/hr 01/05/21 19:45 01/05/21 19:51 Nitroglycerin 25 Mg/D5w 250 Ml IV 10 mcg/min TITRATE CLAUDIO 6 mls/hr Administration Protocol 10 MCG/MIN Heparin Sodium/Dextrose 25,000 units in 500 mls @ 25.583 mls/hr 01/05/21 18:50 01/05/21 18:50 Heparin 25,000 Units In D5w 500 Ml IV 12 units/kg/hr TITRATE CLAUDIO 25.583 mls/hr Administration Protocol 12 UNITS/KG/HR Nitroglycerin 0.4 mg 01/05/21 18:43 01/05/21 18:14 Nitroglycerin 0.4 Mg Tab.Sl SL 0.4 mg Q5M PRN Administration Chest Pain Discontinued Medications Generic Name Dose Route Start Last Admin Trade Name Freq PRN Reason Stop Dose Admin Aspirin 324 mg 01/05/21 18:43 01/05/21 18:15 Aspirin 81 Mg Tab.Chew PO 01/05/21 18:44 324 mg ONETIME ONE Administration Heparin Sodium (Porcine) 4,000 units 01/05/21 19:25 01/05/21 19:50 Heparin Sodium 5,000 Units/0.5 Ml Syringe IVPUSH 01/05/21 19:26 4,000 units ONETIME ONE Administration Hydromorphone HCl 1 mg 01/05/21 18:48 01/05/21 18:50 Hydromorphone 2 Mg/Ml Sdv IVPUSH 01/05/21 18:49 1 mg ONETIME ONE Administration Morphine Sulfate 4 mg 01/05/21 18:29 01/05/21 18:31 Morphine 4 Mg/Ml Vial IVPUSH 01/05/21 18:30 4 mg ONETIME ONE Administration - Radiology Interpretation Free Text/Narrative:: CXR is unremarkable for any acute changes. - Re-Assessments/Exams Free Text/Narrative Re-Assessment/Exam: 01/05/21 20:40 Troponin is elevated at .254. Other labs are ok. I did consult with Cardiology at [facility] in [place] Dr Combs - who feels he has a STEMI. I then called [facility] and consulted Dr Anderson who accepted the pt. Arrangements are being made for transfer now by air. Heparin was given 4,000 bolus folwed by a drip. Nitro drip also started - this brought his pain down to 2 / 10. Pt's condition gaurded. Departure - Departure Time of Disposition: 21:45 Disposition: DC/Tfer to Acute Hospital 02 Reason for Transfer *Q: Primary PCI Indicated Condition: Good Clinical Impression: STEMI (ST elevation myocardial infarction) Qualifiers: Involved coronary artery: unspecified coronary artery Qualified Code(s): I21.3 - ST elevation (STEMI) myocardial infarction of unspecified site Sepsis Event Note (ED) - Evaluation Sepsis Screening Result: No Definite Risk - Focused Exam Vital Signs: Vital Signs Temp Pulse Resp BP BP Pulse Ox 01/05/21 19:05 92 18 160/76 H 93 L 01/05/21 18:31 95 22 H 154/78 H 98 01/05/21 18:20 18 157/79 H 96 01/05/21 18:16 141/88 H 01/05/21 18:14 140/90 140/90 01/05/21 18:10 98.2 F 102 H 23 H 134/95 H 98 - My Orders Last 24 Hours: My Active Orders 01/05/21 18:30 Chest 1V Frontal [CR] Stat 01/05/21 18:43 Nitroglycerin [Nitrostat] 0.4 mg SL Q5M PRN 01/05/21 18:50 Heparin Sodium/D5W [Heparin 25,000 Units in D5W 500 ML] 25,000 units in 500 ml IV TITRATE 01/05/21 19:45 Nitroglycerin 25 MG in D5W @ 10 MCG/MIN(250ml) Premix Nitroglycerin/D5W [Nitroglycerin 25 MG/D5W 250 ML] 25 mg in 250 ml IV TITRATE 01/05/21 20:28 CORONAVIRUS COVID-19 RAPID [MOLEC] Stat - Assessment/Plan Last 24 Hours: My Active Orders 01/05/21 18:30 Chest 1V Frontal [CR] Stat 01/05/21 18:43 Nitroglycerin [Nitrostat] 0.4 mg SL Q5M PRN 01/05/21 18:50 Heparin Sodium/D5W [Heparin 25,000 Units in D5W 500 ML] 25,000 units in 500 ml IV TITRATE 01/05/21 19:45 Nitroglycerin 25 MG in D5W @ 10 MCG/MIN(250ml) Premix Nitroglycerin/D5W [Nitroglycerin 25 MG/D5W 250 ML] 25 mg in 250 ml IV TITRATE 01/05/21 20:28 CORONAVIRUS COVID-19 RAPID [MOLEC] Stat
[2021-01-05 21:07] VITALS: BP 144/75; PULSE 91
--- NOTE | 2021-01-06 08:16 | CR ---
Date of Service: 01/05/21 Clinical Data: Chest pain. PORTABLE CHEST: Patient has taken a very poor inspiration and is in an apical lordotic position. The patient is status post median sternotomy. The heart is enlarged. There are atelectatic changes in both lung bases. The lungs are otherwise clear. No pneumothorax. No pleural effusions. [id number] [facility]
== END 2021-01-05 22:10 ==
LOC: LB.ED 18:10
DX: I21.3 ST elevation (STEMI) myocardial infarction of unspecified site (principal); I10 Essential (primary) hypertension; I25.2 Old myocardial infarction; I25.10 Atherosclerotic heart disease of native coronary artery without angina pectoris; K21.9 Gastro-esophageal reflux disease without esophagitis; E11.9 Type 2 diabetes mellitus without complications; E05.90 Thyrotoxicosis, unspecified without thyrotoxic crisis or storm; Z79.84 Long term (current) use of oral hypoglycemic drugs; Z79.899 Other long term (current) drug therapy; Z79.4 Long term (current) use of insulin; Z95.5 Presence of coronary angioplasty implant and graft; Z20.822 Contact with and (suspected) exposure to COVID-19
CPT/HCPCS: 36415; 71045; 80053; 84484; 85025; 85610; 93005; 96365; 96375; 99285; A9270; J1170; J1644; J2270; J3490; U0002

== ENCOUNTER 2021-02-09 20:16 | Observation (INO) | payer MEDICARE ==
[2021-02-09] MEDS ORDERED: Ondansetron 4 MG Tab.DIS PO ONE (20:52)
[2021-02-09] MEDS ORDERED: Morphine 4 MG/ML VIAL IVPUSH ONE (20:57)
[2021-02-09] MEDS ORDERED: Sodium Chloride 0.9% 10 ML Syringe FLUSH PRN (20:57)
--- NOTE | 2021-02-09 20:58 | EDM.PDOC ---
ED HPI GENERAL MEDICAL PROBLEM - General Chief Complaint: Gastrointestinal Problem Stated Complaint: VOMITING Time Seen by Provider: 02/09/21 20:38 Source of Information: Reports: Patient History Limitations: Reports: No Limitations - History of Present Illness INITIAL COMMENTS - FREE TEXT/NARRATIVE: patient presented to the ER with a c/o epigastric pain and emesis. Reports it started 4-5 hrs ago and has been getting worse. no fever or chills. it is mainly epigastric and RUQ. h/o CAD and multiple stents placement. on Plavix and Coumadin. Patient here with nausea and emesis. Right Lower Abdominal Pain Score (Numeric/FACES): 6 - Related Data Allergies Allergy/AdvReac Type Severity Reaction Status Date / Time No Known Allergies Allergy Verified 01/05/21 19:49 Home Meds: Home Meds Fluticasone/Salmeterol [Advair 250-50 Diskus] 2 puff INH BID 05/03/13 [History] Furosemide 40 mg PO DAILY 05/03/13 [History] metFORMIN [metFORMIN XR] 500 mg PO BIDM 02/08/14 [History] Docusate Sodium [Stool Softener] 250 mg PO DAILY 08/03/15 [History] Omeprazole 20 mg PO DAILY 08/03/15 [History] levETIRAcetam [Keppra] 500 mg PO BID 08/03/15 [History] Insulin Detemir [Levemir Flextouch] 30 unit SUBCUT BID 12/10/15 [History] methIMAzole [Methimazole] 15 mg PO DAILY 12/10/15 [History] Acetaminophen [Pain Reliever] 500 mg PO QID 04/20/17 [History] Clopidogrel [Plavix] 75 mg PO DAILY 04/20/17 [History] Isosorbide Mononitrate [Imdur] 30 mg PO DAILY 04/20/17 [History] lisinopriL [Lisinopril] 5 mg PO BEDTIME 08/25/19 [History] Cetirizine HCl 10 mg PO DAILY 03/25/20 [History] Gabapentin [Neurontin] 600 mg PO DAILY 03/25/20 [History] Nitroglycerin [Nitrostat] 0.4 mg SL ASDIRECTED 05/22/20 [History] Warfarin Sodium [Jantoven] 5 mg PO ASDIRECTED 05/22/20 [History] Cyanocobalamin (Vitamin B-12) [Vitamin B-12] 1,000 mcg PO DAILY 10/30/20 [History] DULoxetine HCl [Duloxetine HCl] 20 mg PO BID 10/30/20 [History] Ezetimibe 10 mg PO DAILY 10/30/20 [History] Ranolazine [Ranolazine ER] 1,000 mg PO BID 10/30/20 [History] Past Medical History - Past Health History Medical/Surgical History: Denies Medical/Surgical History HEENT History: Reports: Other (See Below) Other HEENT History: [place], states occasionally has trouble swallowing Cardiovascular History: Reports: Angina, Hypertension, [place], Stents Respiratory History: Reports: Asthma, Other (See Below) Other Respiratory History: hx of smoking and asthma Quit smoking 20 years ago Gastrointestinal History: Reports: Chronic Constipation, GERD Other Gastrointestinal History: Last BM 04/20/2016 Musculoskeletal History: Reports: Other (See Below) Other Musculoskeletal History: hx of meniscal tear, left knee pain, Hx bone too long in foot and had surgery summer. Between great toe and next on left foot, pt has left shoulder pain for the past 2 months Neurological History: Reports: CVA, Seizure Psychiatric History: Reports: Depression Endocrine/Metabolic History: Reports: Diabetes, Type II, Hyperthyroidism Dermatologic History: Reports: Other (See Below) Other Dermatologic History: Lower legs with dark pigmented color - Infectious Disease History Infectious Disease History: Reports: Measles - Past Surgical History Head Surgeries/Procedures: Reports: None Cardiovascular Surgical History: Reports: Coronary Artery Bypass, Coronary Artery Stent Respiratory Surgical History: Reports: None GI Surgical History: Reports: None Other Musculoskeletal Surgeries/Procedures:: presently has left neck pain Social & Family History - Family History Family Medical History: No Pertinent Family History - Caffeine Use Caffeine Use: Reports: None ED ROS GENERAL - Review of Systems Review Of Systems: See Below Constitutional: Reports: No Symptoms HEENT: Reports: No Symptoms Respiratory: Reports: No Symptoms Cardiovascular: Reports: Dyspnea on Exertion GI/Abdominal: Reports: Abdominal Pain, Anorexia Musculoskeletal: Reports: No Symptoms Neurological: Reports: No Symptoms Psychiatric: Reports: No Symptoms ED EXAM, GI/ABD - Physical Exam Exam: See Below Exam Limited By: No Limitations General Appearance: Alert, WD/WN, Mild Distress Eyes: Bilateral: EOMI Head: Atraumatic Respiratory/Chest: No Respiratory Distress, Lungs Clear Cardiovascular: Normal Peripheral Pulses, Regular Rate, Rhythm GI/Abdominal Exam: Normal Bowel Sounds, No Distention, Tender (RUQ) Neurological: Alert, Oriented Psychiatric: Normal Affect, Normal Mood #1 Interpretation EKG Date: 02/09/21 Rhythm: NSR Ball: Normal P-Wave: Present QRS: Normal ST-T: Normal QT: Normal Course - Vital Signs Last Recorded V/S: Last Vital Signs Temp 36.6 C 02/09/21 23:31 Pulse 86 02/09/21 23:31 Resp 16 02/09/21 23:31 BP 146/80 H 02/09/21 23:31 Pulse Ox 93 L 02/09/21 23:31 - Orders/Labs/Meds Orders: Active Orders 24 hr Category Date Time Status Abdomen Pelvis w Cont [CT] Stat Exams 02/09/21 22:10 Taken Iopamidol [Isovue-300 (61%)] Med 02/09/21 22:45 Active 100 ml IV . DIRECTED Ketorolac [Toradol] Med 02/10/21 00:02 Once 15 mg IVPUSH ONETIME ONE Lactated Ringers [Ringers, Lactated] 1,000 ml Med 02/09/21 22:15 Active IV ASDIRECTED Sodium Chloride 0.9% [Saline Flush] Med 02/09/21 20:57 Active 10 ml FLUSH ASDIRECTED PRN Saline Lock Insert [OM.PC] Routine Oth 02/09/21 20:57 Ordered Medication Orders Lactated Ringer's (Ringers, Lactated) 1,000 mls @ 150 mls/hr IV ASDIRECTED [facility] Last Admin: 02/09/21 22:19 Dose: 150 mls/hr Documented by: SAHIL Iopamidol (Iopamidol 612 Mg/Ml 100 Ml Bottle) 100 ml IV . DIRECTED CLAUDIO Last Admin: 02/09/21 23:10 Dose: 100 ml Documented by: LATASHA Sodium Chloride (Sodium Chloride 0.9% 10 Ml Syringe) 10 ml FLUSH ASDIRECTED PRN PRN Reason: Keep Vein Open Labs: Laboratory Tests 02/09/21 02/09/21 02/09/21 Range/Units 20:57 20:57 22:00 WBC 4.3 D (4.0-11.0) K/uL RBC 4.94 (4.50-6.50) M/uL Hgb 12.2 L (13.0-18.0) g/dL Hct 37.1 L (40.0-54.0) % MCV 75 L (76-96) fL MCH 24.7 L (27.0-32.0) pg MCHC 32.9 (31.0-35.0) g/dL RDW 18.7 H (11.0-16.0) % Plt Count 147 L D (150-400) K/uL MPV 8.5 (6.0-10.0) fL Sodium 138 (136-145) mmol/L Potassium 4.2 (3.5-5.1) mmol/L Chloride 102 (98-107) mmol/L Carbon Dioxide 23.0 D (21.0-32.0) mmol/L Anion Gap 17.2 H (5.0-15.0) mmol/L BUN 12 D (8-26) mg/dL Creatinine 1.10 (0.70-1.30) mg/dL Est Cr Clr Drug Dosing TNP Estimated GFR (MDRD) > 60 (>60) MLS/MIN BUN/Creatinine Ratio 10.9 (6-25) Glucose 163 H D (74-100) mg/dL Calcium 9.1 (8.5-10.1) mg/dL Total Bilirubin 0.5 D (0.0-1.0) mg/dL AST 14 L (15-37) U/L ALT 20 (12-78) U/L Alkaline Phosphatase 92 (46-116) U/L Troponin I 0.310 H* (0.000-0.060) ng/mL Total Protein 7.4 (6.4-8.2) g/dL Albumin 3.8 (3.4-5.0) g/dL Globulin 3.6 (2.2-4.2) g/dL Albumin/Globulin Ratio 1.1 (0.8-2.0) Urine Color Urine Appearance (CLEAR) Urine pH (5.0-8.0) Ur Specific [place] (1.003-1.030) Urine Protein (NEGATIVE) mg/dL Urine Glucose (UA) (NEGATIVE) mg/dL Urine Ketones (NEGATIVE) mg/dL Urine Occult Blood (NEGATIVE) Urine Nitrite (NEGATIVE) Urine Bilirubin (NEGATIVE) Urine Urobilinogen (0.2-1.0) E.U./dL Ur Leukocyte Esterase (NEGATIVE) SARS CoV-2 RNA Rapid MAHAD Positive H 02/09/21 Range/Units 23:24 WBC (4.0-11.0) K/uL RBC (4.50-6.50) M/uL Hgb (13.0-18.0) g/dL Hct (40.0-54.0) % MCV (76-96) fL MCH (27.0-32.0) pg MCHC (31.0-35.0) g/dL RDW (11.0-16.0) % Plt Count (150-400) K/uL MPV (6.0-10.0) fL Sodium (136-145) mmol/L Potassium (3.5-5.1) mmol/L Chloride (98-107) mmol/L Carbon Dioxide (21.0-32.0) mmol/L Anion Gap (5.0-15.0) mmol/L BUN (8-26) mg/dL Creatinine (0.70-1.30) mg/dL Est Cr Clr Drug Dosing Estimated GFR (MDRD) (>60) MLS/MIN BUN/Creatinine Ratio (6-25) Glucose (74-100) mg/dL Calcium (8.5-10.1) mg/dL Total Bilirubin (0.0-1.0) mg/dL AST (15-37) U/L ALT (12-78) U/L Alkaline Phosphatase (46-116) U/L Troponin I (0.000-0.060) ng/mL Total Protein (6.4-8.2) g/dL Albumin (3.4-5.0) g/dL Globulin (2.2-4.2) g/dL Albumin/Globulin Ratio (0.8-2.0) Urine Color Yellow Urine Appearance Clear (CLEAR) Urine pH 5.5 (5.0-8.0) Ur Specific [place] >= 1.030 (1.003-1.030) Urine Protein Negative (NEGATIVE) mg/dL Urine Glucose (UA) 100 H (NEGATIVE) mg/dL Urine Ketones 40 H (NEGATIVE) mg/dL Urine Occult Blood Negative (NEGATIVE) Urine Nitrite Negative (NEGATIVE) Urine Bilirubin Small H (NEGATIVE) Urine Urobilinogen 1.0 (0.2-1.0) E.U./dL Ur Leukocyte Esterase Negative (NEGATIVE) SARS CoV-2 RNA Rapid MAHAD Meds: Medications Generic Name Dose Route Start Last Admin Trade Name Salty PRN Reason Stop Dose Admin Lactated Ringer's 1,000 mls @ 150 mls/hr 02/09/21 22:15 02/09/21 22:19 Ringers, Lactated IV 150 mls/hr ASDIRECTED CLAUDIO Administration Iopamidol 100 ml 02/09/21 22:45 02/09/21 23:10 Iopamidol 612 Mg/Ml 100 Ml Bottle IV 100 ml . DIRECTED CLAUDIO Administration Sodium Chloride 10 ml 02/09/21 20:57 Sodium Chloride 0.9% 10 Ml Syringe FLUSH ASDIRECTED PRN Keep Vein Open Discontinued Medications Generic Name Dose Route Start Last Admin Trade Name Salty PRN Reason Stop Dose Admin Hydromorphone HCl 0.5 mg 02/09/21 22:10 02/09/21 22:13 Hydromorphone 2 Mg/Ml Sdv IVPUSH 02/09/21 22:11 0.5 mg ONETIME ONE Administration Hydromorphone HCl Confirm 02/09/21 22:24 02/09/21 23:36 Hydromorphone 2 Mg/Ml Sdv Administered 02/09/21 22:25 Not Given Dose 2 mg .ROUTE .STK-MED ONE Morphine Sulfate 4 mg 02/09/21 20:57 02/09/21 21:08 Morphine 4 Mg/Ml Vial IVPUSH 02/09/21 20:58 4 mg ONETIME ONE Administration Morphine Sulfate Confirm 02/09/21 21:16 02/09/21 21:08 Morphine 4 Mg/Ml Vial Administered 02/09/21 21:17 Not Given Dose 4 mg .ROUTE .STK-MED ONE Ondansetron HCl 4 mg 02/09/21 20:52 02/09/21 21:08 Ondansetron 4 Mg Tab.Dis PO 02/09/21 20:53 4 mg ONETIME ONE Administration Ondansetron HCl Confirm 02/09/21 21:02 02/09/21 21:08 Ondansetron 4 Mg Tab.Dis Administered 02/09/21 21:03 Not Given Dose 4 mg .ROUTE .STK-MED ONE Sodium Chloride 50 ml 02/09/21 22:37 02/09/21 23:10 Sodium Chloride 0.9% 50 Ml Sdv FLUSH 02/09/21 22:38 50 ml ONETIME ONE Administration - Re-Assessments/Exams Free Text/Narrative Re-Assessment/Exam: vitals WNL EKG - sinus tachy, but no ischemic changes lsb - CBC, CMP - WNL. Trop mildly elevated which is chronic for him UA WNL COVID test was positive IVF was started CT abd/pelv w contrast - showed distended gall bladder with stones, no e/o surrounding inflammation. no SBP or free air. will admit to the floor for observation , pain control and trop trend. Departure - Departure Time of Disposition: 00:04 Disposition: Refer to Observation Condition: Fair Clinical Impression: Troponin level elevated, SARS-CoV-2 positive, Gall stones Abdominal pain Qualifiers: Abdominal location: right upper quadrant Qualified Code(s): R10.11 - Right upper quadrant pain - Discharge Information *PRESCRIPTION DRUG MONITORING PROGRAM REVIEWED*: Not Applicable *COPY OF PRESCRIPTION DRUG MONITORING REPORT IN PATIENT MORENO: Not Applicable Instructions: Cholelithiasis Referrals: PCP,Unknown [Primary Care Provider] - Forms: ED Department Discharge Sepsis Event Note (ED) - Focused Exam Vital Signs: Vital Signs Temp Pulse Resp BP Pulse Ox 02/09/21 23:31 36.6 C 86 16 146/80 H 93 L 02/09/21 22:22 37.2 C 92 18 149/81 H 93 L 02/09/21 20:54 36.7 C 100 18 157/88 H 94 L - Problem List & Annotations (1) Abdominal pain SNOMED Code(s): 89268068 Code(s): R10.9 - UNSPECIFIED ABDOMINAL PAIN Status: Acute Priority: Low Current Visit: Yes Qualifiers: Abdominal location: right upper quadrant Qualified Code(s): R10.11 - Right upper quadrant pain (2) Gall stones SNOMED Code(s): 928715831 Code(s): K80.20 - CALCULUS OF GALLBLADDER W/O CHOLECYSTITIS W/O OBSTRUCTION Status: Acute Priority: Medium Current Visit: Yes (3) SARS-CoV-2 positive SNOMED Code(s): 9891298501062610 Code(s): U07.1 - COVID-19 Status: Acute Priority: Low Current Visit: Yes (4) Troponin level elevated SNOMED Code(s): 533550810, 238295039, 148828972 Code(s): R77.8 - OTHER SPECIFIED ABNORMALITIES OF PLASMA PROTEINS Status: Acute Priority: Low Current Visit: Yes - Problem List Review Problem List Initiated/Reviewed/Updated: Yes - My Orders Last 24 Hours: My Active Orders 02/09/21 20:57 Sodium Chloride 0.9% [Saline Flush] 10 ml FLUSH ASDIRECTED PRN Saline Lock Insert [OM.PC] Routine 02/09/21 22:10 Abdomen Pelvis w Cont [CT] Stat 02/09/21 22:15 Lactated Ringers [Ringers, Lactated] 1,000 ml IV ASDIRECTED 02/09/21 22:45 Iopamidol [Isovue-300 (61%)] 100 ml IV . DIRECTED 02/10/21 00:02 Ketorolac [Toradol] 15 mg IVPUSH ONETIME ONE - Assessment/Plan Last 24 Hours: My Active Orders 02/09/21 20:57 Sodium Chloride 0.9% [Saline Flush] 10 ml FLUSH ASDIRECTED PRN Saline Lock Insert [OM.PC] Routine 02/09/21 22:10 Abdomen Pelvis w Cont [CT] Stat 02/09/21 22:15 Lactated Ringers [Ringers, Lactated] 1,000 ml IV ASDIRECTED 02/09/21 22:45 Iopamidol [Isovue-300 (61%)] 100 ml IV . DIRECTED 02/10/21 00:02 Ketorolac [Toradol] 15 mg IVPUSH ONETIME ONE Plan: - admit to observation - pain control - trop trend - repeat labs in the AM
[2021-02-09] MEDS ORDERED: Ondansetron 4 MG Tab.DIS ONE (21:02)
[2021-02-09] MEDS ORDERED: Morphine 4 MG/ML VIAL ONE (21:16)
[2021-02-09] MEDS ORDERED: HYDROmorphone 2 MG/ML SDV IVPUSH ONE (22:10)
[2021-02-09] MEDS: Lactated Ringers 1,000 ML IV SCH (22:19)
[2021-02-09] MEDS ORDERED: HYDROmorphone 2 MG/ML SDV ONE (22:24)
[2021-02-09] MEDS ORDERED: Sodium Chloride 0.9% 50 ML SDV FLUSH ONE (22:37)
[2021-02-09] MEDS ORDERED: Iopamidol 612 MG/ML 100 ML Bottle IV SCH (22:45)
[2021-02-10] MEDS ORDERED: Ketorolac 30 MG/ML SDV IVPUSH ONE (00:02)
[2021-02-10] MEDS ORDERED: Ketorolac 30 MG/ML SDV ONE ×2 (00:24→08:44)
[2021-02-10] MEDS ORDERED: HYDROmorphone 2 MG/ML SDV ONE ×2 (07:39→09:39)
[2021-02-10] MEDS: HYDROmorphone 2 MG/ML SDV IVPUSH PRN ×3 (07:45→21:00)
[2021-02-10] MEDS ORDERED: HYDROmorphone 4 MG/ML Syringe IVPUSH PRN (07:55)
--- NOTE | 2021-02-10 08:21 | CT ---
DATE OF SERVICE: 02/09/21 CLINICAL DATA: RUQ pain ENHANCED ABDOMEN AND PELVIC CT: Multislice acquisition through the abdomen and pelvis with IV, without oral contrast was performed. Comparison is made to a prior abdomen and pelvic CT dated 01/11/17. There are calcified nodules in both lung bases consistent with prior granulomatous disease. The lung bases are otherwise clear. The heart size is normal. There is calcification in the region of the aortic and mitral valves. No pericardial effusion. The liver is normal size with homogeneous attenuation. No focal hepatic lesions. The gallbladder is mildly distended. There are small gallstones in the dependent gallbladder. No gallbladder wall thickening. No pericholecystic fluid. No biliary duct dilatation. The spleen appears normal. The pancreas is mildly atrophic, otherwise unremarkable. The right and left adrenals appear normal. There is mild atrophy of both kidneys. They enhance symmetrically. No hydronephrosis or hydroureter. There is a small amount of fluid within the bladder. The bladder wall appears thickened. This is probably related to non-distension. Cystitis should be considered. No evidence of appendicitis. There is a moderate amount of stool present throughout the colon and rectum. No free air. No free fluid. No dilated loops of bowel. No adenopathy. No aortic aneurysm or dissection. There is a fat-containing umbilical hernia. There are bilateral fat-containing inguinal hernias. There is mild degenerative disc disease throughout the lower thoracic and lumbar spine. No other significant findings. [id number] [facility]
[2021-02-10] MEDS ORDERED: Ketorolac 60 MG/2 ML SDV IVPUSH ONE (08:51)
[2021-02-10] MEDS ORDERED: HYDROmorphone 2 MG/ML SDV IVPUSH ONE (09:42)
[2021-02-10] MEDS ORDERED: HYDROmorphone 2 MG/ML SDV IVPUSH STA (10:04)
[2021-02-10] MEDS ORDERED: Lactated Ringers 1,000 ML IV SCH (12:15)
[2021-02-10] MEDS: Lactated Ringers 1,000 ML IV SCH (12:46)
[2021-02-10] MEDS: Ciprofloxacin 500 MG Tab PO SCH ×2 (12:46→20:17)
[2021-02-10] MEDS: Acetaminophen/HYDROcodone 325-5 MG Tab PO PRN (21:06)
[2021-02-11] MEDS ORDERED: HYDROmorphone 2 MG/ML SDV IVPUSH ONE (00:33)
[2021-02-11] MEDS: Acetaminophen/HYDROcodone 325-5 MG Tab PO PRN ×2 (02:59→12:34)
[2021-02-11] MEDS: Ciprofloxacin 500 MG Tab PO SCH (08:52)
[2021-02-11] MEDS: Lactated Ringers 1,000 ML IV SCH (09:07)
[2021-02-11] MEDS ORDERED: Ketorolac 30 MG/ML SDV IVPUSH ONE (12:22)
--- NOTE | 2021-02-11 12:24 | PCM.HP.2 ---
H&P History of Present Illness - General Date of Service: 02/10/21 Admit Problem/Dx: Admission Diagnosis/Problem Admission Diagnosis/Problem Abdominal pain Source of Information: Patient History Limitations: Reports: No Limitations - History of Present Illness Initial Comments - Free Text/Narative: patient presented to he ER with a c/o RUQ pain for 2-3 hrs duration. Pain worse with deep breathing, associated with N/D and loss of appetite. No CP or SOB. no palpitations. Patient with a h/o obesity, HTN and CAD. CT abd/pelv showed dilated gall bladder with stones - possible biliary colicky pain. was admitted for pin control. Trop was found to be elevated. Chronic elevation seems to be the case. was trended down and is actually dropping. EKG no ischemic changes. Patient was resumed on home meds. Stable vitals. Right Lower Abdominal Pain Score (Numeric/FACES): 7 - Related Data Allergies/Adverse Reactions: Allergies Allergy/AdvReac Type Severity Reaction Status Date / Time No Known Allergies Allergy Verified 01/05/21 19:49 Home Medications: Home Meds Fluticasone/Salmeterol [Advair 250-50] 2 puff INH BID 05/03/13 [History] Furosemide 40 mg PO DAILY 05/03/13 [History] metFORMIN [Glucophage XR] 500 mg PO BIDM 02/08/14 [History] Docusate Sodium [Stool Softener] 250 mg PO DAILY 08/03/15 [History] Omeprazole 20 mg PO DAILY 08/03/15 [History] levETIRAcetam [Keppra] 500 mg PO BID 08/03/15 [History] Insulin Detemir [Levemir Flextouch] 36 unit SUBCUT BID 12/10/15 [History] methIMAzole [Methimazole] 15 mg PO DAILY 12/10/15 [History] Acetaminophen [Pain Reliever] 500 mg PO QID 04/20/17 [History] Isosorbide Mononitrate [Imdur] 30 mg PO DAILY 04/20/17 [History] lisinopriL [Lisinopril] 5 mg PO BEDTIME 08/25/19 [History] Cetirizine HCl 10 mg PO DAILY 03/25/20 [History] Gabapentin [Neurontin] 600 mg PO DAILY 03/25/20 [History] Nitroglycerin [Nitrostat] 0.4 mg SL ASDIRECTED 05/22/20 [History] Warfarin Sodium [Jantoven] 5 mg PO ASDIRECTED 05/22/20 [History] Cyanocobalamin (Vitamin B-12) [Vitamin B-12] 1,000 mcg PO DAILY 10/30/20 [History] DULoxetine HCl [Duloxetine HCl] 20 mg PO BID 10/30/20 [History] Ezetimibe 10 mg PO DAILY 10/30/20 [History] Ranolazine [Ranolazine ER] 1,000 mg PO BID 10/30/20 [History] Metoprolol Tartrate [Lopressor] 50 mg PO BID 02/10/21 [History] Acetaminophen/HYDROcodone [HYDROcodone-Acetaminophen 5-325 MG *] 1 tab PO Q4H PRN each 02/11/21 [Rx] Acetaminophen/HYDROcodone [HYDROcodone-Acetaminophen 5-325 MG *] 1 tab PO Q4H PRN #21 each 02/11/21 [Rx] Acetaminophen/HYDROcodone [HYDROcodone-Acetaminophen 5-325 MG *] 1 tab PO Q4H PRN #21 each 02/11/21 [Rx] Ciprofloxacin HCl [Cipro] 500 mg PO BID #8 tablet 02/11/21 [Rx] Ciprofloxacin [Ciprofloxacin HCl] 500 mg PO BID tablet 02/11/21 [Rx] Past Medical History - Past Health History Medical/Surgical History: Denies Medical/Surgical History HEENT History: Reports: Other (See Below) Other HEENT History: [place], states occasionally has trouble swallowing Cardiovascular History: Reports: Angina, Hypertension, VT, Stents Respiratory History: Reports: Asthma, Other (See Below) Other Respiratory History: hx of smoking and asthma Quit smoking 20 years ago Gastrointestinal History: Reports: Chronic Constipation, GERD Other Gastrointestinal History: Last BM 04/20/2016 Musculoskeletal History: Reports: Other (See Below) Other Musculoskeletal History: hx of meniscal tear, left knee pain, Hx bone too long in foot and had surgery summer. Between great toe and next on left foot, pt has left shoulder pain for the past 2 months Neurological History: Reports: CVA, Seizure Psychiatric History: Reports: Depression Endocrine/Metabolic History: Reports: Diabetes, Type II, Hyperthyroidism Dermatologic History: Reports: Other (See Below) Other Dermatologic History: Lower legs with dark pigmented color - Infectious Disease History Infectious Disease History: Reports: Measles - Past Surgical History Head Surgeries/Procedures: Reports: None Cardiovascular Surgical History: Reports: Coronary Artery Bypass, Coronary Artery Stent Respiratory Surgical History: Reports: None GI Surgical History: Reports: None Other Musculoskeletal Surgeries/Procedures:: presently has left neck pain Social & Family History - Family History Family Medical History: No Pertinent Family History - Caffeine Use Caffeine Use: Reports: None - Recreational Drug Use Recreational Drug Use: No H&P Review of Systems - Review of Systems: Review Of Systems: See Below General: Reports: No Symptoms HEENT: Reports: No Symptoms Pulmonary: Reports: No Symptoms Gastrointestinal: Reports: Abdominal Pain, Decreased Appetite Musculoskeletal: Reports: No Symptoms Skin: Reports: No Symptoms Psychiatric: Reports: No Symptoms Neurological: Reports: No Symptoms Exam - Exam Exam: See Below - Vital Signs Vital Signs: Last Vital Signs Temp 37.2 C 02/11/21 08:00 Pulse 100 02/11/21 08:00 Resp 16 02/11/21 08:00 BP 155/84 H 02/11/21 08:00 Pulse Ox 97 02/11/21 08:00 Weight: 152.861 kg - Exam General: Alert, Oriented, Cooperative HEENT: PERRLA Lungs: Clear to Auscultation Cardiovascular: Regular Rate, Regular Rhythm GI/Abdominal Exam: Soft, No Distention, Tender (RUQ) Extremities: Normal Inspection - Patient Data Lab Results Last 24 hrs: Laboratory Results - last 24 hr 02/10/21 Range/Units 07:30 Lipase 41 L (73-393) U/L Result Diagrams: 02/10/21 08:00 02/10/21 08:00 #1 Interpretation EKG Date: 02/10/21 Rhythm: NSR [place]: Normal P-Wave: Present QRS: Normal ST-T: Normal QT: Normal Comparison: No Change Sepsis Event Note - Evaluation Sepsis Screening Result: No Definite Risk - Focused Exam Vital Signs: Vital Signs Temp Pulse Resp BP Pulse Ox 02/11/21 08:00 37.2 C 100 16 155/84 H 97 02/11/21 03:51 36.8 C 95 20 155/70 H 97 02/11/21 00:29 36.6 C 94 20 152/82 H 94 L - Problem List (1) Abdominal pain SNOMED Code(s): 64616863 ICD Code: R10.9 - UNSPECIFIED ABDOMINAL PAIN Status: Acute Priority: Low Qualifiers: Abdominal location: right upper quadrant Qualified Code(s): R10.11 - Right upper quadrant pain (2) Gall stones SNOMED Code(s): 891431615 ICD Code: K80.20 - CALCULUS OF GALLBLADDER W/O CHOLECYSTITIS W/O OBSTRUCTION Status: Acute Priority: Medium (3) SARS-CoV-2 positive SNOMED Code(s): 1633737420143276 ICD Code: U07.1 - COVID-19 Status: Acute Priority: Low (4) Troponin level elevated SNOMED Code(s): 219430678, 346468362, 485694678 ICD Code: R77.8 - OTHER SPECIFIED ABNORMALITIES OF PLASMA PROTEINS Status: Acute Priority: Low Problem List Initiated/Reviewed/Updated: Yes Orders Last 24hrs: Active Orders 24 hr Category Date Time Status Acetaminophen/HYDROcodone [[place] 325-5 MG] Med 02/10/21 20:40 Active 1 tab PO Q4H PRN Ciprofloxacin [Ciprofloxacin HCl] Med 02/10/21 12:15 Active 500 mg PO BID Ketorolac [Toradol] Med 02/11/21 12:22 Once 15 mg IVPUSH ONETIME ONE Lactated Ringers [Ringers, Lactated] 1,000 ml Med 02/10/21 12:15 Active IV ASDIRECTED Medication Orders Hydrocodone Bitart/Acetaminophen (Acetaminophen/Hydrocodone 325-5 Mg Tab) 1 tab PO Q4H PRN PRN Reason: Abdominal Pain Last Admin: 02/11/21 02:59 Dose: 1 tab Documented by: Admin: 02/10/21 21:06 Dose: 1 tab Documented by: SAHIL Ciprofloxacin (Ciprofloxacin 500 Mg Tab) 500 mg PO BID CLAUDIO Last Admin: 02/11/21 08:52 Dose: 500 mg Documented by: Admin: 02/10/21 20:17 Dose: 500 mg Documented by: Admin: 02/10/21 12:46 Dose: 500 mg Documented by: TATO Hydromorphone HCl (Hydromorphone 2 Mg/Ml Sdv) 0.5 mg IVPUSH Q6H PRN PRN Reason: PAIN Last Admin: 02/10/21 21:00 Dose: 0.5 mg Documented by: Admin: 02/10/21 17:50 Dose: 0.5 mg Documented by: Admin: 02/10/21 07:45 Dose: 0.5 mg Documented by: EBONY Lactated Ringer's (Ringers, Lactated) 1,000 mls @ 150 mls/hr IV ASDIRECTED [facility] Last Admin: 02/11/21 09:07 Dose: 100 mls/hr Documented by: Infusion: 02/10/21 21:00 Dose: 100 mls/hr Documented by: Admin: 02/10/21 12:46 Dose: 150 mls/hr Documented by: Infusion: 02/10/21 05:00 Dose: 150 mls/hr Documented by: Admin: 02/09/21 22:19 Dose: 150 mls/hr Documented by: SAHIL Lactated Ringer's (Ringers, Lactated) 1,000 mls @ 150 mls/hr IV ASDIRECTED [facility] Last Admin: 02/10/21 21:00 Dose: 150 mls/hr Documented by: SAHIL Iopamidol (Iopamidol 612 Mg/Ml 100 Ml Bottle) 100 ml IV . DIRECTED [facility] Last Admin: 02/09/21 23:10 Dose: 100 ml Documented by: LATASHA Ketorolac Tromethamine (Ketorolac 60 Mg/2 Ml Sdv) 15 mg IVPUSH ONETIME ONE Stop: 02/11/21 12:23 Sodium Chloride (Sodium Chloride 0.9% 10 Ml Syringe) 10 ml FLUSH ASDIRECTED PRN PRN Reason: Keep Vein Open Assessment/Plan Comment:: 1- abdominal pain: most likely biliary colic. normal CMP and liver enzymes. no leukocytosis. Requiring IV pain meds - Dilaudid 0.5mg IV NPO IVF 2- chronic anticoagulation therapy on Coumadin 3- h/o HTN: resume home meds will continue pain management and will d/c home once pain controlled with PO pain meds. - Mortality Measure Prognosis:: Good
[2021-02-11] MEDS ORDERED: Ondansetron 4 MG/2 ML SDV ONE (12:25)
[2021-02-11] MEDS ORDERED: Ondansetron 4 MG/2 ML SDV IVPUSH PRN (12:33)
--- NOTE | 2021-02-11 17:11 | PCM.DCSUM1 ---
Discharge Summary - Hospital Course HPI Initial Comments: patient presented to the ER with a c/o RUQ pain. Labs - no leukocytosis, but CT showed distended gall bladder with stones, no evidence of cholecystitis. He was admitted for pain management. Required multiple doses of IV narcotics. Patient has been NPO since admission. Diagnosis: Stroke: No - Discharge Data Discharge Date: 02/11/21 Discharge Disposition: Home, Self-Care 01 Condition: Good - Referral to Home Health Primary Care Physician: PCP None - Discharge Diagnosis/Problem(s) (1) Abdominal pain SNOMED Code(s): 06196218 ICD Code: R10.9 - UNSPECIFIED ABDOMINAL PAIN Status: Acute Priority: Low Qualifiers: Abdominal location: right upper quadrant Qualified Code(s): R10.11 - Right upper quadrant pain (2) Gall stones SNOMED Code(s): 880623481 ICD Code: K80.20 - CALCULUS OF GALLBLADDER W/O CHOLECYSTITIS W/O OBSTRUCTION Status: Acute Priority: Medium (3) SARS-CoV-2 positive SNOMED Code(s): 6789616412578930 ICD Code: U07.1 - COVID-19 Status: Acute Priority: Low (4) Troponin level elevated SNOMED Code(s): 525434764, 992174743, 595804472 ICD Code: R77.8 - OTHER SPECIFIED ABNORMALITIES OF PLASMA PROTEINS Status: Acute Priority: Low - Patient Summary/Data Hospital Course: patient was placed NPO pain control with IV morphine and Toradol PRN. IVF was given. given the concerns for a possible underlying infection - cipro PO was started BID. Labs no concerns. Trop is chronically elevated and actually trending down. No ischemic changes on EKG On end of day 2 - patient pain is much tolerable, and tolerating Po intake - will d/c home on oral pain meds and plan to f/u with PCP next week to be referred to general surgery for lap wilian - Patient Instructions Diet: Heart Healthy Diet, Clear Liquid Diet - Discharge Plan *PRESCRIPTION DRUG MONITORING PROGRAM REVIEWED*: Not Applicable *COPY OF PRESCRIPTION DRUG MONITORING REPORT IN PATIENT MORENO: Not Applicable Prescriptions/Med Rec: Ciprofloxacin HCl [Cipro] 500 mg PO BID #8 tablet Acetaminophen/HYDROcodone [HYDROcodone-Acetaminophen 5-325 MG *] 1 tab PO Q4H PRN #21 each PRN Reason: Pain (Moderate 4-6) Acetaminophen/HYDROcodone [HYDROcodone-Acetaminophen 5-325 MG *] 1 tab PO Q4H PRN #21 each PRN Reason: Pain Home Medications: Home Meds Fluticasone/Salmeterol [Advair 250-50] 2 puff INH BID 05/03/13 [History] Furosemide 40 mg PO DAILY 05/03/13 [History] metFORMIN [Glucophage XR] 500 mg PO BIDM 02/08/14 [History] Docusate Sodium [Stool Softener] 250 mg PO DAILY 08/03/15 [History] Omeprazole 20 mg PO DAILY 08/03/15 [History] levETIRAcetam [Keppra] 500 mg PO BID 08/03/15 [History] Insulin Detemir [Levemir Flextouch] 36 unit SUBCUT BID 12/10/15 [History] methIMAzole [Methimazole] 15 mg PO DAILY 12/10/15 [History] Acetaminophen [Pain Reliever] 500 mg PO QID 04/20/17 [History] Isosorbide Mononitrate [Imdur] 30 mg PO DAILY 04/20/17 [History] lisinopriL [Lisinopril] 5 mg PO BEDTIME 08/25/19 [History] Cetirizine HCl 10 mg PO DAILY 03/25/20 [History] Gabapentin [Neurontin] 600 mg PO DAILY 03/25/20 [History] Nitroglycerin [Nitrostat] 0.4 mg SL ASDIRECTED 05/22/20 [History] Warfarin Sodium [Jantoven] 5 mg PO ASDIRECTED 05/22/20 [History] Cyanocobalamin (Vitamin B-12) [Vitamin B-12] 1,000 mcg PO DAILY 10/30/20 [History] DULoxetine HCl [Duloxetine HCl] 20 mg PO BID 10/30/20 [History] Ezetimibe 10 mg PO DAILY 10/30/20 [History] Ranolazine [Ranolazine ER] 1,000 mg PO BID 10/30/20 [History] Metoprolol Tartrate [Lopressor] 50 mg PO BID 02/10/21 [History] Acetaminophen/HYDROcodone [HYDROcodone-Acetaminophen 5-325 MG *] 1 tab PO Q4H PRN each 02/11/21 [Rx] Acetaminophen/HYDROcodone [HYDROcodone-Acetaminophen 5-325 MG *] 1 tab PO Q4H PRN #21 each 02/11/21 [Rx] Acetaminophen/HYDROcodone [HYDROcodone-Acetaminophen 5-325 MG *] 1 tab PO Q4H PRN #21 each 02/11/21 [Rx] Ciprofloxacin HCl [Cipro] 500 mg PO BID #8 tablet 02/11/21 [Rx] Ciprofloxacin [Ciprofloxacin HCl] 500 mg PO BID tablet 02/11/21 [Rx] Patient Handouts: Cholelithiasis Forms: ED Department Discharge Referrals: PCP,Unknown [Ordering Only Provider] - - Discharge Summary/Plan Comment DC Time >30 min.: Yes Total # of Minutes for Discharge Time: 40 - General Info Date of Service: 02/12/21 Admission Dx/Problem (Free Text: Admission Diagnosis/Problem Admission Diagnosis/Problem Abdominal pain Functional Status: Reports: Pain Controlled, Tolerating Diet - Review of Systems General: Reports: No Symptoms HEENT: Reports: No Symptoms Pulmonary: Reports: No Symptoms Cardiovascular: Reports: No Symptoms Gastrointestinal: Reports: No Symptoms Musculoskeletal: Reports: No Symptoms Neurological: Reports: No Symptoms - Patient Data Vitals - Most Recent: Last Vital Signs Temp 37.1 C 02/11/21 12:00 Pulse 92 02/11/21 12:00 Resp 16 02/11/21 12:00 BP 131/66 02/11/21 12:00 Pulse Ox 97 02/11/21 12:00 Weight - Most Recent: 152.861 kg I&O - Last 24 hours: Intake & Output 02/11/21 02/11/21 02/11/21 06:59 14:59 22:59 Intake Total 100 Output Total 250 Balance -150 Med Orders - Current: Current Medications Hydrocodone Bitart/Acetaminophen (Acetaminophen/Hydrocodone 325-5 Mg Tab) 1 tab PO Q4H PRN PRN Reason: Abdominal Pain Last Admin: 02/11/21 12:34 Dose: 1 tab Documented by: Ciprofloxacin (Ciprofloxacin 500 Mg Tab) 500 mg PO BID CLAUDIO Last Admin: 02/11/21 08:52 Dose: 500 mg Documented by: Hydromorphone HCl (Hydromorphone 2 Mg/Ml Sdv) 0.5 mg IVPUSH Q6H PRN PRN Reason: PAIN Last Admin: 02/10/21 21:00 Dose: 0.5 mg Documented by: Lactated Ringer's (Ringers, Lactated) 1,000 mls @ 150 mls/hr IV ASDIRECTED [facility] Last Admin: 02/11/21 09:07 Dose: 100 mls/hr Documented by: Lactated Ringer's (Ringers, Lactated) 1,000 mls @ 150 mls/hr IV ASDIRECTED [facility] Last Admin: 02/10/21 21:00 Dose: 150 mls/hr Documented by: Iopamidol (Iopamidol 612 Mg/Ml 100 Ml Bottle) 100 ml IV . DIRECTED [facility] Last Admin: 02/09/21 23:10 Dose: 100 ml Documented by: Ondansetron HCl (Ondansetron 4 Mg/2 Ml Sdv) 4 mg IVPUSH Q4H PRN PRN Reason: Nausea/Vomiting Last Admin: 02/11/21 12:43 Dose: 4 mg Documented by: Sodium Chloride (Sodium Chloride 0.9% 10 Ml Syringe) 10 ml FLUSH ASDIRECTED PRN PRN Reason: Keep Vein Open Discontinued Medications Hydromorphone HCl (Hydromorphone 2 Mg/Ml Sdv) 0.5 mg IVPUSH ONETIME ONE Stop: 02/09/21 22:11 Last Admin: 02/09/21 22:13 Dose: 0.5 mg Documented by: Hydromorphone HCl (Hydromorphone 2 Mg/Ml Sdv) Confirm Administered Dose 2 mg .ROUTE .STK-MED ONE Stop: 02/09/21 22:25 Last Admin: 02/09/21 23:36 Dose: Not Given Documented by: Hydromorphone HCl (Hydromorphone 2 Mg/Ml Sdv) Confirm Administered Dose 2 mg .ROUTE .STK-MED ONE Stop: 02/10/21 07:40 Last Admin: 02/10/21 08:53 Dose: Not Given Documented by: Hydromorphone HCl (Hydromorphone 2 Mg/Ml Sdv) Confirm Administered Dose 2 mg .ROUTE .STK-MED ONE Stop: 02/10/21 09:40 Last Admin: 02/10/21 10:06 Dose: Not Given Documented by: Hydromorphone HCl (Hydromorphone 2 Mg/Ml Sdv) 0.5 mg IVPUSH ONETIME ONE Stop: 02/10/21 09:43 Last Admin: 02/10/21 09:40 Dose: 0.5 mg Documented by: Hydromorphone HCl (Hydromorphone 2 Mg/Ml Sdv) 0.5 mg IVPUSH ONETIME STA Stop: 02/10/21 10:05 Last Admin: 02/10/21 12:44 Dose: Not Given Documented by: Hydromorphone HCl (Hydromorphone 2 Mg/Ml Sdv) 0.5 mg IVPUSH ONETIME ONE Stop: 02/11/21 00:34 Last Admin: 02/11/21 00:51 Dose: 0.5 mg Documented by: Ketorolac Tromethamine (Ketorolac 30 Mg/Ml Sdv) 15 mg IVPUSH ONETIME ONE Stop: 02/10/21 00:03 Last Admin: 02/10/21 00:14 Dose: 15 mg Documented by: Ketorolac Tromethamine (Ketorolac 30 Mg/Ml Sdv) Confirm Administered Dose 30 mg .ROUTE .STK-MED ONE Stop: 02/10/21 00:25 Last Admin: 02/10/21 02:12 Dose: Not Given Documented by: Ketorolac Tromethamine (Ketorolac 30 Mg/Ml Sdv) Confirm Administered Dose 30 mg .ROUTE .STK-MED ONE Stop: 02/10/21 08:45 Last Admin: 02/10/21 08:53 Dose: Not Given Documented by: Ketorolac Tromethamine (Ketorolac 60 Mg/2 Ml Sdv) 15 mg IVPUSH ONETIME ONE Stop: 02/10/21 08:52 Last Admin: 02/10/21 08:45 Dose: 15 mg Documented by: Ketorolac Tromethamine (Ketorolac 30 Mg/Ml Sdv) 15 mg IVPUSH ONETIME ONE Stop: 02/11/21 12:23 Last Admin: 02/11/21 12:39 Dose: 15 mg Documented by: Morphine Sulfate (Morphine 4 Mg/Ml Vial) 4 mg IVPUSH ONETIME ONE Stop: 02/09/21 20:58 Last Admin: 02/09/21 21:08 Dose: 4 mg Documented by: Morphine Sulfate (Morphine 4 Mg/Ml Vial) Confirm Administered Dose 4 mg .ROUTE .STK-MED ONE Stop: 02/09/21 21:17 Last Admin: 02/09/21 21:08 Dose: Not Given Documented by: Ondansetron HCl (Ondansetron 4 Mg Tab.Dis) 4 mg PO ONETIME ONE Stop: 02/09/21 20:53 Last Admin: 02/09/21 21:08 Dose: 4 mg Documented by: Ondansetron HCl (Ondansetron 4 Mg Tab.Dis) Confirm Administered Dose 4 mg .ROUTE .STK-MED ONE Stop: 02/09/21 21:03 Last Admin: 02/09/21 21:08 Dose: Not Given Documented by: Ondansetron HCl (Ondansetron 4 Mg/2 Ml Sdv) Confirm Administered Dose 4 mg .ROUTE .STK-MED ONE Stop: 02/11/21 12:26 Last Admin: 02/11/21 14:34 Dose: Not Given Documented by: Sodium Chloride (Sodium Chloride 0.9% 50 Ml Sdv) 50 ml FLUSH ONETIME ONE Stop: 02/09/21 22:38 Last Admin: 02/09/21 23:10 Dose: 50 ml Documented by: - Exam General: Reports: Alert, Oriented HEENT: Reports: Pupils Equal Lungs: Reports: Clear to Auscultation, Normal Respiratory Effort Cardiovascular: Reports: Regular Rate, Regular Rhythm GI/Abdominal Exam: Normal Bowel Sounds, Tender (RUQ) (Male) Exam: Hernia (umbilical) Extremities: Normal Inspection Neurological: Reports: No New Focal Deficit
[2021-02-11 17:37] VITALS: BP 120/66; PULSE 88
== END 2021-02-11 17:41 | disposition home or self-care (01) ==
LOC: LB.ED 20:16 → LB.MS 02-10 00:07
PROVIDERS: ADMIT Surgery; ATTEND Surgery
DX: K80.20 Calculus of gallbladder without cholecystitis without obstruction (principal); U07.1 COVID-19; R63.0 Anorexia; I25.10 Atherosclerotic heart disease of native coronary artery without angina pectoris; I10 Essential (primary) hypertension; E66.9 Obesity, unspecified; K21.9 Gastro-esophageal reflux disease without esophagitis; E11.9 Type 2 diabetes mellitus without complications; E05.90 Thyrotoxicosis, unspecified without thyrotoxic crisis or storm; Z95.5 Presence of coronary angioplasty implant and graft; Z79.899 Other long term (current) drug therapy; Z87.891 Personal history of nicotine dependence; Z79.4 Long term (current) use of insulin; Z79.84 Long term (current) use of oral hypoglycemic drugs; Z79.01 Long term (current) use of anticoagulants
CPT/HCPCS: 36415; 74177; 80048; 80053; 81003; 83690; 84484; 85027; 85651; 86140; 93005; 96374; 96375; 99285; A9270; J1170; J1885; J2270; J2405; J7120; Q9967; U0002; 99217; 99218

== ENCOUNTER 2021-02-13 11:10 | Emergency (ER) | payer MEDICARE ==
[2021-02-13] MEDS: Acetaminophen/HYDROcodone 325-10 MG Tab PO ONE (13:31)
--- NOTE | 2021-02-13 13:32 | EDM.PDOC ---
ED HPI GENERAL MEDICAL PROBLEM - General Chief Complaint: General Stated Complaint: abd pain Time Seen by Provider: 02/13/21 11:15 Source of Information: Reports: Patient History Limitations: Reports: No Limitations - History of Present Illness INITIAL COMMENTS - FREE TEXT/NARRATIVE: patient with a h/o gall bladder stones presented to the ER with a c/o biliary colicky pain. No f/v. no N/V/D. Patient was d/cd from the hospital yesterday after a 2 days admission for pain control. He was sent home on Hydrocodone for pain control, but apparently he didn't take them before coming to the ER. No jaundice. No urinary symptoms. Patient was also sent home on Cipro Po beside hydrocodone. Location: Reports: Abdomen Quality: Reports: Stabbing Severity: Moderate Improves with: Reports: Medication - Related Data Allergies Allergy/AdvReac Type Severity Reaction Status Date / Time No Known Allergies Allergy Verified 02/14/21 05:42 Home Meds: Home Meds Fluticasone/Salmeterol [Advair 250-50] 2 puff INH BID 05/03/13 [History] Furosemide 40 mg PO DAILY 05/03/13 [History] metFORMIN [Glucophage XR] 500 mg PO BIDM 02/08/14 [History] Docusate Sodium [Stool Softener] 250 mg PO DAILY 08/03/15 [History] Omeprazole 20 mg PO DAILY 08/03/15 [History] levETIRAcetam [Keppra] 500 mg PO BID 08/03/15 [History] Insulin Detemir [Levemir Flextouch] 36 unit SUBCUT BID 12/10/15 [History] methIMAzole [Methimazole] 15 mg PO DAILY 12/10/15 [History] Acetaminophen [Pain Reliever] 500 mg PO QID 04/20/17 [History] Isosorbide Mononitrate [Imdur] 30 mg PO DAILY 04/20/17 [History] lisinopriL [Lisinopril] 5 mg PO BEDTIME 08/25/19 [History] Cetirizine HCl 10 mg PO DAILY 03/25/20 [History] Gabapentin [Neurontin] 600 mg PO DAILY 03/25/20 [History] Nitroglycerin [Nitrostat] 0.4 mg SL ASDIRECTED 05/22/20 [History] Warfarin Sodium [Jantoven] 5 mg PO ASDIRECTED 05/22/20 [History] Cyanocobalamin (Vitamin B-12) [Vitamin B-12] 1,000 mcg PO DAILY 10/30/20 [History] DULoxetine HCl [Duloxetine HCl] 20 mg PO BID 10/30/20 [History] Ezetimibe 10 mg PO DAILY 10/30/20 [History] Ranolazine [Ranolazine ER] 1,000 mg PO BID 10/30/20 [History] Metoprolol Tartrate [Lopressor] 50 mg PO BID 02/10/21 [History] Acetaminophen/HYDROcodone [HYDROcodone-Acetaminophen 5-325 MG *] 1 tab PO Q4H PRN each 02/11/21 [Rx] Acetaminophen/HYDROcodone [HYDROcodone-Acetaminophen 5-325 MG *] 1 tab PO Q4H PRN #21 each 02/11/21 [Rx] Acetaminophen/HYDROcodone [HYDROcodone-Acetaminophen 5-325 MG *] 1 tab PO Q4H PRN #21 each 02/11/21 [Rx] Ciprofloxacin HCl [Cipro] 500 mg PO BID #8 tablet 02/11/21 [Rx] Ciprofloxacin [Ciprofloxacin HCl] 500 mg PO BID tablet 02/11/21 [Rx] Past Medical History - Past Health History Medical/Surgical History: Denies Medical/Surgical History HEENT History: Reports: Other (See Below) Other HEENT History: [place], states occasionally has trouble swallowing Cardiovascular History: Reports: Angina, Hypertension, [place], Stents Respiratory History: Reports: Asthma, Other (See Below) Other Respiratory History: hx of smoking and asthma Quit smoking 20 years ago Gastrointestinal History: Reports: Chronic Constipation, GERD Other Gastrointestinal History: Last BM 04/20/2016 Musculoskeletal History: Reports: Other (See Below) Other Musculoskeletal History: hx of meniscal tear, left knee pain, Hx bone too long in foot and had surgery summer. Between great toe and next on left foot, pt has left shoulder pain for the past 2 months Neurological History: Reports: CVA, Seizure Psychiatric History: Reports: Depression Endocrine/Metabolic History: Reports: Diabetes, Type II, Hyperthyroidism Dermatologic History: Reports: Other (See Below) Other Dermatologic History: Lower legs with dark pigmented color - Infectious Disease History Infectious Disease History: Reports: Measles - Past Surgical History Head Surgeries/Procedures: Reports: None Cardiovascular Surgical History: Reports: Coronary Artery Bypass, Coronary Artery Stent Respiratory Surgical History: Reports: None GI Surgical History: Reports: None Other Musculoskeletal Surgeries/Procedures:: presently has left neck pain Social & Family History - Family History Family Medical History: No Pertinent Family History - Tobacco Use Tobacco Use Status *Q: Former Tobacco User Used Tobacco, but Quit: Yes Month/Year Tobacco Last Used: 04/17/1997 - Caffeine Use Caffeine Use: Reports: None ED ROS GENERAL - Review of Systems Review Of Systems: See Below Constitutional: Denies: Fever, Chills HEENT: Reports: No Symptoms Respiratory: Denies: Shortness of Breath Cardiovascular: Denies: Chest Pain GI/Abdominal: Reports: Abdominal Pain, Decreased Appetite Musculoskeletal: Reports: No Symptoms Skin: Reports: No Symptoms ED EXAM, GENERAL - Physical Exam Exam: See Below Exam Limited By: No Limitations General Appearance: Alert, WD/WN, No Apparent Distress Eye Exam: Bilateral Eye: EOMI Head: Atraumatic Respiratory/Chest: No Respiratory Distress Cardiovascular: Regular Rate, Rhythm GI/Abdominal: Soft, No Distention, Tender (mild RUQ) Neurological: Alert, Oriented Course - Vital Signs Last Recorded V/S: Last Vital Signs Temp 36.9 C 02/13/21 16:12 Pulse 83 02/13/21 16:12 Resp 18 02/13/21 16:12 BP 146/68 H 02/13/21 16:12 Pulse Ox 96 02/13/21 16:12 - Orders/Labs/Meds Labs: Laboratory Tests 02/13/21 02/13/21 02/13/21 Range/Units 11:14 12:00 13:25 WBC 2.9 L D (4.0-11.0) K/uL RBC 4.48 L (4.50-6.50) M/uL Hgb 11.1 L (13.0-18.0) g/dL Hct 34.2 L (40.0-54.0) % MCV 76 (76-96) fL MCH 24.8 L (27.0-32.0) pg MCHC 32.5 (31.0-35.0) g/dL RDW 18.7 H (11.0-16.0) % Plt Count 118 L (150-400) K/uL MPV 8.6 (6.0-10.0) fL Sodium 138 (136-145) mmol/L Potassium 3.8 (3.5-5.1) mmol/L Chloride 104 (98-107) mmol/L Carbon Dioxide 25.1 (21.0-32.0) mmol/L Anion Gap 12.7 (5.0-15.0) mmol/L BUN 14 (8-26) mg/dL Creatinine 1.05 (0.70-1.30) mg/dL Est Cr Clr Drug Dosing TNP Estimated GFR (MDRD) > 60 (>60) MLS/MIN BUN/Creatinine Ratio 13.3 (6-25) Glucose 117 H (74-100) mg/dL Calcium 8.4 L (8.5-10.1) mg/dL Total Bilirubin 0.4 (0.0-1.0) mg/dL AST 20 (15-37) U/L ALT 21 (12-78) U/L Alkaline Phosphatase 71 (46-116) U/L Total Protein 6.6 (6.4-8.2) g/dL Albumin 2.9 L (3.4-5.0) g/dL Globulin 3.7 (2.2-4.2) g/dL Albumin/Globulin Ratio 0.8 (0.8-2.0) Lipase 58 L D (73-393) U/L Urine Color Yellow Urine Appearance Clear (CLEAR) Urine pH 5.5 (5.0-8.0) Ur Specific [place] >= 1.030 (1.003-1.030) Urine Protein 30 H (NEGATIVE) mg/dL Urine Glucose (UA) Negative (NEGATIVE) mg/dL Urine Ketones 80 H (NEGATIVE) mg/dL Urine Occult Blood Negative (NEGATIVE) Urine Nitrite Negative (NEGATIVE) Urine Bilirubin Moderate H (NEGATIVE) Urine Urobilinogen 1.0 (0.2-1.0) E.U./dL Ur Leukocyte Esterase Negative (NEGATIVE) U Hyaline Cast (Auto) Few /HPF Urine RBC Not Reportable Urine WBC 0-5 H /HPF Urine Bacteria Few /HPF Coarse Granular Casts Rare /HPF Urine Mucus Moderate /HPF Meds: Medications Discontinued Medications Generic Name Dose Route Start Last Admin Trade Name Freq PRN Reason Stop Dose Admin Hydrocodone Bitart/Acetaminophen 1 tab 02/13/21 12:48 02/13/21 13:31 Acetaminophen/Hydrocodone 325-10 Mg Tab PO 10/30/21 12:49 1 tab ONETIME ONE Administration CASIRIVIMAB/IMDEVIMAB 10 ml/ 110 mls @ 220 mls/hr 02/13/21 15:00 02/13/21 15:11 Sodium Chloride IV 02/13/21 15:29 220 mls/hr ONETIME ONE Administration - Re-Assessments/Exams Free Text/Narrative Re-Assessment/Exam: labs - CBC, CMP, lipase and UA - no leukocytosis and normal lipase and LFTs. was given PO hydrocodone - which helped with the pain. He was also given Regeneron IV as a MonoClonal Abx for COVID given his +ve test from 2 days ago and high BMI and qualifying comorbidities. patient felt good to be d/cd home Departure - Departure Time of Disposition: 17:30 Disposition: Home, Self-Care 01 Condition: Good Clinical Impression: SARS-CoV-2 positive, Biliary colic Abdominal pain Qualifiers: Abdominal location: right upper quadrant Qualified Code(s): R10.11 - Right upper quadrant pain - Discharge Information *PRESCRIPTION DRUG MONITORING PROGRAM REVIEWED*: Not Applicable *COPY OF PRESCRIPTION DRUG MONITORING REPORT IN PATIENT MORENO: Not Applicable Instructions: 10 Things You Can Do to Manage Your COVID-19 Symptoms at Home - [facility] (10/30/2020), Gallbladder Eating Plan Referrals: PCP,None [Primary Care Provider] - Forms: ED Department Discharge Care Plan Goals: Follow up with your primary care doctor next week. Take your pain medications as directed for abd pain. Avoid fatty foods. - Problem List & Annotations (1) Abdominal pain SNOMED Code(s): 71000233 Code(s): R10.9 - UNSPECIFIED ABDOMINAL PAIN Status: Acute Priority: Low Qualifiers: Abdominal location: right upper quadrant Qualified Code(s): R10.11 - Right upper quadrant pain (2) Biliary colic SNOMED Code(s): 29254597 Code(s): K80.50 - CALCULUS OF BILE DUCT W/O CHOLANGITIS OR CHOLECYST W/O OBST Status: Acute (3) SARS-CoV-2 positive SNOMED Code(s): 1258020355714846 Code(s): U07.1 - COVID-19 Status: Acute Priority: Low - Problem List Review Problem List Initiated/Reviewed/Updated: Yes - Assessment/Plan Plan: continue with pain medications and Abx as prescribed follow up with your PCP and surgeon in 1-2 weeks to discuss surgery to remove your gall bladder - call to make an appointment
[2021-02-13 16:13] VITALS: BP 146/68; PULSE 83
== END 2021-02-13 16:32 | disposition home or self-care (01) ==
LOC: LB.ED 11:10
DX: K80.50 Calculus of bile duct without cholangitis or cholecystitis without obstruction (principal); U07.1 COVID-19; I25.2 Old myocardial infarction; I10 Essential (primary) hypertension; E11.9 Type 2 diabetes mellitus without complications; K21.9 Gastro-esophageal reflux disease without esophagitis; Z86.73 Personal history of transient ischemic attack (TIA), and cerebral infarction without residual deficits; Z87.891 Personal history of nicotine dependence; Z95.1 Presence of aortocoronary bypass graft; Z79.4 Long term (current) use of insulin; Z79.01 Long term (current) use of anticoagulants; Z79.899 Other long term (current) drug therapy
CPT/HCPCS: 36415; 80053; 81001; 83690; 85027; 99284-25; A9270-GY; M0243; Q0243

== ENCOUNTER 2021-02-14 01:01 | Emergency (ER) | payer MEDICARE ==
[2021-02-14 01:31] VITALS: BP 124/72; PULSE 93
[2021-02-14] MEDS ORDERED: Sodium Chloride 0.9% 10 ML Syringe FLUSH PRN (01:46)
--- NOTE | 2021-02-14 01:50 | EDM.PDOC ---
ED HPI GENERAL MEDICAL PROBLEM - General Chief Complaint: Abdominal Pain Stated Complaint: abd pain Time Seen by Provider: 02/14/21 01:30 Source of Information: Reports: Patient History Limitations: Reports: No Limitations - History of Present Illness INITIAL COMMENTS - FREE TEXT/NARRATIVE: patient with a h/o gall bladder stones presented to the ER with a c/o recurrent biliary colicky pain. he tried some hydrocodone at home but didn't help. No f/v. no N/V/D. Patient was d/cd from the hospital yesterday after a 2 days admission for pain control. He was sent home on Hydrocodone for pain control, but apparently he didn't take them before coming to the ER. he was also seen earlier in the ER for the same reason, but he didnt use his pain meds at that time. No jaundice. No urinary symptoms. Patient was also sent home on Cipro Po beside hydrocodone. - Related Data Allergies Allergy/AdvReac Type Severity Reaction Status Date / Time No Known Allergies Allergy Verified 02/14/21 05:42 Home Meds: Home Meds Fluticasone/Salmeterol [Advair 250-50] 2 puff INH BID 05/03/13 [History] Furosemide 40 mg PO DAILY 05/03/13 [History] metFORMIN [Glucophage XR] 500 mg PO BIDM 02/08/14 [History] Docusate Sodium [Stool Softener] 250 mg PO DAILY 08/03/15 [History] Omeprazole 20 mg PO DAILY 08/03/15 [History] levETIRAcetam [Keppra] 500 mg PO BID 08/03/15 [History] Insulin Detemir [Levemir Flextouch] 36 unit SUBCUT BID 12/10/15 [History] methIMAzole [Methimazole] 15 mg PO DAILY 12/10/15 [History] Acetaminophen [Pain Reliever] 500 mg PO QID 04/20/17 [History] Isosorbide Mononitrate [Imdur] 30 mg PO DAILY 04/20/17 [History] lisinopriL [Lisinopril] 5 mg PO BEDTIME 08/25/19 [History] Cetirizine HCl 10 mg PO DAILY 03/25/20 [History] Gabapentin [Neurontin] 600 mg PO DAILY 03/25/20 [History] Nitroglycerin [Nitrostat] 0.4 mg SL ASDIRECTED 05/22/20 [History] Warfarin Sodium [Jantoven] 5 mg PO ASDIRECTED 05/22/20 [History] Cyanocobalamin (Vitamin B-12) [Vitamin B-12] 1,000 mcg PO DAILY 10/30/20 [History] DULoxetine HCl [Duloxetine HCl] 20 mg PO BID 10/30/20 [History] Ezetimibe 10 mg PO DAILY 10/30/20 [History] Ranolazine [Ranolazine ER] 1,000 mg PO BID 10/30/20 [History] Metoprolol Tartrate [Lopressor] 50 mg PO BID 02/10/21 [History] Acetaminophen/HYDROcodone [HYDROcodone-Acetaminophen 5-325 MG *] 1 tab PO Q4H PRN each 02/11/21 [Rx] Acetaminophen/HYDROcodone [HYDROcodone-Acetaminophen 5-325 MG *] 1 tab PO Q4H PRN #21 each 02/11/21 [Rx] Acetaminophen/HYDROcodone [HYDROcodone-Acetaminophen 5-325 MG *] 1 tab PO Q4H PRN #21 each 02/11/21 [Rx] Ciprofloxacin HCl [Cipro] 500 mg PO BID #8 tablet 02/11/21 [Rx] Ciprofloxacin [Ciprofloxacin HCl] 500 mg PO BID tablet 02/11/21 [Rx] Past Medical History - Past Health History Medical/Surgical History: Denies Medical/Surgical History HEENT History: Reports: Other (See Below) Other HEENT History: [place], states occasionally has trouble swallowing Cardiovascular History: Reports: Angina, Hypertension, [place], Stents Respiratory History: Reports: Asthma, Other (See Below) Other Respiratory History: hx of smoking and asthma Quit smoking 20 years ago Gastrointestinal History: Reports: Chronic Constipation, GERD Other Gastrointestinal History: Last BM 04/20/2016 Musculoskeletal History: Reports: Other (See Below) Other Musculoskeletal History: hx of meniscal tear, left knee pain, Hx bone too long in foot and had surgery summer. Between great toe and next on left foot, pt has left shoulder pain for the past 2 months Neurological History: Reports: CVA, Seizure Psychiatric History: Reports: Depression Endocrine/Metabolic History: Reports: Diabetes, Type II, Hyperthyroidism Dermatologic History: Reports: Other (See Below) Other Dermatologic History: Lower legs with dark pigmented color - Infectious Disease History Infectious Disease History: Reports: Measles - Past Surgical History Head Surgeries/Procedures: Reports: None Cardiovascular Surgical History: Reports: Coronary Artery Bypass, Coronary Artery Stent Respiratory Surgical History: Reports: None GI Surgical History: Reports: None Other Musculoskeletal Surgeries/Procedures:: presently has left neck pain Social & Family History - Family History Family Medical History: No Pertinent Family History - Caffeine Use Caffeine Use: Reports: None ED ROS GENERAL - Review of Systems Review Of Systems: See Below Constitutional: Reports: No Symptoms HEENT: Reports: No Symptoms Respiratory: Reports: No Symptoms Cardiovascular: Reports: No Symptoms GI/Abdominal: Reports: Abdominal Pain Musculoskeletal: Reports: No Symptoms Neurological: Reports: No Symptoms ED EXAM, GI/ABD - Physical Exam Exam: See Below Exam Limited By: No Limitations General Appearance: Alert, WD/WN, No Apparent Distress, Obese Head: Atraumatic Respiratory/Chest: No Respiratory Distress, Lungs Clear Cardiovascular: Regular Rate, Rhythm GI/Abdominal Exam: Soft, Tender (RUQ) Extremities: Normal Inspection Neurological: Alert, Oriented Course - Vital Signs Last Recorded V/S: Last Vital Signs Temp 36.2 C 02/14/21 01:18 Pulse 93 02/14/21 01:18 Resp 18 02/14/21 01:18 BP 124/72 02/14/21 01:18 Pulse Ox 97 02/14/21 01:18 - Orders/Labs/Meds Orders: Active Orders 24 hr Category Date Time Status Lactated Ringers [Ringers, Lactated] 1,000 ml Med 02/14/21 02:00 Active IV ASDIRECTED Sodium Chloride 0.9% [Saline Flush] Med 02/14/21 01:46 Active 10 ml FLUSH ASDIRECTED PRN Saline Lock Insert [OM.PC] Routine Oth 02/14/21 01:46 Ordered Medication Orders Lactated Ringer's (Ringers, Lactated) 1,000 mls @ 150 mls/hr IV ASDIRECTED CLAUDIO Last Infusion: 02/14/21 09:34 Dose: 0 mls/hr Documented by: Admin: 02/14/21 02:20 Dose: 150 mls/hr Documented by: ALBERTO Sodium Chloride (Sodium Chloride 0.9% 10 Ml Syringe) 10 ml FLUSH ASDIRECTED PRN PRN Reason: Keep Vein Open Labs: Laboratory Tests 02/14/21 02/14/21 Range/Units 02:25 02:30 WBC 4.2 D (4.0-11.0) K/uL RBC 4.41 L (4.50-6.50) M/uL Hgb 10.9 L (13.0-18.0) g/dL Hct 33.2 L (40.0-54.0) % MCV 75 L (76-96) fL MCH 24.7 L (27.0-32.0) pg MCHC 32.8 (31.0-35.0) g/dL RDW 18.4 H (11.0-16.0) % Plt Count 127 L (150-400) K/uL MPV 9.0 (6.0-10.0) fL Neut % (Auto) 64.3 (45.0-70.0) % Lymph % (Auto) 16.9 L (20.0-40.0) % [place] % (Auto) 18.1 H (3.0-10.0) % Eos % (Auto) 0.5 L (1.0-5.0) % Baso % (Auto) 0.2 (0.0-0.5) % Neut # (Auto) 2.70 (2.00-7.50) K/uL Lymph # (Auto) 0.71 L (1.50-4.00) K/uL [place] # (Auto) 0.76 (0.20-0.80) K/uL Eos # (Auto) 0.02 L (0.04-0.40) K/uL Baso # (Auto) 0.01 L (0.02-0.10) K/uL ESR 82 H (0-20) mm/hr Sodium 136 (136-145) mmol/L Potassium 3.7 (3.5-5.1) mmol/L Chloride 102 (98-107) mmol/L Carbon Dioxide 22.1 (21.0-32.0) mmol/L Anion Gap 15.6 H (5.0-15.0) mmol/L BUN 14 (8-26) mg/dL Creatinine 1.00 (0.70-1.30) mg/dL Est Cr Clr Drug Dosing TNP Estimated GFR (MDRD) > 60 (>60) MLS/MIN BUN/Creatinine Ratio 14.0 (6-25) Glucose 158 H D (74-100) mg/dL Calcium 8.2 L (8.5-10.1) mg/dL Total Bilirubin 0.6 D (0.0-1.0) mg/dL AST 17 (15-37) U/L ALT 18 (12-78) U/L Alkaline Phosphatase 71 (46-116) U/L C-Reactive Protein 95.8 H (0.0-3.0) mg/L Total Protein 6.8 (6.4-8.2) g/dL Albumin 3.0 L (3.4-5.0) g/dL Globulin 3.8 (2.2-4.2) g/dL Albumin/Globulin Ratio 0.8 (0.8-2.0) Meds: Medications Generic Name Dose Route Start Last Admin Trade Name Salty PRN Reason Stop Dose Admin Lactated Ringer's 1,000 mls @ 150 mls/hr 02/14/21 02:00 02/14/21 09:34 Ringers, Lactated IV Infused ASDIRECTED CLAUDIO Infusion Sodium Chloride 10 ml 02/14/21 01:46 Sodium Chloride 0.9% 10 Ml Syringe FLUSH ASDIRECTED PRN Keep Vein Open Discontinued Medications Generic Name Dose Route Start Last Admin Trade Name Freq PRN Reason Stop Dose Admin Ketorolac Tromethamine 15 mg 02/14/21 01:48 02/14/21 02:20 Ketorolac 60 Mg/2 Ml Sdv IVPUSH 02/14/21 01:49 15 mg ONETIME ONE Administration Ketorolac Tromethamine Confirm 02/14/21 02:06 02/14/21 02:54 Ketorolac 30 Mg/Ml Sdv Administered 02/14/21 02:07 Not Given Dose 30 mg .ROUTE .STK-MED ONE - Re-Assessments/Exams Free Text/Narrative Re-Assessment/Exam: vitals WNL labs - CBC, CMP - WNL.. elevation in ESR and CRP as expected IV toradol was given - pain significantly improved IVF was also given due to lack of PO intake at home pain remained less than 3 most of the time will d/c home on oral pain meds Departure - Departure Time of Disposition: 12:32 Disposition: Home, Self-Care 01 Condition: Good Clinical Impression: Biliary colic - Discharge Information *PRESCRIPTION DRUG MONITORING PROGRAM REVIEWED*: Not Applicable *COPY OF PRESCRIPTION DRUG MONITORING REPORT IN PATIENT MORENO: Not Applicable Instructions: Biliary Colic, Adult Referrals: PCP,None [Primary Care Provider] - Forms: ED Department Discharge Additional Instructions: - continue with antibiotics and pain medications as before - recommend to follow up with your PCP in 2-5 days to discuss referral to surgery for gall bladder removal Sepsis Event Note (ED) - Evaluation Sepsis Screening Result: No Definite Risk - Focused Exam Vital Signs: Vital Signs Temp Pulse Resp BP Pulse Ox 02/14/21 01:18 36.2 C 93 18 124/72 97 - Problem List & Annotations (1) Abdominal pain SNOMED Code(s): 81466326 Code(s): R10.9 - UNSPECIFIED ABDOMINAL PAIN Status: Acute Priority: Low Current Visit: No Qualifiers: Abdominal location: right upper quadrant Qualified Code(s): R10.11 - Right upper quadrant pain (2) Biliary colic SNOMED Code(s): 33327298 Code(s): K80.50 - CALCULUS OF BILE DUCT W/O CHOLANGITIS OR CHOLECYST W/O OBST Status: Acute Priority: Low Current Visit: Yes - Problem List Review Problem List Initiated/Reviewed/Updated: Yes - My Orders Last 24 Hours: My Active Orders 02/14/21 01:46 Sodium Chloride 0.9% [Saline Flush] 10 ml FLUSH ASDIRECTED PRN Saline Lock Insert [OM.PC] Routine 02/14/21 02:00 Lactated Ringers [Ringers, Lactated] 1,000 ml IV ASDIRECTED - Assessment/Plan Last 24 Hours: My Active Orders 02/14/21 01:46 Sodium Chloride 0.9% [Saline Flush] 10 ml FLUSH ASDIRECTED PRN Saline Lock Insert [OM.PC] Routine 02/14/21 02:00 Lactated Ringers [Ringers, Lactated] 1,000 ml IV ASDIRECTED Plan: continue with pain medications and Abx as prescribed follow up with your PCP and surgeon in 1-2 weeks to discuss surgery to remove your gall bladder - call to make an appointment
[2021-02-14] MEDS: Ketorolac 60 MG/2 ML SDV IVPUSH ONE (02:20)
[2021-02-14] MEDS: Lactated Ringers 1,000 ML IV SCH (02:20)
[2021-02-14] MEDS: Ketorolac 30 MG/ML SDV ONE (02:54)
== END 2021-02-14 12:54 | disposition home or self-care (01) ==
LOC: LB.ED 01:01
DX: K80.70 Calculus of gallbladder and bile duct without cholecystitis without obstruction (principal); I10 Essential (primary) hypertension; I25.2 Old myocardial infarction; K21.9 Gastro-esophageal reflux disease without esophagitis; E11.9 Type 2 diabetes mellitus without complications; E05.90 Thyrotoxicosis, unspecified without thyrotoxic crisis or storm; Z87.891 Personal history of nicotine dependence; Z79.4 Long term (current) use of insulin; Z79.899 Other long term (current) drug therapy
CPT/HCPCS: 36415; 80053; 85025; 85651; 86140; 96374; 99284-25; J1885; J7120

== ENCOUNTER 2021-02-26 12:22 | Emergency (ER) | payer MEDICARE ==
[2021-02-26] MEDS ORDERED: Ketorolac 30 MG/ML SDV IM ONE (12:54)
[2021-02-26] MEDS ORDERED: Ketorolac 30 MG/ML SDV ONE (12:55)
--- NOTE | 2021-02-26 15:25 | EDM.PDOC ---
ED HPI GENERAL MEDICAL PROBLEM - General Chief Complaint: Abdominal Pain Stated Complaint: ABDOMINAL PAIN Time Seen by Provider: 02/26/21 12:48 Source of Information: Reports: Patient History Limitations: Reports: No Limitations - History of Present Illness INITIAL COMMENTS - FREE TEXT/NARRATIVE: 70-year-old male presents to the ED complaining of abdominal pain. That is exactly the same as the gallbladder pain that he has been seen for, worked up for, and being scheduled for surgery in the coming weeks March 08. Patient had forgot that he has narcotic pain medication given to him for same pain. Onset was acute approximately 2 hours prior to arrival to ED. Patient states that his narcotic pain medication does relieve his pain. - Related Data Allergies Allergy/AdvReac Type Severity Reaction Status Date / Time No Known Allergies Allergy Verified 02/14/21 05:42 Home Meds: Home Meds Fluticasone/Salmeterol [Advair 250-50] 2 puff INH BID 05/03/13 [History] Furosemide 40 mg PO DAILY 05/03/13 [History] metFORMIN [Glucophage XR] 500 mg PO BIDM 02/08/14 [History] Docusate Sodium [Stool Softener] 250 mg PO DAILY 08/03/15 [History] Omeprazole 20 mg PO DAILY 08/03/15 [History] levETIRAcetam [Keppra] 500 mg PO BID 08/03/15 [History] Insulin Detemir [Levemir Flextouch] 36 unit SUBCUT BID 12/10/15 [History] methIMAzole [Methimazole] 15 mg PO DAILY 12/10/15 [History] Acetaminophen [Pain Reliever] 500 mg PO QID 04/20/17 [History] Isosorbide Mononitrate [Imdur] 30 mg PO DAILY 04/20/17 [History] lisinopriL [Lisinopril] 5 mg PO BEDTIME 08/25/19 [History] Cetirizine HCl 10 mg PO DAILY 03/25/20 [History] Gabapentin [Neurontin] 600 mg PO DAILY 03/25/20 [History] Nitroglycerin [Nitrostat] 0.4 mg SL ASDIRECTED 05/22/20 [History] Warfarin Sodium [Jantoven] 5 mg PO ASDIRECTED 05/22/20 [History] Cyanocobalamin (Vitamin B-12) [Vitamin B-12] 1,000 mcg PO DAILY 10/30/20 [History] DULoxetine HCl [Duloxetine HCl] 20 mg PO BID 10/30/20 [History] Ezetimibe 10 mg PO DAILY 10/30/20 [History] Ranolazine [Ranolazine ER] 1,000 mg PO BID 10/30/20 [History] Metoprolol Tartrate [Lopressor] 50 mg PO BID 02/10/21 [History] Acetaminophen/HYDROcodone [HYDROcodone-Acetaminophen 5-325 MG *] 1 tab PO Q4H PRN each 02/11/21 [Rx] Acetaminophen/HYDROcodone [HYDROcodone-Acetaminophen 5-325 MG *] 1 tab PO Q4H TN N #21 each 02/11/21 [Rx] Acetaminophen/HYDROcodone [HYDROcodone-Acetaminophen 5-325 MG *] 1 tab PO Q4H PRN #21 each 02/11/21 [Rx] Ciprofloxacin HCl [Cipro] 500 mg PO BID #8 tablet 02/11/21 [Rx] Ciprofloxacin [Ciprofloxacin HCl] 500 mg PO BID tablet 02/11/21 [Rx] Past Medical History - Past Health History Medical/Surgical History: Denies Medical/Surgical History HEENT History: Reports: Other (See Below) Other HEENT History: [place], states occasionally has trouble swallowing Cardiovascular History: Reports: Angina, Hypertension, [place], Stents Respiratory History: Reports: Asthma, Other (See Below) Other Respiratory History: hx of smoking and asthma Quit smoking 20 years ago Gastrointestinal History: Reports: Chronic Constipation, GERD Other Gastrointestinal History: Last BM 04/20/2016 Musculoskeletal History: Reports: Other (See Below) Other Musculoskeletal History: hx of meniscal tear, left knee pain, Hx bone too long in foot and had surgery summer. Between great toe and next on left foot, pt has left shoulder pain for the past 2 months Neurological History: Reports: CVA, Seizure Psychiatric History: Reports: Depression Endocrine/Metabolic History: Reports: Diabetes, Type II, Hyperthyroidism Dermatologic History: Reports: Other (See Below) Other Dermatologic History: Lower legs with dark pigmented color - Infectious Disease History Infectious Disease History: Reports: Chicken Pox, Measles, Novel Coronavirus - Past Surgical History Head Surgeries/Procedures: Reports: None Cardiovascular Surgical History: Reports: Coronary Artery Bypass, Coronary Artery Stent Respiratory Surgical History: Reports: None GI Surgical History: Reports: None Other Musculoskeletal Surgeries/Procedures:: presently has left neck pain Social & Family History - Family History Family Medical History: No Pertinent Family History - Caffeine Use Caffeine Use: Reports: None ED ROS GENERAL - Review of Systems Review Of Systems: See Below (Lower quadrants) Constitutional: Reports: No Symptoms HEENT: Reports: No Symptoms Respiratory: Reports: No Symptoms Cardiovascular: Reports: No Symptoms Endocrine: Reports: No Symptoms GI/Abdominal: Reports: Abdominal Pain : Reports: No Symptoms Musculoskeletal: Reports: No Symptoms Skin: Reports: No Symptoms Neurological: Reports: No Symptoms Psychiatric: Reports: No Symptoms Hematologic/Lymphatic: Reports: No Symptoms Immunologic: Reports: No Symptoms ED EXAM, GI/ABD - Physical Exam Exam: See Below Text/Narrative:: 62-year-old male presents the ED in bay 1 in semifowler position on stretcher. Patient is alert and oriented 3 of 3 GCS 4 5 6, patient is in mild distress secondary to pain, patient is speaking in full sentences. No obvious trauma noted. Exam Limited By: No Limitations General Appearance: Alert, WD/WN, No Apparent Distress Eyes: Bilateral: EOMI Ears: Normal External Exam, Hearing Grossly Normal Nose: No Blood, Nasal Deformity Throat/Mouth: Normal Lips, Normal Voice, No Airway Compromise Head: Atraumatic, Normocephalic Neck: Normal Inspection, Supple, Non-Tender, Full Range of Motion Respiratory/Chest: No Respiratory Distress, Lungs Clear, Normal Breath Sounds, No Accessory Muscle Use, Chest Non-Tender Cardiovascular: Normal Peripheral Pulses, Regular Rate, Rhythm, No Edema, No Gallop, No JVD, No Murmur, No Rub GI/Abdominal Exam: Normal Bowel Sounds, Soft, No Organomegaly, No Distention, No Mass, Tender (Right upper quadrant, right lower quadrant left lower quadrant. Again exactly the same as his gallbladder polyp pain previously) Back Exam: Normal Inspection Extremities: No Pedal Edema Neurological: Alert, Oriented, Normal Cognition Psychiatric: Normal Affect, Normal Mood Skin Exam: Warm, Dry, Intact, Normal Color, No Rash Course - Orders/Labs/Meds Meds: Medications Discontinued Medications Generic Name Dose Route Start Last Admin Trade Name Freq PRN Reason Stop Dose Admin Ketorolac Tromethamine Confirm 02/26/21 12:55 02/26/21 12:55 Ketorolac 30 Mg/Ml Sdv Administered 02/26/21 12:56 Not Given Dose 30 mg .ROUTE .STK-MED ONE Ketorolac Tromethamine 30 mg 02/26/21 12:54 02/26/21 12:44 Ketorolac 30 Mg/Ml Sdv IM 02/26/21 12:55 30 mg ONETIME ONE Administration Departure - Departure Time of Disposition: 12:50 Disposition: Home, Self-Care 01 Condition: Good Clinical Impression: Cholelithiasis Qualifiers: Cholelithiasis location: other site Biliary obstruction: without biliary obstruction Qualified Code(s): K80.80 - Other cholelithiasis without obstruction - Discharge Information *PRESCRIPTION DRUG MONITORING PROGRAM REVIEWED*: No *COPY OF PRESCRIPTION DRUG MONITORING REPORT IN PATIENT MORENO: No Instructions: Minimally Invasive Cholecystectomy, Care After, Cholelithiasis, [id number] Referrals: Casey Oliver MD [Primary Care Provider] - Forms: ED Department Discharge Additional Instructions: Take home Sapulpa as directed every 4-6 hours as needed for abd pain. Return to ED if pain not improved with Sapulpa/Hydrocodone. - Assessment/Plan Assessment:: 70-year-old male complaining abdominal pain that is exactly the same as his previous abdominal pain that has been worked up for gallbladder issue. Patient is scheduled on March 08. Based on patient's presentation, history, exam consistent with his pre-existing gallbladder colic patient was advised to take medication that he was prescribed for same. And return to the ED if he develops a fever, pain increases, or he has any other serious concerns. Patient will be contacted by nursing staff to start MiraLAX 1 cap daily for constipation. Patient was explained the treatment plan patient agreed and all questions were answered to the patient's satisfaction, patient was discharged in stable condition.
== END 2021-02-26 12:59 | disposition home or self-care (01) ==
LOC: LB.ED 12:22
DX: K80.80 Other cholelithiasis without obstruction (principal); I25.2 Old myocardial infarction; I10 Essential (primary) hypertension; K21.9 Gastro-esophageal reflux disease without esophagitis; E05.90 Thyrotoxicosis, unspecified without thyrotoxic crisis or storm; Z86.73 Personal history of transient ischemic attack (TIA), and cerebral infarction without residual deficits; Z95.5 Presence of coronary angioplasty implant and graft; Z79.899 Other long term (current) drug therapy; Z79.84 Long term (current) use of oral hypoglycemic drugs; Z86.16 Personal history of COVID-19
CPT/HCPCS: 96372; 99283; J1885

== ENCOUNTER 2021-04-29 16:27 | Emergency (ER) | payer MEDICARE ==
[2021-04-29] MEDS: Ketorolac 60 MG/2 ML SDV IM ONE (17:32)
[2021-04-29 17:34] VITALS: BP 145/85; PULSE 94
== END 2021-04-29 17:45 | disposition home or self-care (01) ==
LOC: LB.ED 16:27
DX: S40.012A Contusion of left shoulder, initial encounter (principal); I10 Essential (primary) hypertension; I25.2 Old myocardial infarction; J45.909 Unspecified asthma, uncomplicated; K21.9 Gastro-esophageal reflux disease without esophagitis; E11.9 Type 2 diabetes mellitus without complications; Z87.891 Personal history of nicotine dependence; Z86.16 Personal history of COVID-19; Z79.4 Long term (current) use of insulin; Z79.899 Other long term (current) drug therapy; W01.0XXA Fall on same level from slipping, tripping and stumbling without subsequent striking against object, initial encounter; Y92.009 Unspecified place in unspecified non-institutional (private) residence as the place of occurrence of the external cause
CPT/HCPCS: 73020; 73080; 96372; 99283; J1885

== ENCOUNTER 2021-05-10 22:05 | Emergency (ER) | payer MEDICARE ==
[2021-05-10] MEDS: Ketorolac 30 MG/ML SDV IM ONE (23:40)
[2021-05-10] MEDS: Ketorolac 30 MG/ML SDV ONE (23:50)
[2021-05-11 03:49] VITALS: BP 105/66; PULSE 65
[2021-05-11] MEDS: traMADol 50 MG Tab PO ONE (04:13)
== END 2021-05-11 05:20 | disposition home or self-care (01) ==
LOC: LB.ED 22:05
DX: M25.512 Pain in left shoulder (principal); R79.89 Other specified abnormal findings of blood chemistry; I10 Essential (primary) hypertension; I25.2 Old myocardial infarction; J45.909 Unspecified asthma, uncomplicated; K21.9 Gastro-esophageal reflux disease without esophagitis; E11.9 Type 2 diabetes mellitus without complications; R56.9 Unspecified convulsions; E05.90 Thyrotoxicosis, unspecified without thyrotoxic crisis or storm; Z87.891 Personal history of nicotine dependence; Z79.4 Long term (current) use of insulin; Z79.899 Other long term (current) drug therapy; Z20.822 Contact with and (suspected) exposure to COVID-19
CPT/HCPCS: 36415; 73030-LT; 80048; 84484; 85025; 93005; 99284-25; A9270-GY; J1885; U0002

== ENCOUNTER 2021-07-22 13:14 | Emergency (ER) | payer MEDICARE ==
[2021-07-22 13:23] VITALS: BP 165/79; PULSE 96
== END 2021-07-22 14:35 | disposition home or self-care (01) ==
LOC: LB.ED 13:14
DX: M54.2 Cervicalgia (principal)
CPT/HCPCS: 36415; 80048; 85025; 85379; 99283

== ENCOUNTER 2021-08-11 13:58 | Emergency (ER) | payer MEDICARE ==
[2021-08-11 14:09] VITALS: BP 120/59; PULSE 89
[2021-08-11] MEDS ORDERED: Acetaminophen 500 MG Tab PO ONE (14:15)
[2021-08-11] MEDS ORDERED: Orphenadrine 60 MG/2 ML Inj IM ONE (14:16)
[2021-08-11] MEDS ORDERED: Orphenadrine 60 MG/2 ML Inj ONE (14:41)
== END 2021-08-11 15:00 | disposition home or self-care (01) ==
LOC: LB.ED 13:58
DX: M25.512 Pain in left shoulder (principal); E11.9 Type 2 diabetes mellitus without complications; E05.90 Thyrotoxicosis, unspecified without thyrotoxic crisis or storm; I10 Essential (primary) hypertension; K21.9 Gastro-esophageal reflux disease without esophagitis; I25.2 Old myocardial infarction; Z95.5 Presence of coronary angioplasty implant and graft; Z86.73 Personal history of transient ischemic attack (TIA), and cerebral infarction without residual deficits; Z79.01 Long term (current) use of anticoagulants; Z79.4 Long term (current) use of insulin; Z79.899 Other long term (current) drug therapy; Z87.891 Personal history of nicotine dependence
CPT/HCPCS: 93005; 96372; 99282; 99283-25; A9270-GY; J2360

== ENCOUNTER 2021-09-05 14:47 | Emergency (ER) | payer MEDICARE ==
[2021-09-05 15:16] VITALS: BP 138/74
[2021-09-05] MEDS ORDERED: Diphtheria,Pertussis(Acell),Tetanus Vaccine 0.5 ML SDV IM ONE (15:18)
[2021-09-05 15:50] VITALS: PULSE 81
== END 2021-09-05 15:35 | disposition home or self-care (01) ==
LOC: LB.ED 14:47
DX: S80.811A Abrasion, right lower leg, initial encounter (principal); S81.801A Unspecified open wound, right lower leg, initial encounter; I25.2 Old myocardial infarction; K21.9 Gastro-esophageal reflux disease without esophagitis; I10 Essential (primary) hypertension; E11.9 Type 2 diabetes mellitus without complications; Z86.16 Personal history of COVID-19; Z86.73 Personal history of transient ischemic attack (TIA), and cerebral infarction without residual deficits; Z79.899 Other long term (current) drug therapy; Z79.84 Long term (current) use of oral hypoglycemic drugs; Z23 Encounter for immunization; Z79.4 Long term (current) use of insulin; Z79.01 Long term (current) use of anticoagulants; W22.8XXA Striking against or struck by other objects, initial encounter
CPT/HCPCS: 90471; 90715; 99281; 99283

== ENCOUNTER 2021-10-01 13:11 | Emergency (ER) | payer MEDICARE ==
[2021-10-01 13:48] VITALS: BP 134/81; PULSE 82
[2021-10-01] MEDS: Ketorolac 60 MG/2 ML SDV IM ONE (14:04)
[2021-10-01] MEDS ORDERED: Ketorolac 30 MG/ML SDV ONE (14:09)
== END 2021-10-01 14:24 | disposition home or self-care (01) ==
LOC: LB.ED 13:11
DX: M25.512 Pain in left shoulder (principal); G89.29 Other chronic pain; I25.2 Old myocardial infarction; I10 Essential (primary) hypertension; J45.909 Unspecified asthma, uncomplicated; K21.9 Gastro-esophageal reflux disease without esophagitis; E11.9 Type 2 diabetes mellitus without complications; E05.90 Thyrotoxicosis, unspecified without thyrotoxic crisis or storm; Z79.84 Long term (current) use of oral hypoglycemic drugs; Z79.4 Long term (current) use of insulin; Z79.899 Other long term (current) drug therapy
CPT/HCPCS: 96372; 99283; J1885; 99282

== ENCOUNTER 2021-10-11 13:23 | Emergency (ER) | payer MEDICARE | END 2021-10-11 13:24 | disposition home or self-care (01) | LOC: LB.ED 13:23 | DX: R41.0 Disorientation, unspecified (principal) | CPT/HCPCS: 82947; 99281; 99283 ==

== ENCOUNTER 2021-11-06 02:15 | Emergency (ER) | payer MEDICARE ==
[2021-11-06 02:59] VITALS: BP 140/89; PULSE 96
[2021-11-06] MEDS: Ketorolac 60 MG/2 ML SDV IM ONE (03:17)
[2021-11-06] MEDS ORDERED: Ibuprofen 400 MG Tab ONE (04:30)
== END 2021-11-06 04:40 | disposition home or self-care (01) ==
LOC: LB.ED 02:15
DX: G89.29 Other chronic pain (principal); M25.512 Pain in left shoulder; I10 Essential (primary) hypertension; I25.2 Old myocardial infarction; E11.9 Type 2 diabetes mellitus without complications; E05.90 Thyrotoxicosis, unspecified without thyrotoxic crisis or storm; Z79.01 Long term (current) use of anticoagulants; Z79.4 Long term (current) use of insulin; Z79.899 Other long term (current) drug therapy; Z86.16 Personal history of COVID-19; Z87.891 Personal history of nicotine dependence
CPT/HCPCS: 96372; 99283; A9270-GY; J1885

== ENCOUNTER 2021-11-16 00:11 | Emergency (ER) | payer MEDICARE ==
[2021-11-16 00:53] VITALS: BP 128/73; PULSE 90
== END 2021-11-16 01:05 | disposition home or self-care (01) ==
LOC: LB.ED 00:11
DX: M19.012 Primary osteoarthritis, left shoulder (principal); I10 Essential (primary) hypertension; I25.2 Old myocardial infarction; E11.9 Type 2 diabetes mellitus without complications; E03.9 Hypothyroidism, unspecified; Z86.16 Personal history of COVID-19; Z86.73 Personal history of transient ischemic attack (TIA), and cerebral infarction without residual deficits; Z79.01 Long term (current) use of anticoagulants; Z79.4 Long term (current) use of insulin; Z79.899 Other long term (current) drug therapy
CPT/HCPCS: 85610; 99281; 99283

== ENCOUNTER 2022-03-02 09:36 | Emergency (ER) | payer MEDICARE ==
[2022-03-02 11:27] VITALS: BP 108/69; PULSE 97
== END 2022-03-02 11:10 | disposition home or self-care (01) ==
LOC: LB.ED 09:36
DX: L03.116 Cellulitis of left lower limb (principal); M25.512 Pain in left shoulder; I10 Essential (primary) hypertension; I25.2 Old myocardial infarction; J45.909 Unspecified asthma, uncomplicated; K21.9 Gastro-esophageal reflux disease without esophagitis; M19.90 Unspecified osteoarthritis, unspecified site; E11.9 Type 2 diabetes mellitus without complications; E05.90 Thyrotoxicosis, unspecified without thyrotoxic crisis or storm; Z79.4 Long term (current) use of insulin; Z79.01 Long term (current) use of anticoagulants; Z79.899 Other long term (current) drug therapy; Z87.891 Personal history of nicotine dependence
CPT/HCPCS: 99283

== ENCOUNTER 2022-03-02 20:15 | Inpatient (IN) | payer MEDICARE ==
[2022-03-02] MEDS ORDERED: Clopidogrel 75 MG Tab PO ONE (22:03)
[2022-03-02] MEDS ORDERED: Aspirin 81 MG Tab.Chew PO ONE (22:03)
[2022-03-02] MEDS ORDERED: fentaNYL 100 MCG/2 ML SDV IVPUSH ONE (22:12)
[2022-03-02] MEDS ORDERED: Heparin Sodium 5,000 Units/ML Vial IVPUSH ONE (22:14)
[2022-03-02] MEDS ORDERED: Clopidogrel 75 MG Tab ONE (22:19)
[2022-03-02] MEDS ORDERED: fentaNYL 100 MCG/2 ML SDV ONE (22:24)
[2022-03-02] MEDS ORDERED: Heparin Sodium/D5W 25,000 UNITS/500 ML BAG IV SCH (22:30)
[2022-03-02] MEDS ORDERED: 50% Dextrose in Water 50 ML Syringe IVPUSH PRN (22:43)
[2022-03-02] MEDS ORDERED: Glucagon,Human Recombinant 1 MG Vial IM PRN (22:43)
[2022-03-02] MEDS ORDERED: Ondansetron 4 MG/2 ML SDV IVPUSH ONE (23:35)
[2022-03-03] MEDS ORDERED: oxyCODONE 5 MG Tab PO PRN (01:03)
[2022-03-03] MEDS ORDERED: Ondansetron 4 MG/2 ML SDV IVPUSH PRN (01:06)
[2022-03-03] MEDS ORDERED: Morphine 2 MG/ML SYRINGE ONE (01:06)
[2022-03-03] MEDS: Morphine 2 MG/ML SYRINGE IVPUSH PRN ×2 (01:08→02:56)
[2022-03-03] MEDS ORDERED: Furosemide 40 MG/4 ML VIAL IVPUSH ONE (01:42)
[2022-03-03] MEDS ORDERED: Nitroglycerin 0.4 MG Tab.SL SL PRN (02:37)
[2022-03-03] MEDS ORDERED: Clopidogrel 75 MG Tab PO SCH (08:00)
[2022-03-03] MEDS ORDERED: Gabapentin 300 MG Cap PO SCH (08:00)
[2022-03-03] MEDS ORDERED: FLUTICASONE INH SCH (08:00)
[2022-03-03] MEDS ORDERED: [UNRECOGNIZED DRUG - OTHER] INH SCH (08:00)
[2022-03-03] MEDS ORDERED: Isosorbide Mononitrate 30 MG Tab.ER PO SCH (08:00)
[2022-03-03] MEDS ORDERED: Aspirin 325 MG Tab.EC PO SCH (08:00)
[2022-03-03] MEDS ORDERED: Insulin Detemir 100 Units/ML 3 ML Pen SUBCUT SCH (08:00)
[2022-03-03] MEDS ORDERED: metFORMIN 500 MG Tab.ER PO SCH (08:00)
[2022-03-03] MEDS ORDERED: Cyanocobalamin (Vitamin B12) 1,000 MCG Tab PO SCH (08:00)
[2022-03-03] MEDS ORDERED: DIS INH SCH (08:00)
[2022-03-03] MEDS ORDERED: Omeprazole 20 MG Cap.CR PO SCH (08:00)
[2022-03-03] MEDS ORDERED: Ezetimibe 10 MG Tab PO SCH (08:00)
[2022-03-03] MEDS ORDERED: Docusate Sodium 250 MG Cap PO SCH (08:00)
[2022-03-03] MEDS ORDERED: SALMETEROL INH SCH (08:00)
[2022-03-03] MEDS ORDERED: Furosemide 20 MG Tab PO SCH (08:00)
[2022-03-03] MEDS ORDERED: DULoxetine 20 MG Cap PO SCH (08:00)
[2022-03-03] MEDS ORDERED: levETIRAcetam 500 MG Tab PO SCH (08:00)
[2022-03-03] MEDS ORDERED: Cholecalciferol (Vitamin D3) 10 MCG Tab PO SCH (08:00)
[2022-03-03] MEDS: Insulin Aspart 100 Units/ML 3 ML Pen SUBCUT SCH ×2 (08:23→12:15)
[2022-03-03] MEDS ORDERED: 50% Dextrose in Water 50 ML Syringe IVPUSH PRN (08:31)
[2022-03-03] MEDS ORDERED: Glucagon,Human Recombinant 1 MG Vial IM PRN (08:31)
[2022-03-03] MEDS ORDERED: Insulin Glargine,Human Rec. Analog 100 Units/ML 3 ML Pen SUBCUT SCH (08:45)
[2022-03-03] MEDS ORDERED: Enoxaparin 100 MG/1 ML Syringe SUBCUT SCH (11:15)
[2022-03-03 12:07] VITALS: BP 109/63; PULSE 98
== END 2022-03-03 13:15 | DRG 281 ==
LOC: LB.ED 20:15 → LB.MS 22:42 → LB.ED 23:10
PROVIDERS: ADMIT Physician Assistant; ATTEND Physician Assistant
DX: I21.4 Non-ST elevation (NSTEMI) myocardial infarction (principal); L03.116 Cellulitis of left lower limb; R77.8 Other specified abnormalities of plasma proteins; J45.909 Unspecified asthma, uncomplicated; K21.9 Gastro-esophageal reflux disease without esophagitis; M19.90 Unspecified osteoarthritis, unspecified site; R56.9 Unspecified convulsions; F32.A Depression, unspecified; E11.9 Type 2 diabetes mellitus without complications; I25.10 Atherosclerotic heart disease of native coronary artery without angina pectoris; E11.42 Type 2 diabetes mellitus with diabetic polyneuropathy; J44.9 Chronic obstructive pulmonary disease, unspecified; E11.51 Type 2 diabetes mellitus with diabetic peripheral angiopathy without gangrene; I11.0 Hypertensive heart disease with heart failure; D64.9 Anemia, unspecified; G40.909 Epilepsy, unspecified, not intractable, without status epilepticus; I50.9 Heart failure, unspecified; E05.90 Thyrotoxicosis, unspecified without thyrotoxic crisis or storm; H91.90 Unspecified hearing loss, unspecified ear; Z20.822 Contact with and (suspected) exposure to COVID-19; Z79.01 Long term (current) use of anticoagulants; I25.2 Old myocardial infarction; Z79.4 Long term (current) use of insulin; Z79.899 Other long term (current) drug therapy; Z95.5 Presence of coronary angioplasty implant and graft; Z87.891 Personal history of nicotine dependence; Z86.73 Personal history of transient ischemic attack (TIA), and cerebral infarction without residual deficits; Z86.16 Personal history of COVID-19; Z86.19 Personal history of other infectious and parasitic diseases; Z95.1 Presence of aortocoronary bypass graft; Z98.42 Cataract extraction status, left eye; Z90.89 Acquired absence of other organs; Z90.49 Acquired absence of other specified parts of digestive tract
CPT/HCPCS: 36415; 71250; 80053; 82947; 83880; 84484; 85025; 85610; 85730; 93005; A0425; A0429; A9270-GY; J1644; J1650; J1815-GY; J1940; J2270; J3010; U0002

== ENCOUNTER 2022-04-11 15:55 | Emergency (ER) | payer MEDICARE ==
[2022-04-11] MEDS: Phytonadione 5 MG Tab PO ONE (17:47)
[2022-04-11 18:28] VITALS: BP 102/67; PULSE 98
== END 2022-04-11 18:00 | disposition home or self-care (01) ==
LOC: LB.ED 18:00
DX: T45.511A Poisoning by anticoagulants, accidental (unintentional), initial encounter (principal); R04.0 Epistaxis; I11.0 Hypertensive heart disease with heart failure; I50.9 Heart failure, unspecified; I25.2 Old myocardial infarction; E11.9 Type 2 diabetes mellitus without complications; Z79.899 Other long term (current) drug therapy; Z79.84 Long term (current) use of oral hypoglycemic drugs; Z79.4 Long term (current) use of insulin; Z79.01 Long term (current) use of anticoagulants; Z86.16 Personal history of COVID-19; Z87.891 Personal history of nicotine dependence
CPT/HCPCS: 30903; 36415; 85610; 99283; A9270

== ENCOUNTER 2022-04-17 14:38 | Emergency (ER) | payer MEDICARE ==
[2022-04-17 14:57] VITALS: BP 104/56; PULSE 80
== END 2022-04-17 16:30 | disposition home or self-care (01) ==
LOC: LB.ED 14:38
DX: S01.81XA Laceration without foreign body of other part of head, initial encounter (principal); S20.211A Contusion of right front wall of thorax, initial encounter; I11.0 Hypertensive heart disease with heart failure; I50.9 Heart failure, unspecified; E11.9 Type 2 diabetes mellitus without complications; Z79.899 Other long term (current) drug therapy; Z79.4 Long term (current) use of insulin; Z79.01 Long term (current) use of anticoagulants; Z86.16 Personal history of COVID-19; W07.XXXA Fall from chair, initial encounter
CPT/HCPCS: 70450; 99283; A0425; A0429

== ENCOUNTER 2022-04-18 12:52 | Emergency (ER) | payer MEDICARE ==
[2022-04-18 13:03] VITALS: BP 118/67; PULSE 83
[2022-04-18] MEDS: Sodium Chloride 0.9% 500 ML IV ONE (13:53)
[2022-04-18] MEDS ORDERED: Sodium Chloride 0.9% 10 ML Syringe FLUSH PRN (14:54)
== END 2022-04-18 17:45 | disposition home or self-care (01) ==
LOC: LB.ED 12:52
DX: S40.012A Contusion of left shoulder, initial encounter (principal); I11.0 Hypertensive heart disease with heart failure; I50.9 Heart failure, unspecified; I95.9 Hypotension, unspecified; I25.2 Old myocardial infarction; E11.9 Type 2 diabetes mellitus without complications; Z79.899 Other long term (current) drug therapy; Z79.4 Long term (current) use of insulin; Z86.16 Personal history of COVID-19; Z79.01 Long term (current) use of anticoagulants; W01.0XXA Fall on same level from slipping, tripping and stumbling without subsequent striking against object, initial encounter
CPT/HCPCS: 36415; 73030-LT; 73060-LT; 80048; 85025; 96360; 99284-25; A0425; A0429; J7040

== ENCOUNTER 2022-04-19 13:13 | Inpatient (IN) | payer MEDICARE ==
[2022-04-19] MEDS ORDERED: Sodium Chloride 0.9% 10 ML Syringe FLUSH PRN (14:44)
[2022-04-19] MEDS ORDERED: Furosemide 40 MG/4 ML VIAL IVPUSH ONE (14:44)
[2022-04-19] MEDS ORDERED: Glucagon,Human Recombinant 1 MG Vial IM PRN (15:14)
[2022-04-19] MEDS ORDERED: 50% Dextrose in Water 50 ML Syringe IVPUSH PRN ×2 (15:14→20:59)
[2022-04-19] MEDS ORDERED: Warfarin 5 MG Tab PO SCH (15:15)
[2022-04-19] MEDS: cefTRIAXone 1 GM Vial IVPUSH SCH (15:39)
[2022-04-19] MEDS ORDERED: Furosemide 40 MG/4 ML VIAL ONE (15:40)
[2022-04-19] MEDS ORDERED: cefTRIAXone 1 GM Vial ONE (15:40)
[2022-04-19] MEDS ORDERED: Furosemide 40 MG/4 ML VIAL IVPUSH SCH (20:00)
[2022-04-19] MEDS ORDERED: Insulin Detemir 100 Units/ML 3 ML Pen SUBCUT SCH (20:00)
[2022-04-19] MEDS: [UNRECOGNIZED DRUG - OTHER] INH SCH (20:56)
[2022-04-19] MEDS: DIS INH SCH (20:56)
[2022-04-19] MEDS: SALMETEROL INH SCH (20:56)
[2022-04-19] MEDS: FLUTICASONE INH SCH (20:56)
[2022-04-19] MEDS: levETIRAcetam 500 MG Tab PO SCH (21:01)
[2022-04-19] MEDS: Gabapentin 600 MG Tab PO SCH (21:01)
[2022-04-19] MEDS: DULoxetine 20 MG Cap PO SCH (21:01)
[2022-04-19] MEDS: Insulin Glargine,Human Rec. Analog 100 Units/ML 3 ML Pen SUBCUT SCH (21:05)
[2022-04-19] MEDS ORDERED: Acetaminophen 500 MG Tab PO ONE (23:18)
[2022-04-19] MEDS ORDERED: Acetaminophen 500 MG Tab ONE (23:44)
[2022-04-20] MEDS: Docusate Sodium 250 MG Cap PO SCH (07:57)
[2022-04-20] MEDS: DULoxetine 20 MG Cap PO SCH ×2 (07:57→19:49)
[2022-04-20] MEDS: Aspirin 81 MG Tab.Chew PO SCH (07:57)
[2022-04-20] MEDS: DIS INH SCH (07:58)
[2022-04-20] MEDS: FLUTICASONE INH SCH (07:58)
[2022-04-20] MEDS: SALMETEROL INH SCH (07:58)
[2022-04-20] MEDS: Tamsulosin 0.4 MG Cap.ER PO SCH (07:58)
[2022-04-20] MEDS: levETIRAcetam 500 MG Tab PO SCH ×2 (07:58→19:49)
[2022-04-20] MEDS: [UNRECOGNIZED DRUG - OTHER] INH SCH (07:58)
[2022-04-20] MEDS: Ezetimibe 10 MG Tab PO SCH (08:00)
[2022-04-20] MEDS: METHIMAZOLE 10 MG PO SCH (08:01)
[2022-04-20] MEDS: Insulin Glargine,Human Rec. Analog 100 Units/ML 3 ML Pen SUBCUT SCH (08:22)
[2022-04-20] MEDS: Furosemide 40 MG/4 ML VIAL IVPUSH SCH ×2 (08:22→13:42)
[2022-04-20] MEDS: Formoterol/Mometasone 200-5 MCG 8.8 GM Inhaler IH SCH ×2 (10:31→19:50)
[2022-04-20] MEDS: cefTRIAXone 1 GM Vial IVPUSH SCH (15:20)
[2022-04-20] MEDS: Gabapentin 600 MG Tab PO SCH (19:49)
[2022-04-21] MEDS: Aspirin 81 MG Tab.Chew PO SCH (08:19)
[2022-04-21] MEDS: DULoxetine 20 MG Cap PO SCH ×2 (08:20→20:10)
[2022-04-21] MEDS: levETIRAcetam 500 MG Tab PO SCH ×2 (08:20→20:10)
[2022-04-21] MEDS: Formoterol/Mometasone 200-5 MCG 8.8 GM Inhaler IH SCH ×2 (08:20→20:09)
[2022-04-21] MEDS: Docusate Sodium 250 MG Cap PO SCH (08:20)
[2022-04-21] MEDS: Ezetimibe 10 MG Tab PO SCH (08:20)
[2022-04-21] MEDS: Tamsulosin 0.4 MG Cap.ER PO SCH (08:20)
[2022-04-21] MEDS: Furosemide 40 MG/4 ML VIAL IVPUSH SCH ×2 (08:21→13:10)
[2022-04-21] MEDS: Insulin Glargine,Human Rec. Analog 100 Units/ML 3 ML Pen SUBCUT SCH (08:35)
[2022-04-21] MEDS ORDERED: Acetaminophen 325 MG Tab PO PRN (09:01)
[2022-04-21] MEDS: Omeprazole 20 MG Cap.CR PO SCH (09:57)
[2022-04-21] MEDS: Lidocaine 5% 700 MG Patch TRDERM SCH (09:57)
[2022-04-21] MEDS: METHIMAZOLE 10 MG PO SCH (10:15)
[2022-04-21] MEDS ORDERED: Magnesium Oxide 400 MG Tab ONE (11:00)
[2022-04-21] MEDS: Magnesium Oxide 400 MG Tab PO SCH (11:00)
[2022-04-21] MEDS: Potassium Chloride 20 MEQ Tab.ER PO SCH ×2 (14:36→20:10)
[2022-04-21] MEDS: Warfarin 5 MG Tab PO SCH (14:42)
[2022-04-21] MEDS ORDERED: cefTRIAXone 1 GM Vial IM SCH (17:45)
[2022-04-21] MEDS ORDERED: Warfarin 2.5 MG Tab PO SCH (18:00)
[2022-04-21] MEDS ORDERED: Lidocaine 1% 5 ML VIAL ONE (18:14)
[2022-04-21] MEDS: Furosemide 80 MG Tab PO SCH (18:21)
[2022-04-21] MEDS: cefTRIAXone 1 GM Vial IM SCH (18:22)
[2022-04-21] MEDS: Lidocaine 1% 10 ML MDV INJECT SCH (18:30)
[2022-04-21] MEDS: Gabapentin 600 MG Tab PO SCH (20:10)
[2022-04-22] MEDS: METHIMAZOLE 10 MG PO SCH (08:36)
[2022-04-22] MEDS: Aspirin 81 MG Tab.Chew PO SCH (08:36)
[2022-04-22] MEDS: DULoxetine 20 MG Cap PO SCH ×2 (08:36→19:43)
[2022-04-22] MEDS: Magnesium Oxide 400 MG Tab PO SCH (08:36)
[2022-04-22] MEDS: Docusate Sodium 250 MG Cap PO SCH (08:37)
[2022-04-22] MEDS: Tamsulosin 0.4 MG Cap.ER PO SCH (08:37)
[2022-04-22] MEDS: Ezetimibe 10 MG Tab PO SCH (08:37)
[2022-04-22] MEDS: Omeprazole 20 MG Cap.CR PO SCH (08:37)
[2022-04-22] MEDS: Formoterol/Mometasone 200-5 MCG 8.8 GM Inhaler IH SCH ×2 (08:38→19:43)
[2022-04-22] MEDS: Furosemide 80 MG Tab PO SCH ×2 (08:38→17:57)
[2022-04-22] MEDS: levETIRAcetam 500 MG Tab PO SCH ×2 (08:38→19:43)
[2022-04-22] MEDS: Potassium Chloride 20 MEQ Tab.ER PO SCH ×2 (08:38→19:43)
[2022-04-22] MEDS: Lidocaine 5% 700 MG Patch TRDERM SCH (08:39)
[2022-04-22] MEDS: Insulin Glargine,Human Rec. Analog 100 Units/ML 3 ML Pen SUBCUT SCH (09:25)
[2022-04-22] MEDS ORDERED: Lidocaine 1% 5 ML VIAL ONE (17:20)
[2022-04-22] MEDS: cefTRIAXone 1 GM Vial IM SCH (17:57)
[2022-04-22] MEDS: Warfarin 5 MG Tab PO SCH (17:58)
[2022-04-22] MEDS: Lidocaine 1% 10 ML MDV INJECT SCH (17:58)
[2022-04-22] MEDS: Gabapentin 600 MG Tab PO SCH (19:44)
[2022-04-23 07:47] VITALS: BP 94/59; PULSE 79
[2022-04-23] MEDS: Aspirin 81 MG Tab.Chew PO SCH (07:54)
[2022-04-23] MEDS: DULoxetine 20 MG Cap PO SCH (07:55)
[2022-04-23] MEDS: Docusate Sodium 250 MG Cap PO SCH (07:55)
[2022-04-23] MEDS: Tamsulosin 0.4 MG Cap.ER PO SCH (07:55)
[2022-04-23] MEDS: levETIRAcetam 500 MG Tab PO SCH (07:55)
[2022-04-23] MEDS: Formoterol/Mometasone 200-5 MCG 8.8 GM Inhaler IH SCH (07:55)
[2022-04-23] MEDS: Potassium Chloride 20 MEQ Tab.ER PO SCH (07:56)
[2022-04-23] MEDS: Insulin Glargine,Human Rec. Analog 100 Units/ML 3 ML Pen SUBCUT SCH (07:56)
[2022-04-23] MEDS: Lidocaine 5% 700 MG Patch TRDERM SCH (07:56)
[2022-04-23] MEDS: Furosemide 80 MG Tab PO SCH (07:56)
[2022-04-23] MEDS: Magnesium Oxide 400 MG Tab PO SCH (07:57)
[2022-04-23] MEDS: Omeprazole 20 MG Cap.CR PO SCH (07:57)
[2022-04-23] MEDS: METHIMAZOLE 10 MG PO SCH (07:57)
[2022-04-23] MEDS: Ezetimibe 10 MG Tab PO SCH (07:58)
== END 2022-04-23 10:09 | disposition home or self-care (01) | DRG 195 ==
LOC: LB.ED 13:13 → LB.MS 15:10
PROVIDERS: ADMIT Registered Nurse; ATTEND Surgery
DX: J18.9 Pneumonia, unspecified organism (principal); I50.9 Heart failure, unspecified; S81.802D Unspecified open wound, left lower leg, subsequent encounter; E87.6 Hypokalemia; E83.42 Hypomagnesemia; I11.0 Hypertensive heart disease with heart failure; J45.909 Unspecified asthma, uncomplicated; K21.9 Gastro-esophageal reflux disease without esophagitis; M19.90 Unspecified osteoarthritis, unspecified site; F32.A Depression, unspecified; E05.90 Thyrotoxicosis, unspecified without thyrotoxic crisis or storm; E11.9 Type 2 diabetes mellitus without complications; M25.512 Pain in left shoulder; R07.81 Pleurodynia; W19.XXXD Unspecified fall, subsequent encounter; Z96.611 Presence of right artificial shoulder joint; H91.90 Unspecified hearing loss, unspecified ear; Z95.1 Presence of aortocoronary bypass graft; Z95.5 Presence of coronary angioplasty implant and graft; Z86.19 Personal history of other infectious and parasitic diseases; I25.2 Old myocardial infarction; Z87.891 Personal history of nicotine dependence; Z86.73 Personal history of transient ischemic attack (TIA), and cerebral infarction without residual deficits; Z79.899 Other long term (current) drug therapy; Z79.4 Long term (current) use of insulin; Z79.82 Long term (current) use of aspirin; Z79.01 Long term (current) use of anticoagulants; Z86.16 Personal history of COVID-19
CPT/HCPCS: 36415; 71045; 80048; 80053; 82947; 83735; 83880; 84100; 85025; 85610; 93005; 96374; 96375; 97162-GP; 97165-GO; 97530-GP; 99285-25; A9270-GY; J0696; J1815-GY; J1940; U0002

== ENCOUNTER 2022-04-25 19:58 | Inpatient (IN) | payer MEDICARE ==
[2022-04-25] MEDS ORDERED: Sodium Chloride 0.9% 10 ML Syringe FLUSH PRN (20:05)
[2022-04-25 21:18] LABS: TROPONIN I HIGH SENSITIVITY 1064.1 pg/ml (<=60.4)
[2022-04-25] MEDS ORDERED: Iopamidol 612 MG/ML 100 ML Bottle IV PRN (21:26)
[2022-04-25] MEDS ORDERED: Sodium Chloride 0.9% 50 ML SDV FLUSH SCH (21:30)
[2022-04-25] MEDS ORDERED: Albuterol/Ipratropium 3.0-0.5 MG/3 ML Neb Soln NEB ONE (22:44)
[2022-04-25] MEDS ORDERED: Morphine 4 MG/ML VIAL IVPUSH ONE (23:46)
[2022-04-26] MEDS ORDERED: Lidocaine 5% 700 MG Patch TRDERM SCH (00:45)
[2022-04-26] MEDS: Morphine 4 MG/ML VIAL IVPUSH PRN ×2 (08:32→13:38)
[2022-04-26] MEDS ORDERED: FLUTICASONE INH SCH (09:15)
[2022-04-26] MEDS ORDERED: SALMETEROL INH SCH (09:15)
[2022-04-26] MEDS ORDERED: fentaNYL 12 MCG/HR Transdermal Patch TRDERM SCH (09:15)
[2022-04-26] MEDS ORDERED: Acetaminophen 325 MG Tab PO PRN (09:15)
[2022-04-26] MEDS ORDERED: DIS INH SCH (09:15)
[2022-04-26] MEDS ORDERED: [UNRECOGNIZED DRUG - OTHER] INH SCH (09:15)
[2022-04-26] MEDS ORDERED: INSULIN DETEMIR 100 UNIT/ML SUBCUT SCH (09:30)
[2022-04-26 10:24] LABS: TROPONIN I HIGH SENSITIVITY 1022.4 pg/ml (<=60.4)
[2022-04-26] MEDS: levETIRAcetam 500 MG Tab PO SCH ×2 (10:24→19:31)
[2022-04-26] MEDS ORDERED: Bumetanide 1 MG/4 ML MDV IVPUSH ONE (10:58)
[2022-04-26] MEDS ORDERED: Bumetanide 1 MG/4 ML MDV ONE (14:11)
[2022-04-26] MEDS ORDERED: Albuterol 0.083% 2.5 MG/3 ML Neb Soln NEB PRN (16:56)
[2022-04-26] MEDS: Furosemide 80 MG Tab PO SCH (17:03)
[2022-04-26] MEDS ORDERED: Famotidine 20 MG Tab PO PRN (17:04)
[2022-04-26] MEDS ORDERED: Warfarin 5 MG Tab PO SCH (18:00)
[2022-04-26] MEDS: Formoterol/Mometasone 200-5 MCG 8.8 GM Inhaler IH SCH (19:31)
[2022-04-26] MEDS: DULoxetine 20 MG Cap PO SCH (19:31)
[2022-04-26] MEDS: Insulin Glargine,Human Rec. Analog 100 Units/ML 3 ML Pen SUBCUT SCH (19:32)
[2022-04-26] MEDS ORDERED: Gabapentin 600 MG Tab PO SCH (20:00)
[2022-04-27] MEDS ORDERED: METHIMAZOLE 10 MG PO SCH (08:00)
[2022-04-27] MEDS ORDERED: Omeprazole 20 MG Cap.CR PO SCH (08:00)
[2022-04-27] MEDS ORDERED: Aspirin 81 MG Tab.Chew PO SCH (08:00)
[2022-04-27] MEDS ORDERED: Ezetimibe 10 MG Tab PO SCH (08:00)
[2022-04-27] MEDS: Furosemide 80 MG Tab PO SCH (08:27)
[2022-04-27] MEDS: Formoterol/Mometasone 200-5 MCG 8.8 GM Inhaler IH SCH (08:27)
[2022-04-27] MEDS: DULoxetine 20 MG Cap PO SCH (08:27)
[2022-04-27] MEDS: levETIRAcetam 500 MG Tab PO SCH (08:27)
[2022-04-27] MEDS: Insulin Glargine,Human Rec. Analog 100 Units/ML 3 ML Pen SUBCUT SCH (08:35)
[2022-04-27 12:58] VITALS: BP 101/66; PULSE 82
[2022-05-01] MEDS ORDERED: Warfarin 2.5 MG Tab PO SCH (18:00)
== END 2022-04-27 14:23 | disposition home or self-care (01) | DRG 188 ==
LOC: LB.ED 19:58 → LB.MS 23:45
PROVIDERS: ADMIT Surgery; ATTEND Surgery
DX: J90 Pleural effusion, not elsewhere classified (principal); R07.9 Chest pain, unspecified; I50.9 Heart failure, unspecified; R77.8 Other specified abnormalities of plasma proteins; H91.90 Unspecified hearing loss, unspecified ear; Z20.822 Contact with and (suspected) exposure to COVID-19; I11.0 Hypertensive heart disease with heart failure; J44.9 Chronic obstructive pulmonary disease, unspecified; I10 Essential (primary) hypertension; M19.90 Unspecified osteoarthritis, unspecified site; F32.A Depression, unspecified; E11.9 Type 2 diabetes mellitus without complications; E05.90 Thyrotoxicosis, unspecified without thyrotoxic crisis or storm; Z96.612 Presence of left artificial shoulder joint; J45.909 Unspecified asthma, uncomplicated; I25.10 Atherosclerotic heart disease of native coronary artery without angina pectoris; I25.9 Chronic ischemic heart disease, unspecified; K21.9 Gastro-esophageal reflux disease without esophagitis; Z79.02 Long term (current) use of antithrombotics/antiplatelets; Z79.01 Long term (current) use of anticoagulants; Z79.82 Long term (current) use of aspirin; Z79.4 Long term (current) use of insulin; I25.2 Old myocardial infarction; Z86.73 Personal history of transient ischemic attack (TIA), and cerebral infarction without residual deficits; Z86.16 Personal history of COVID-19; Z86.19 Personal history of other infectious and parasitic diseases; Z79.899 Other long term (current) drug therapy; Z95.1 Presence of aortocoronary bypass graft; Z95.5 Presence of coronary angioplasty implant and graft; Z87.891 Personal history of nicotine dependence
CPT/HCPCS: 36415; 71045; 71260; 80048; 83735; 83880; 84100; 84484; 85027; 85379; 85610; 93005; 99285; Q9967; U0002; 81001; 82947; 93010; 96374; 99221; 99239; A9270-GY; J2270; J3490; J7620

== ENCOUNTER 2022-04-30 17:09 | Emergency (ER) | payer MEDICARE ==
[2022-04-30] MEDS: HYDROmorphone 2 MG/ML SDV IM ONE (17:41)
[2022-04-30] MEDS: HYDROmorphone 2 MG/ML Syringe ONE (17:50)
[2022-04-30 18:09] VITALS: BP 103/63; PULSE 92
== END 2022-04-30 18:27 | disposition home or self-care (01) ==
LOC: LB.ED 17:09
DX: R07.89 Other chest pain (principal); I11.0 Hypertensive heart disease with heart failure; I50.9 Heart failure, unspecified; E11.9 Type 2 diabetes mellitus without complications; E05.90 Thyrotoxicosis, unspecified without thyrotoxic crisis or storm; I25.2 Old myocardial infarction; Z79.4 Long term (current) use of insulin; Z79.01 Long term (current) use of anticoagulants; Z79.899 Other long term (current) drug therapy; Z86.16 Personal history of COVID-19; Z87.891 Personal history of nicotine dependence
CPT/HCPCS: 36415; 71045; 80053; 83880; 85025; 96372; 99285; J1170

== ENCOUNTER 2022-05-08 14:40 | Observation (INO) | payer MEDICARE ==
[2022-05-08] MEDS ORDERED: Sodium Chloride 0.9% 10 ML Syringe FLUSH PRN (15:37)
[2022-05-08] MEDS ORDERED: Furosemide 40 MG/4 ML VIAL IVPUSH ONE (15:47)
[2022-05-08] MEDS ORDERED: Furosemide 40 MG Tab ONE (18:31)
[2022-05-08] MEDS: Furosemide 40 MG Tab PO SCH (18:32)
[2022-05-08] MEDS ORDERED: 50% Dextrose in Water 50 ML Syringe IVPUSH PRN (18:58)
[2022-05-08] MEDS ORDERED: Glucagon,Human Recombinant 1 MG Vial IM PRN (18:58)
[2022-05-08] MEDS ORDERED: Warfarin 5 MG Tab PO ONE (20:06)
[2022-05-08] MEDS: levETIRAcetam 500 MG Tab PO SCH (20:27)
[2022-05-08] MEDS: Gabapentin 600 MG Tab PO SCH (20:27)
[2022-05-09] MEDS: levETIRAcetam 500 MG Tab PO SCH ×2 (07:35→20:30)
[2022-05-09] MEDS: Furosemide 40 MG Tab PO SCH ×2 (07:35→15:41)
[2022-05-09] MEDS: Insulin Aspart 100 Units/ML 3 ML Pen SUBCUT SCH ×3 (07:41→18:00)
[2022-05-09] MEDS: RANOLAZINE 1000 MG PO SCH ×2 (10:01→20:31)
[2022-05-09] MEDS: METHIMAZOLE 10MG TABLET PO SCH (10:01)
[2022-05-09] MEDS: DULOXETINE 20 MG PO SCH ×2 (10:01→20:30)
[2022-05-09] MEDS ORDERED: Furosemide 40 MG/4 ML VIAL IVPUSH ONE (13:01)
[2022-05-09] MEDS: Gabapentin 600 MG Tab PO SCH (20:30)
[2022-05-10 08:32] VITALS: BP 132/71; PULSE 77
[2022-05-10] MEDS: levETIRAcetam 500 MG Tab PO SCH (09:14)
[2022-05-10] MEDS: DULOXETINE 20 MG PO SCH (09:15)
[2022-05-10] MEDS: METHIMAZOLE 10MG TABLET PO SCH (09:15)
[2022-05-10] MEDS: Furosemide 40 MG Tab PO SCH (09:15)
[2022-05-10] MEDS: Insulin Aspart 100 Units/ML 3 ML Pen SUBCUT SCH (09:15)
[2022-05-10] MEDS: RANOLAZINE 1000 MG PO SCH (09:15)
== END 2022-05-10 11:40 | disposition home or self-care (01) ==
LOC: LB.ED 14:40 → LB.MS 16:20
PROVIDERS: ADMIT Surgery; ATTEND Surgery
DX: I11.0 Hypertensive heart disease with heart failure (principal); I50.9 Heart failure, unspecified; J90 Pleural effusion, not elsewhere classified; J45.909 Unspecified asthma, uncomplicated; K21.9 Gastro-esophageal reflux disease without esophagitis; M19.90 Unspecified osteoarthritis, unspecified site; E11.9 Type 2 diabetes mellitus without complications; E03.9 Hypothyroidism, unspecified; F32.A Depression, unspecified; Z79.899 Other long term (current) drug therapy; Z79.01 Long term (current) use of anticoagulants; Z79.4 Long term (current) use of insulin; Z95.5 Presence of coronary angioplasty implant and graft; Z87.891 Personal history of nicotine dependence; Z86.16 Personal history of COVID-19; Z95.1 Presence of aortocoronary bypass graft; Z20.822 Contact with and (suspected) exposure to COVID-19
CPT/HCPCS: 36415; 71045; 80053; 82947; 83735; 83880; 84100; 85025; 85027; 85610; 93005; 93010; 96374; 96376; 99222; 99238; 99285-25; A9270-GY; G0378; J1940; J3490; U0002

== ENCOUNTER 2022-05-22 19:27 | Emergency (ER) | payer MEDICARE ==
[2022-05-22 21:02] LABS: ESTIMATED GFR 73 mL/min (>60)
[2022-05-22 21:32] LABS: TROPONIN I HIGH SENSITIVITY 380.5 pg/ml (<=60.4)
[2022-05-22] MEDS: Sodium Chloride 0.9% 10 ML Syringe FLUSH PRN (21:58)
[2022-05-22] MEDS ORDERED: Potassium Chloride Riders 10 MEQ in Premix Bag 1 BAG IV ONE (22:12)
[2022-05-22] MEDS ORDERED: Albuterol 0.083% 2.5 MG/3 ML Neb Soln NEB ONE (22:12)
[2022-05-22] MEDS ORDERED: Furosemide 40 MG/4 ML VIAL IVPUSH ONE (22:12)
[2022-05-22] MEDS ORDERED: Albuterol 0.083% 2.5 MG/3 ML Neb Soln ONE (22:32)
[2022-05-22] MEDS ORDERED: Potassium Chloride Riders 50 ML ONE (22:44)
[2022-05-22] MEDS ORDERED: Albuterol/Ipratropium 3.0-0.5 MG/3 ML Neb Soln ONE (23:35)
[2022-05-22] MEDS: Albuterol/Ipratropium 3.0-0.5 MG/3 ML Neb Soln NEB SCH (23:35)
[2022-05-22] MEDS ORDERED: Glucagon,Human Recombinant 1 MG Vial IM PRN (23:44)
[2022-05-22] MEDS ORDERED: 50% Dextrose in Water 50 ML Syringe IVPUSH PRN (23:44)
[2022-05-22] MEDS ORDERED: Warfarin 5 MG Tab PO SCH (23:45)
[2022-05-22] MEDS ORDERED: Gabapentin 600 MG Tab PO STA (23:46)
[2022-05-23] MEDS: Potassium Chloride 20 MEQ Tab.ER PO SCH ×3 (00:59→19:44)
[2022-05-23] MEDS ORDERED: Warfarin 2.5 MG Tab ONE (01:30)
[2022-05-23] MEDS ORDERED: Warfarin 2.5 MG Tab PO ONE (01:30)
[2022-05-23] MEDS: Albuterol/Ipratropium 3.0-0.5 MG/3 ML Neb Soln NEB SCH ×4 (07:34→22:46)
[2022-05-23] MEDS: Sodium Chloride 0.9% 10 ML Syringe FLUSH PRN (07:49)
[2022-05-23] MEDS ORDERED: ADVAIR INH SCH (08:00)
[2022-05-23] MEDS ORDERED: INSULIN DETEMIR 100 UNIT/ML SUBCUT SCH (08:00)
[2022-05-23] MEDS: Insulin Glargine,Human Rec. Analog 100 Units/ML 3 ML Pen SUBCUT SCH (09:54)
[2022-05-23 09:57] LABS: ESTIMATED GFR 69 mL/min (>60)
[2022-05-23] MEDS: Insulin Aspart 100 Units/ML 3 ML Pen SUBCUT SCH ×5 (09:57→18:47)
[2022-05-23] MEDS: Insulin Lispro 100 Unit/ML 3 ML KwikPen SUBCUT SCH ×3 (10:11→18:47)
[2022-05-23] MEDS: levETIRAcetam 500 MG Tab PO SCH ×2 (10:13→19:44)
[2022-05-23] MEDS: Clopidogrel 75 MG Tab PO SCH (10:16)
[2022-05-23] MEDS: Furosemide 40 MG Tab PO SCH ×2 (10:16→19:44)
[2022-05-23] MEDS: Ezetimibe 10 MG Tab PO SCH (10:17)
[2022-05-23] MEDS ORDERED: Furosemide 40 MG Tab ONE (10:17)
[2022-05-23] MEDS: DULoxetine 20 MG Cap PO SCH ×2 (10:20→19:44)
[2022-05-23] MEDS: Ferrous Sulfate 325 MG Tab PO SCH ×2 (10:20→18:01)
[2022-05-23] MEDS: Magnesium Oxide 400 MG Tab PO SCH (10:20)
[2022-05-23] MEDS: ADVAIR INH SCH ×2 (10:21→19:44)
[2022-05-23] MEDS ORDERED: Insulin Aspart 100 Units/ML 3 ML Pen SUBCUT PRN (12:00)
[2022-05-23] MEDS: Gabapentin 600 MG Tab PO SCH (19:44)
[2022-05-23] MEDS: Warfarin 5 MG Tab PO SCH (21:32)
[2022-05-24] MEDS ORDERED: Acetaminophen 325 MG Tab ONE (00:14)
[2022-05-24] MEDS: Acetaminophen 325 MG Tab PO PRN ×2 (00:20→14:35)
[2022-05-24] MEDS: Albuterol/Ipratropium 3.0-0.5 MG/3 ML Neb Soln NEB SCH ×4 (06:11→22:48)
[2022-05-24] MEDS: Ferrous Sulfate 325 MG Tab PO SCH ×2 (07:52→18:03)
[2022-05-24] MEDS: DULoxetine 20 MG Cap PO SCH ×2 (07:52→19:26)
[2022-05-24] MEDS: Potassium Chloride 20 MEQ Tab.ER PO SCH ×2 (07:53→19:30)
[2022-05-24] MEDS: levETIRAcetam 500 MG Tab PO SCH ×2 (07:53→19:27)
[2022-05-24] MEDS: Furosemide 40 MG Tab PO SCH ×2 (07:54→19:30)
[2022-05-24] MEDS: Insulin Glargine,Human Rec. Analog 100 Units/ML 3 ML Pen SUBCUT SCH (07:54)
[2022-05-24] MEDS: Insulin Aspart 100 Units/ML 3 ML Pen SUBCUT SCH ×6 (07:55→18:00)
[2022-05-24] MEDS: Magnesium Oxide 400 MG Tab PO SCH (07:55)
[2022-05-24] MEDS: ADVAIR INH SCH ×2 (07:55→19:31)
[2022-05-24] MEDS: Clopidogrel 75 MG Tab PO SCH (07:56)
[2022-05-24] MEDS: Ezetimibe 10 MG Tab PO SCH (07:57)
[2022-05-24] MEDS ORDERED: REPATHA 140 MG/ML SUBCUT ONE (14:45)
[2022-05-24] MEDS: Warfarin 5 MG Tab PO SCH (18:03)
[2022-05-24] MEDS: Gabapentin 600 MG Tab PO SCH (19:31)
[2022-05-25] MEDS: Albuterol/Ipratropium 3.0-0.5 MG/3 ML Neb Soln NEB SCH (06:07)
[2022-05-25] MEDS: Ferrous Sulfate 325 MG Tab PO SCH (07:44)
[2022-05-25] MEDS: DULoxetine 20 MG Cap PO SCH (07:44)
[2022-05-25] MEDS: Potassium Chloride 20 MEQ Tab.ER PO SCH (07:44)
[2022-05-25] MEDS: levETIRAcetam 500 MG Tab PO SCH (07:44)
[2022-05-25] MEDS: Insulin Glargine,Human Rec. Analog 100 Units/ML 3 ML Pen SUBCUT SCH (07:45)
[2022-05-25] MEDS: Magnesium Oxide 400 MG Tab PO SCH (07:46)
[2022-05-25] MEDS: Insulin Aspart 100 Units/ML 3 ML Pen SUBCUT SCH ×2 (07:47)
[2022-05-25] MEDS: Clopidogrel 75 MG Tab PO SCH (07:47)
[2022-05-25] MEDS: ADVAIR INH SCH (07:47)
[2022-05-25] MEDS: Ezetimibe 10 MG Tab PO SCH (07:48)
[2022-05-25] MEDS ORDERED: Furosemide 40 MG Tab PO SCH (08:00)
[2022-05-25 08:45] VITALS: BP 114/67; PULSE 85
[2022-05-29] MEDS ORDERED: Warfarin 2.5 MG Tab PO SCH (18:00)
== END 2022-05-25 11:45 | disposition home or self-care (01) ==
LOC: LB.ED 19:27 → LB.MS 23:55 → LB.ED 23:55
PROVIDERS: ADMIT Surgery; ATTEND Surgery
DX: J45.21 Mild intermittent asthma with (acute) exacerbation (principal); J90 Pleural effusion, not elsewhere classified; R09.02 Hypoxemia; I25.2 Old myocardial infarction; K21.9 Gastro-esophageal reflux disease without esophagitis; I11.0 Hypertensive heart disease with heart failure; I50.9 Heart failure, unspecified; E11.9 Type 2 diabetes mellitus without complications; E05.90 Thyrotoxicosis, unspecified without thyrotoxic crisis or storm; M19.90 Unspecified osteoarthritis, unspecified site; Z79.4 Long term (current) use of insulin; Z79.01 Long term (current) use of anticoagulants; Z79.02 Long term (current) use of antithrombotics/antiplatelets; Z79.899 Other long term (current) drug therapy; Z20.822 Contact with and (suspected) exposure to COVID-19; Z86.73 Personal history of transient ischemic attack (TIA), and cerebral infarction without residual deficits; Z86.16 Personal history of COVID-19
CPT/HCPCS: 36415; 71045; 71250; 80048; 82947; 83880; 84484; 85027; 85610; 93005; 93010; 96365; 96375; 99222; 99232; 99238; 99285-25; A9270-GY; G0378; J1815-GY; J1940; J3480; J3490; J7620; U0002

== ENCOUNTER 2022-05-28 19:38 | Inpatient (IN) | payer MEDICARE ==
[2022-05-28] MEDS ORDERED: Sodium Chloride 0.9% 10 ML Syringe FLUSH PRN (20:39)
[2022-05-28 22:00] LABS: CORONAVIRUS COVID-19 NAA NEGATIVE (NEGATIVE)
[2022-05-28] MEDS ORDERED: Furosemide 40 MG/4 ML VIAL IVPUSH ONE (22:31)
[2022-05-28] MEDS ORDERED: Furosemide 40 MG/4 ML VIAL ONE (23:20)
[2022-05-28] MEDS ORDERED: Acetaminophen 325 MG Tab PO PRN (23:42)
[2022-05-28] MEDS ORDERED: Glucagon,Human Recombinant 1 MG Vial IM PRN (23:42)
[2022-05-28] MEDS ORDERED: 50% Dextrose in Water 50 ML Syringe IVPUSH PRN (23:42)
[2022-05-29] MEDS: Albuterol/Ipratropium 3.0-0.5 MG/3 ML Neb Soln NEB SCH ×5 (00:43→19:29)
[2022-05-29] MEDS ORDERED: Insulin Lispro 100 Unit/ML 3 ML KwikPen SUBCUT SCH (08:00)
[2022-05-29] MEDS ORDERED: INSULIN DETEMIR 100 UNIT/ML SUBCUT SCH (08:00)
[2022-05-29] MEDS ORDERED: 50% Dextrose in Water 50 ML Syringe IVPUSH PRN (08:42)
[2022-05-29] MEDS ORDERED: Glucagon,Human Recombinant 1 MG Vial IM PRN (08:42)
[2022-05-29] MEDS: Insulin Lispro 100 Unit/ML 3 ML KwikPen SUBCUT SCH ×3 (09:40→18:19)
[2022-05-29] MEDS: Tamsulosin 0.4 MG Cap.ER PO SCH (09:41)
[2022-05-29] MEDS: Potassium Chloride 20 MEQ Tab.ER PO SCH ×2 (09:42→19:30)
[2022-05-29] MEDS: Furosemide 40 MG Tab PO SCH ×2 (09:42→19:30)
[2022-05-29] MEDS: levETIRAcetam 500 MG Tab PO SCH ×2 (09:42→19:30)
[2022-05-29] MEDS: Ezetimibe 10 MG Tab PO SCH (09:43)
[2022-05-29] MEDS: METHIMAZOLE 10 MG PO SCH (09:44)
[2022-05-29] MEDS: Clopidogrel 75 MG Tab PO SCH (09:44)
[2022-05-29] MEDS: Insulin Glargine,Human Rec. Analog 100 Units/ML 3 ML Pen SUBCUT SCH (09:45)
[2022-05-29] MEDS: Amoxicillin/Clavulanate K 875-125 MG Tab PO SCH ×2 (09:48→19:30)
[2022-05-29] MEDS ORDERED: Amoxicillin/Clavulanate K 875-125 MG Tab ONE (19:25)
[2022-05-29] MEDS ORDERED: Gabapentin 600 MG Tab PO SCH (20:00)
[2022-05-30] MEDS: Furosemide 40 MG Tab PO SCH (07:53)
[2022-05-30] MEDS: Ezetimibe 10 MG Tab PO SCH (07:53)
[2022-05-30] MEDS: Clopidogrel 75 MG Tab PO SCH (07:53)
[2022-05-30] MEDS: Amoxicillin/Clavulanate K 875-125 MG Tab PO SCH (07:53)
[2022-05-30] MEDS: Albuterol/Ipratropium 3.0-0.5 MG/3 ML Neb Soln NEB SCH ×3 (07:54→17:04)
[2022-05-30] MEDS: Tamsulosin 0.4 MG Cap.ER PO SCH (07:54)
[2022-05-30] MEDS: Potassium Chloride 20 MEQ Tab.ER PO SCH (07:54)
[2022-05-30] MEDS: levETIRAcetam 500 MG Tab PO SCH (07:54)
[2022-05-30] MEDS: Insulin Glargine,Human Rec. Analog 100 Units/ML 3 ML Pen SUBCUT SCH (07:55)
[2022-05-30] MEDS: METHIMAZOLE 10 MG PO SCH (07:56)
[2022-05-30] MEDS: Insulin Lispro 100 Unit/ML 3 ML KwikPen SUBCUT SCH ×3 (07:56→17:04)
[2022-05-30 16:24] VITALS: BP 115/62; PULSE 83
== END 2022-05-30 17:32 | DRG 291 ==
LOC: LB.ED 19:38 → LB.MS 23:50
PROVIDERS: ADMIT Surgery; ATTEND Surgery
DX: J90 Pleural effusion, not elsewhere classified (principal); I11.0 Hypertensive heart disease with heart failure; I50.33 Acute on chronic diastolic (congestive) heart failure; J45.901 Unspecified asthma with (acute) exacerbation; J45.909 Unspecified asthma, uncomplicated; I25.2 Old myocardial infarction; Z20.822 Contact with and (suspected) exposure to COVID-19; I25.10 Atherosclerotic heart disease of native coronary artery without angina pectoris; K21.9 Gastro-esophageal reflux disease without esophagitis; Z96.612 Presence of left artificial shoulder joint; Z95.1 Presence of aortocoronary bypass graft; M19.90 Unspecified osteoarthritis, unspecified site; F32.A Depression, unspecified; E11.9 Type 2 diabetes mellitus without complications; Z86.73 Personal history of transient ischemic attack (TIA), and cerebral infarction without residual deficits; Z79.51 Long term (current) use of inhaled steroids; Z79.01 Long term (current) use of anticoagulants; Z95.5 Presence of coronary angioplasty implant and graft; Z87.891 Personal history of nicotine dependence; Z79.4 Long term (current) use of insulin; Z79.899 Other long term (current) drug therapy
CPT/HCPCS: 0240U; 36415; 71045; 71250; 80053; 81003; 82947; 83880; 84484; 85027; 85610; 93005; 99222; 99239; 93010; 96374; 99285-25; A9270-GY; J1815; J1815-GY; J1940; J7620

== ENCOUNTER 2022-07-10 10:50 | Observation (INO) | payer MEDICARE ==
[2022-07-10] MEDS ORDERED: Sodium Chloride 0.9% 1,000 ML IV ONE (11:00)
[2022-07-10] MEDS: 50% Dextrose in Water 50 ML Syringe IVPUSH ONE ×2 (11:16→12:07)
[2022-07-10] MEDS ORDERED: 50% Dextrose in Water 50 ML Syringe ONE (12:14)
[2022-07-10] MEDS ORDERED: Dextrose 5%-0.45% NaCl 1,000 ML IV SCH (12:15)
[2022-07-10] MEDS ORDERED: Acetaminophen 325 MG Tab PO PRN (14:19)
[2022-07-10] MEDS ORDERED: Nitroglycerin 0.4 MG Tab.SL SL SCH (14:30)
[2022-07-10] MEDS ORDERED: Warfarin 5 MG Tab PO SCH (14:30)
[2022-07-10] MEDS ORDERED: Warfarin 2.5 MG Tab PO SCH (18:00)
[2022-07-10] MEDS ORDERED: Gabapentin 600 MG Tab PO SCH (20:00)
[2022-07-10] MEDS: Furosemide 40 MG Tab PO SCH (20:12)
[2022-07-10] MEDS: levETIRAcetam 500 MG Tab PO SCH (20:12)
[2022-07-10] MEDS: Ferrous Sulfate 325 MG Tab PO SCH (20:12)
[2022-07-10] MEDS: DULoxetine 20 MG Cap PO SCH (20:12)
[2022-07-10] MEDS: RANOLAZINE 1000 MG PO SCH (20:13)
[2022-07-10] MEDS ORDERED: Potassium Chloride 20 MEQ Tab.ER ONE (20:17)
[2022-07-10] MEDS: FLUTICASONE INH SCH (20:19)
[2022-07-10] MEDS: Non-Formulary Medication 1 Each (Potassium Chloride [Potassium Chloride] 20 MEQ Tablet.Er) PO SCH (20:19)
[2022-07-10] MEDS: [UNRECOGNIZED DRUG - OTHER] INH SCH (20:19)
[2022-07-10] MEDS: DIS INH SCH (20:19)
[2022-07-10] MEDS: SALMETEROL INH SCH (20:19)
[2022-07-11 07:44] VITALS: BP 113/63; PULSE 66
[2022-07-11] MEDS ORDERED: Clopidogrel 75 MG Tab PO SCH (08:00)
[2022-07-11] MEDS ORDERED: Insulin Aspart 100 Units/ML 3 ML Pen SUBCUT SCH (08:00)
[2022-07-11] MEDS ORDERED: Ezetimibe 10 MG Tab PO SCH (08:00)
[2022-07-11] MEDS ORDERED: METHIMAZOLE 10 MG PO SCH (08:00)
[2022-07-11] MEDS ORDERED: Cyanocobalamin (Vitamin B12) 1,000 MCG Tab PO SCH (08:00)
[2022-07-11] MEDS ORDERED: Tamsulosin 0.4 MG Cap.ER PO SCH (08:00)
[2022-07-11] MEDS ORDERED: Omeprazole 20 MG Cap.CR PO SCH (08:00)
[2022-07-11] MEDS ORDERED: Non-Formulary Medication 1 Each (Cholecalciferol (Vitamin D3) [Vitamin D3] 50 MCG Tablet) PO SCH (08:00)
[2022-07-11] MEDS ORDERED: Magnesium Oxide 400 MG Tab PO SCH (08:00)
[2022-07-11] MEDS ORDERED: Metoprolol Succinate 25 MG Tab.ER PO SCH (08:00)
[2022-07-11] MEDS ORDERED: Potassium Chloride 20 MEQ Tab.ER ONE (08:06)
[2022-07-11] MEDS: Furosemide 40 MG Tab PO SCH (08:08)
[2022-07-11] MEDS: levETIRAcetam 500 MG Tab PO SCH (08:08)
[2022-07-11] MEDS: Ferrous Sulfate 325 MG Tab PO SCH (08:09)
[2022-07-11] MEDS: Non-Formulary Medication 1 Each (Potassium Chloride [Potassium Chloride] 20 MEQ Tablet.Er) PO SCH (08:09)
[2022-07-11] MEDS: SALMETEROL INH SCH (08:10)
[2022-07-11] MEDS: FLUTICASONE INH SCH (08:10)
[2022-07-11] MEDS: [UNRECOGNIZED DRUG - OTHER] INH SCH (08:10)
[2022-07-11] MEDS: DIS INH SCH (08:10)
[2022-07-11] MEDS: DULoxetine 20 MG Cap PO SCH (08:10)
[2022-07-11] MEDS: RANOLAZINE 1000 MG PO SCH (08:11)
[2022-07-11] MEDS ORDERED: Insulin NPH/Insulin Regular,Human 70-30 100 Units/ML 10 ML Vial SUBCUT STA (09:51)
[2022-07-11] MEDS ORDERED: Insulin NPH/Insulin Regular,Human 70-30 100 Units/ML 10 ML Vial SUBCUT SCH (20:00)
== END 2022-07-11 10:10 | disposition home or self-care (01) ==
LOC: LB.ED 10:50 → LB.MS 14:00
PROVIDERS: ADMIT Physician Assistant; ATTEND Physician Assistant
DX: E11.649 Type 2 diabetes mellitus with hypoglycemia without coma (principal); I95.9 Hypotension, unspecified; J45.909 Unspecified asthma, uncomplicated; K21.9 Gastro-esophageal reflux disease without esophagitis; F32.A Depression, unspecified; E05.90 Thyrotoxicosis, unspecified without thyrotoxic crisis or storm; I11.0 Hypertensive heart disease with heart failure; I50.9 Heart failure, unspecified; I25.2 Old myocardial infarction; Z95.818 Presence of other cardiac implants and grafts; Z87.891 Personal history of nicotine dependence; Z79.4 Long term (current) use of insulin; Z79.899 Other long term (current) drug therapy
CPT/HCPCS: 36415; 71045; 80048; 80053; 81001; 82947; 83605; 85025; 85610; 93005; 93010; 96361; 96374; 96376; 99222; 99239; 99285; A9270; G0378; J1815; J7030; J7042

== ENCOUNTER 2022-09-04 13:37 | Emergency (ER) | payer MEDICARE ==
[2022-09-04] MEDS ORDERED: Aspirin 81 MG Tab.Chew PO ONE (13:52)
[2022-09-04 14:01] LABS: BASOPHILS ABSOLUTE AUTO 0.02 K/uL (0.02-0.10); BASOPHILS PERCENT AUTO 0.4 % (0.0-0.5); EOSINOPHILS ABSOLUTE AUTO 0.12 K/uL (0.04-0.40); EOSINOPHILS PERCENT AUTO 2.1 % (1.0-5.0); HEMATOCRIT 38.5 % (40.0-54.0); HEMOGLOBIN 12.5 g/dL (13.0-18.0); LYMPHOCYTES ABSOLUTE AUTO 1.29 K/uL (1.50-4.00); MEAN CORPUSCULAR HEMOGLOBIN 25.6 pg (27.0-32.0); MEAN CORPUSCULAR HGB CONC 32.5 g/dL (31.0-35.0); MEAN CORPUSCULAR VOLUME 79 fL (76-96); MEAN PLATELET VOLUME 8.4 fL (6.0-10.0); MONOCYTES ABSOLUTE AUTO 0.57 K/uL (0.20-0.80); MONOCYTES PERCENT AUTO 10.1 % (3.0-10.0); NEUTROPHILS ABSOLUTE AUTO 3.62 K/uL (2.00-7.50); NEUTROPHILS PERCENT AUTO 64.4 % (45.0-70.0); PLATELET COUNT,PLT 143 K/uL (150-400); RED BLOOD CELL COUNT 4.88 M/uL (4.50-6.50); RED CELL DISTRIBUTION WIDTH 17.6 % (11.0-16.0); WHITE BLOOD CELL COUNT,WBC 5.6 K/uL (4.0-11.0)
[2022-09-04 14:18] LABS: INR 1.7 (1.0-3.5)
[2022-09-04 14:19] LABS: PROTHROMBIN TIME 16.7 sec (9.0-11.5)
[2022-09-04 14:21] VITALS: BP 98/59; PULSE 72
[2022-09-04 14:25] LABS: A/G RATIO 0.9 (0.8-2.0); ALBUMIN 3.4 g/dL (3.4-5.0); ANION GAP 10.6 mmol/L (5.0-15.0); BILIRUBIN TOTAL 0.3 mg/dL (0.0-1.0); BUN/CREATININE RATIO 21.8 (6-25); CALCIUM 8.9 mg/dL (8.5-10.1); CARBON DIOXIDE,CO2 31.5 mmol/L (21.0-32.0); CREATININE 1.42 mg/dL (0.70-1.30); EST CRCL DRUG DOSING (CG) 42.11 mL/min; POTASSIUM,K 4.1 mmol/L (3.5-5.1); PROTEIN TOTAL,TP 7.4 g/dL (6.4-8.2)
[2022-09-04 14:26] LABS: TROPONIN I HIGH SENSITIVITY 1031.6 pg/ml (<=60.4)
== END 2022-09-04 16:25 | disposition home or self-care (01) ==
LOC: LB.ED 13:37
DX: R07.89 Other chest pain (principal); I11.0 Hypertensive heart disease with heart failure; I50.9 Heart failure, unspecified; I25.2 Old myocardial infarction; E11.9 Type 2 diabetes mellitus without complications; E05.90 Thyrotoxicosis, unspecified without thyrotoxic crisis or storm; K21.9 Gastro-esophageal reflux disease without esophagitis; J45.909 Unspecified asthma, uncomplicated; Z95.1 Presence of aortocoronary bypass graft; Z79.01 Long term (current) use of anticoagulants; Z79.4 Long term (current) use of insulin; Z79.899 Other long term (current) drug therapy; Z86.16 Personal history of COVID-19
CPT/HCPCS: 36415; 71046; 80053; 83880; 84484; 85025; 85610; 93005; 99285; A9270

== ENCOUNTER 2022-11-07 04:30 | Emergency (ER) | payer MEDICARE ==
[2022-11-07] MEDS: Ketorolac 30 MG/ML SDV IM ONE (04:48)
[2022-11-07] MEDS ORDERED: traMADol 50 MG Tab ONE (06:00)
[2022-11-07 06:46] VITALS: BP 125/60; PULSE 69
== END 2022-11-07 06:25 | disposition home or self-care (01) ==
LOC: LB.ED 04:30
DX: M25.562 Pain in left knee (principal); I11.0 Hypertensive heart disease with heart failure; I50.9 Heart failure, unspecified; I25.2 Old myocardial infarction; J45.909 Unspecified asthma, uncomplicated; E11.9 Type 2 diabetes mellitus without complications; F17.200 Nicotine dependence, unspecified, uncomplicated; Z79.899 Other long term (current) drug therapy; Z79.01 Long term (current) use of anticoagulants
CPT/HCPCS: 73560; 96372; 99283; A9270; J1885; A0425; A0429

== ENCOUNTER 2023-04-10 23:57 | Emergency (ER) | payer MEDICARE ==
[2023-04-11] MEDS ORDERED: Acetaminophen 500 MG Tab PO ONE ×2 (00:26→07:12)
[2023-04-11] MEDS: Sodium Chloride 0.9% 10 ML Syringe FLUSH PRN ×2 (00:55→01:50)
[2023-04-11] MEDS ORDERED: cefTRIAXone 1 GM Vial IVPUSH SCH (01:00)
[2023-04-11 01:25] LABS: BASOPHILS ABSOLUTE AUTO 0.02 K/uL (0.02-0.10); BASOPHILS PERCENT AUTO 0.3 % (0.0-0.5); EOSINOPHILS ABSOLUTE AUTO 0.07 K/uL (0.04-0.40); EOSINOPHILS PERCENT AUTO 1.1 % (1.0-5.0); HEMATOCRIT 39.8 % (40.0-54.0); HEMOGLOBIN 12.6 g/dL (13.0-18.0); LYMPHOCYTES ABSOLUTE AUTO 1.44 K/uL (1.50-4.00); LYMPHOCYTES PERCENT AUTO 22.1 % (20.0-40.0); MEAN CORPUSCULAR HEMOGLOBIN 25.8 pg (27.0-32.0); MEAN CORPUSCULAR HGB CONC 31.7 g/dL (31.0-35.0); MEAN CORPUSCULAR VOLUME 81 fL (76-96); MEAN PLATELET VOLUME 9.4 fL (6.0-10.0); MONOCYTES ABSOLUTE AUTO 0.75 K/uL (0.20-0.80); MONOCYTES PERCENT AUTO 11.5 % (3.0-10.0); NEUTROPHILS ABSOLUTE AUTO 4.23 K/uL (2.00-7.50); PLATELET COUNT,PLT 138 K/uL (150-400); RED BLOOD CELL COUNT 4.89 M/uL (4.50-6.50); RED CELL DISTRIBUTION WIDTH 17.7 % (11.0-16.0); WHITE BLOOD CELL COUNT,WBC 6.5 K/uL (4.0-11.0)
[2023-04-11] MEDS ORDERED: cefTRIAXone 1 GM Vial ONE (01:32)
[2023-04-11 01:48] LABS: A/G RATIO 0.8 (0.8-2.0); ANION GAP 10.3 mmol/L (5.0-15.0); BILIRUBIN TOTAL 0.8 mg/dL (0.0-1.0); BUN/CREATININE RATIO 13.2 (6-25); CALCIUM 8.8 mg/dL (8.5-10.1); CREATININE 1.51 mg/dL (0.70-1.30); EST CRCL DRUG DOSING (CG) 41.95 mL/min; POTASSIUM,K 4.3 mmol/L (3.5-5.1); PROTEIN TOTAL,TP 6.7 g/dL (6.4-8.2)
[2023-04-11 01:52] LABS: APPEARANCE,URINE CLOUDY (CLEAR); BILIRUBIN,URINE NEGATIVE (NEGATIVE); COLOR,URINE YELLOW; GLUCOSE,URINE 500 mg/dL (NEGATIVE); KETONES,URINE NEGATIVE (NEGATIVE); LEUKOCYTE ESTERASE,URINE NEGATIVE (NEGATIVE); NITRITE,URINE NEGATIVE (NEGATIVE); OCCULT BLOOD,URINE NEGATIVE (NEGATIVE); PH,URINE 6.5 (5.0-8.0); PROTEIN,URINE NEGATIVE (NEGATIVE)
[2023-04-11 09:01] VITALS: BP 105/59; PULSE 73
== END 2023-04-11 07:26 ==
LOC: LB.ED 23:57
DX: N50.812 Left testicular pain (principal); I10 Essential (primary) hypertension; E78.00 Pure hypercholesterolemia, unspecified; E11.9 Type 2 diabetes mellitus without complications; J45.909 Unspecified asthma, uncomplicated; K21.9 Gastro-esophageal reflux disease without esophagitis; Z86.16 Personal history of COVID-19; Z95.5 Presence of coronary angioplasty implant and graft; E66.9 Obesity, unspecified; Z68.36 Body mass index [BMI] 36.0-36.9, adult; Z79.01 Long term (current) use of anticoagulants; Z79.84 Long term (current) use of oral hypoglycemic drugs; Z79.4 Long term (current) use of insulin; Z79.899 Other long term (current) drug therapy
CPT/HCPCS: 36415; 80053; 81003; 85025; 87040; 96374; 99285; 99285-25; A9270-GY; J0696; J3490

== ENCOUNTER 2023-05-08 15:14 | Emergency (ER) | payer MEDICARE ==
[2023-05-08] MEDS ORDERED: HYDROmorphone 2 MG/ML Syringe IVPUSH ONE (16:08)
[2023-05-08] MEDS ORDERED: Naloxone 2 MG/2 ML Syringe IVPUSH PRN (16:08)
[2023-05-08] MEDS ORDERED: Sodium Chloride 0.9% 1,000 ML IV ONE (16:09)
[2023-05-08] MEDS ORDERED: HYDROmorphone 2 MG/ML Syringe ONE (16:16)
[2023-05-08 16:25] LABS: BASOPHILS ABSOLUTE AUTO 0.02 K/uL (0.02-0.10); BASOPHILS PERCENT AUTO 0.3 % (0.0-0.5); EOSINOPHILS ABSOLUTE AUTO 0.03 K/uL (0.04-0.40); EOSINOPHILS PERCENT AUTO 0.4 % (1.0-5.0); HEMATOCRIT 36.3 % (40.0-54.0); HEMOGLOBIN 13.1 g/dL (13.0-18.0); LYMPHOCYTES ABSOLUTE AUTO 1.06 K/uL (1.50-4.00); LYMPHOCYTES PERCENT AUTO 15.5 % (20.0-40.0); MEAN CORPUSCULAR HEMOGLOBIN 25.9 pg (27.0-32.0); MEAN CORPUSCULAR HGB CONC 36.1 g/dL (31.0-35.0); MEAN CORPUSCULAR VOLUME 72 fL (76-96); MEAN PLATELET VOLUME 8.4 fL (6.0-10.0); MONOCYTES ABSOLUTE AUTO 0.94 K/uL (0.20-0.80); MONOCYTES PERCENT AUTO 13.8 % (3.0-10.0); NEUTROPHILS ABSOLUTE AUTO 4.78 K/uL (2.00-7.50); PLATELET COUNT,PLT 121 K/uL (150-400); RED BLOOD CELL COUNT 5.06 M/uL (4.50-6.50); RED CELL DISTRIBUTION WIDTH 17.4 % (11.0-16.0); WHITE BLOOD CELL COUNT,WBC 6.8 K/uL (4.0-11.0)
[2023-05-08 16:47] LABS: INFLUENZA A NAA NEGATIVE (NEGATIVE); INFLUENZA B NAA NEGATIVE (NEGATIVE); RESPIRATORY SYNCYTIAL VIR NAA NEGATIVE (NEGATIVE)
[2023-05-08 16:47] LABS: A/G RATIO 0.8 (0.8-2.0); ALBUMIN 3.1 g/dL (3.4-5.0); ANION GAP 15.7 mmol/L (5.0-15.0); BILIRUBIN TOTAL 1.2 mg/dL (0.0-1.0); BUN/CREATININE RATIO 11.3 (6-25); CALCIUM 9.1 mg/dL (8.5-10.1); CARBON DIOXIDE,CO2 25.8 mmol/L (21.0-32.0); CREATININE 1.5 mg/dL (0.70-1.30); EST CRCL DRUG DOSING (CG) 42.23 mL/min; POTASSIUM,K 4.5 mmol/L (3.5-5.1); PROTEIN TOTAL,TP 6.9 g/dL (6.4-8.2)
[2023-05-08 16:49] LABS: CORONAVIRUS COVID-19 NAA NEGATIVE (NEGATIVE)
[2023-05-08 17:22] LABS: APPEARANCE,URINE CLEAR (CLEAR); BILIRUBIN,URINE SMALL (NEGATIVE); COLOR,URINE YELLOW; GLUCOSE,URINE 500 mg/dL (NEGATIVE); KETONES,URINE 15 mg/dL (NEGATIVE); LEUKOCYTE ESTERASE,URINE NEGATIVE (NEGATIVE); NITRITE,URINE NEGATIVE (NEGATIVE); OCCULT BLOOD,URINE NEGATIVE (NEGATIVE); PH,URINE 5.5 (5.0-8.0); PROTEIN,URINE NEGATIVE (NEGATIVE); UROBILINOGEN,URINE 0.2 E.U./dL (0.2-1.0)
[2023-05-08 17:24] LABS: RBC,URINE NOT SEEN /HPF; WBC,URINE 0-5 /HPF
[2023-05-08] MEDS ORDERED: Sodium Phosphate,Monobasic/Sodium Phosphate,Dibasic Enema 133 ML Bottle RECTAL ONE ×3 (17:24→18:40)
[2023-05-08 19:11] VITALS: BP 103/45
[2023-05-08 19:51] VITALS: PULSE 80
== END 2023-05-08 19:50 | disposition home or self-care (01) ==
LOC: LB.ED 15:14
DX: K59.00 Constipation, unspecified (principal); I11.0 Hypertensive heart disease with heart failure; I50.9 Heart failure, unspecified; I25.810 Atherosclerosis of coronary artery bypass graft(s) without angina pectoris; I25.2 Old myocardial infarction; J45.909 Unspecified asthma, uncomplicated; K21.9 Gastro-esophageal reflux disease without esophagitis; E11.9 Type 2 diabetes mellitus without complications; E66.9 Obesity, unspecified; Z95.5 Presence of coronary angioplasty implant and graft; Z86.16 Personal history of COVID-19; Z87.891 Personal history of nicotine dependence; Z79.899 Other long term (current) drug therapy; Z79.01 Long term (current) use of anticoagulants; Z68.32 Body mass index [BMI] 32.0-32.9, adult
CPT/HCPCS: 0241U; 36415; 74176; 80053; 81001; 82947; 83690; 85025; 96361; 96374; 99284; 99285-25; A9270-GY; C1758; J1170; J7030

== ENCOUNTER 2023-05-09 12:51 | Emergency (ER) | payer MEDICARE ==
[2023-05-09 13:34] LABS: BASOPHILS ABSOLUTE AUTO 0.01 K/uL (0.02-0.10); BASOPHILS PERCENT AUTO 0.2 % (0.0-0.5); EOSINOPHILS ABSOLUTE AUTO 0.04 K/uL (0.04-0.40); EOSINOPHILS PERCENT AUTO 0.8 % (1.0-5.0); HEMATOCRIT 35.5 % (40.0-54.0); HEMOGLOBIN 12.6 g/dL (13.0-18.0); LYMPHOCYTES ABSOLUTE AUTO 1.12 K/uL (1.50-4.00); LYMPHOCYTES PERCENT AUTO 23.5 % (20.0-40.0); MEAN CORPUSCULAR HEMOGLOBIN 25.7 pg (27.0-32.0); MEAN CORPUSCULAR HGB CONC 35.5 g/dL (31.0-35.0); MEAN CORPUSCULAR VOLUME 72 fL (76-96); MEAN PLATELET VOLUME 8.9 fL (6.0-10.0); MONOCYTES ABSOLUTE AUTO 0.77 K/uL (0.20-0.80); MONOCYTES PERCENT AUTO 16.2 % (3.0-10.0); NEUTROPHILS ABSOLUTE AUTO 2.82 K/uL (2.00-7.50); NEUTROPHILS PERCENT AUTO 59.3 % (45.0-70.0); PLATELET COUNT,PLT 110 K/uL (150-400); RED BLOOD CELL COUNT 4.91 M/uL (4.50-6.50); RED CELL DISTRIBUTION WIDTH 17.2 % (11.0-16.0); WHITE BLOOD CELL COUNT,WBC 4.8 K/uL (4.0-11.0)
[2023-05-09 13:45] LABS: ANION GAP 11.5 mmol/L (5.0-15.0); BUN/CREATININE RATIO 18.8 (6-25); CARBON DIOXIDE,CO2 25.8 mmol/L (21.0-32.0); CREATININE 0.96 mg/dL (0.70-1.30); EST CRCL DRUG DOSING (CG) 65.99 mL/min; POTASSIUM,K 4.3 mmol/L (3.5-5.1)
[2023-05-09 13:50] VITALS: BP 125/51; PULSE 75
[2023-05-09 13:50] LABS: APPEARANCE,URINE SLIGHTLY CLOUDY (CLEAR); BILIRUBIN,URINE NEGATIVE (NEGATIVE); COLOR,URINE YELLOW; GLUCOSE,URINE 500 mg/dL (NEGATIVE); KETONES,URINE NEGATIVE (NEGATIVE); LEUKOCYTE ESTERASE,URINE NEGATIVE (NEGATIVE); NITRITE,URINE NEGATIVE (NEGATIVE); OCCULT BLOOD,URINE NEGATIVE (NEGATIVE); PROTEIN,URINE NEGATIVE (NEGATIVE); UROBILINOGEN,URINE 0.2 E.U./dL (0.2-1.0)
[2023-05-09] MEDS ORDERED: Ibuprofen 600 MG Tab PO ONE (13:51)
[2023-05-09] MEDS ORDERED: Ibuprofen 600 MG Tab ONE (13:52)
[2023-05-09 13:56] LABS: RBC,URINE NOT SEEN /HPF; WBC,URINE NOT SEEN /HPF
[2023-05-09 13:57] LABS: MUCUS,URINE OCCASIONAL /HPF
[2023-05-09 16:04] LABS: A/G RATIO 0.8 (0.8-2.0); CALCIUM 8.8 mg/dL (8.5-10.1); PROTEIN TOTAL,TP 6.8 g/dL (6.4-8.2)
[2023-05-09 16:35] LABS: BILIRUBIN TOTAL 0.7 mg/dL (0.0-1.0)
== END 2023-05-09 14:07 | disposition home or self-care (01) ==
LOC: LB.ED 12:51
DX: R10.9 Unspecified abdominal pain (principal); I11.0 Hypertensive heart disease with heart failure; I50.9 Heart failure, unspecified; E78.00 Pure hypercholesterolemia, unspecified; I25.2 Old myocardial infarction; I25.810 Atherosclerosis of coronary artery bypass graft(s) without angina pectoris; E11.9 Type 2 diabetes mellitus without complications; E66.9 Obesity, unspecified; Z79.01 Long term (current) use of anticoagulants; Z79.899 Other long term (current) drug therapy; Z79.4 Long term (current) use of insulin; Z68.32 Body mass index [BMI] 32.0-32.9, adult; Z86.16 Personal history of COVID-19
CPT/HCPCS: 36415; 74019; 80053; 81001; 82947; 83690; 85025; 99284; A9270-GY

== ENCOUNTER 2023-05-25 20:00 | Emergency (ER) | payer MEDICARE ==
[2023-05-25 20:46] LABS: BASOPHILS ABSOLUTE AUTO 0.02 K/uL (0.02-0.10); BASOPHILS PERCENT AUTO 0.3 % (0.0-0.5); EOSINOPHILS ABSOLUTE AUTO 0.07 K/uL (0.04-0.40); EOSINOPHILS PERCENT AUTO 1.2 % (1.0-5.0); HEMOGLOBIN 12.2 g/dL (13.0-18.0); LYMPHOCYTES ABSOLUTE AUTO 1.34 K/uL (1.50-4.00); LYMPHOCYTES PERCENT AUTO 22.9 % (20.0-40.0); MEAN CORPUSCULAR HEMOGLOBIN 25.7 pg (27.0-32.0); MEAN CORPUSCULAR HGB CONC 27.7 g/dL (31.0-35.0); MEAN CORPUSCULAR VOLUME 93 fL (76-96); MEAN PLATELET VOLUME 9.2 fL (6.0-10.0); MONOCYTES ABSOLUTE AUTO 0.45 K/uL (0.20-0.80); MONOCYTES PERCENT AUTO 7.7 % (3.0-10.0); NEUTROPHILS ABSOLUTE AUTO 3.98 K/uL (2.00-7.50); NEUTROPHILS PERCENT AUTO 67.9 % (45.0-70.0); PLATELET COUNT,PLT 187 K/uL (150-400); RED BLOOD CELL COUNT 4.74 M/uL (4.50-6.50); WHITE BLOOD CELL COUNT,WBC 5.9 K/uL (4.0-11.0)
[2023-05-25 21:15] LABS: A/G RATIO 0.9 (0.8-2.0); ALBUMIN 3.3 g/dL (3.4-5.0); ANION GAP 11.2 mmol/L (5.0-15.0); BILIRUBIN TOTAL 0.4 mg/dL (0.0-1.0); BUN/CREATININE RATIO 18.5 (6-25); CALCIUM 9.1 mg/dL (8.5-10.1); CARBON DIOXIDE,CO2 29.2 mmol/L (21.0-32.0); CREATININE 1.19 mg/dL (0.70-1.30); EST CRCL DRUG DOSING (CG) 53.23 mL/min; POTASSIUM,K 4.4 mmol/L (3.5-5.1)
[2023-05-25 21:16] LABS: TROPONIN I HIGH SENSITIVITY 1314.1 pg/ml (<=60.4)
[2023-05-25 21:59] LABS: INFLUENZA A NAA NEGATIVE (NEGATIVE); INFLUENZA B NAA NEGATIVE (NEGATIVE); RESPIRATORY SYNCYTIAL VIR NAA NEGATIVE (NEGATIVE)
[2023-05-25 22:01] LABS: CORONAVIRUS COVID-19 NAA NEGATIVE (NEGATIVE)
[2023-05-25] MEDS: Furosemide 40 MG/4 ML VIAL IVPUSH ONE (23:42)
[2023-05-25] MEDS: Heparin Sodium/D5W 25,000 UNITS/500 ML BAG IV SCH (23:53)
[2023-05-26] MEDS: Furosemide 40 MG/4 ML VIAL ONE (00:03)
[2023-05-26 02:24] VITALS: BP 129/73; PULSE 89
== END 2023-05-26 02:05 ==
LOC: LB.ED 20:00
DX: I21.4 Non-ST elevation (NSTEMI) myocardial infarction (principal); I11.0 Hypertensive heart disease with heart failure; I50.9 Heart failure, unspecified; I25.810 Atherosclerosis of coronary artery bypass graft(s) without angina pectoris; E78.00 Pure hypercholesterolemia, unspecified; I25.2 Old myocardial infarction; J45.909 Unspecified asthma, uncomplicated; E11.9 Type 2 diabetes mellitus without complications; Z87.891 Personal history of nicotine dependence; Z86.16 Personal history of COVID-19; Z95.5 Presence of coronary angioplasty implant and graft; Z90.49 Acquired absence of other specified parts of digestive tract; Z79.899 Other long term (current) drug therapy; Z79.4 Long term (current) use of insulin; Z79.01 Long term (current) use of anticoagulants
CPT/HCPCS: 0241U; 36415; 51702; 71046; 80053; 83880; 84484; 85025; 93005; 96365; 96366; 96375; 99285; J1644; J1940

== ENCOUNTER 2023-06-05 14:22 | Emergency (ER) | payer MEDICARE ==
[2023-06-05 15:22] LABS: BASOPHILS ABSOLUTE AUTO 0.02 K/uL (0.02-0.10); BASOPHILS PERCENT AUTO 0.4 % (0.0-0.5); EOSINOPHILS ABSOLUTE AUTO 0.12 K/uL (0.04-0.40); EOSINOPHILS PERCENT AUTO 2.3 % (1.0-5.0); HEMATOCRIT 34.1 % (40.0-54.0); HEMOGLOBIN 10.9 g/dL (13.0-18.0); LYMPHOCYTES ABSOLUTE AUTO 1.14 K/uL (1.50-4.00); LYMPHOCYTES PERCENT AUTO 21.8 % (20.0-40.0); MEAN CORPUSCULAR HEMOGLOBIN 25.9 pg (27.0-32.0); MEAN CORPUSCULAR VOLUME 81 fL (76-96); MEAN PLATELET VOLUME 8.6 fL (6.0-10.0); MONOCYTES ABSOLUTE AUTO 0.47 K/uL (0.20-0.80); NEUTROPHILS ABSOLUTE AUTO 3.49 K/uL (2.00-7.50); NEUTROPHILS PERCENT AUTO 66.5 % (45.0-70.0); PLATELET COUNT,PLT 133 K/uL (150-400); RED BLOOD CELL COUNT 4.21 M/uL (4.50-6.50); RED CELL DISTRIBUTION WIDTH 17.5 % (11.0-16.0); WHITE BLOOD CELL COUNT,WBC 5.2 K/uL (4.0-11.0)
[2023-06-05 15:46] LABS: INR 2.5 (1.0-3.5)
[2023-06-05 15:49] LABS: A/G RATIO 0.9 (0.8-2.0); ANION GAP 12.3 mmol/L (5.0-15.0); BILIRUBIN TOTAL 0.7 mg/dL (0.0-1.0); BUN/CREATININE RATIO 17.1 (6-25); CALCIUM 8.7 mg/dL (8.5-10.1); CREATININE 1.29 mg/dL (0.70-1.30); EST CRCL DRUG DOSING (CG) 49.11 mL/min; POTASSIUM,K 4.3 mmol/L (3.5-5.1); PROTEIN TOTAL,TP 6.5 g/dL (6.4-8.2)
[2023-06-05 15:52] LABS: PROTHROMBIN TIME 24.8 sec (9.0-11.5)
[2023-06-05] MEDS ORDERED: Heparin Sodium/D5W 25,000 UNITS/500 ML BAG IV SCH (17:15)
[2023-06-05] MEDS: Aspirin 81 MG Tab.Chew PO ONE (17:55)
[2023-06-05] MEDS: Heparin Sodium 5,000 Units/ML Vial IVPUSH ONE (17:56)
[2023-06-05 18:23] VITALS: BP 95/54; PULSE 79
== END 2023-06-05 19:00 ==
LOC: LB.ED 14:22
DX: I21.4 Non-ST elevation (NSTEMI) myocardial infarction (principal); I25.10 Atherosclerotic heart disease of native coronary artery without angina pectoris; E78.00 Pure hypercholesterolemia, unspecified; I10 Essential (primary) hypertension; I25.2 Old myocardial infarction; K21.9 Gastro-esophageal reflux disease without esophagitis; E11.9 Type 2 diabetes mellitus without complications; E66.9 Obesity, unspecified; Z79.899 Other long term (current) drug therapy; Z86.73 Personal history of transient ischemic attack (TIA), and cerebral infarction without residual deficits; Z86.19 Personal history of other infectious and parasitic diseases; Z86.16 Personal history of COVID-19; Z68.34 Body mass index [BMI] 34.0-34.9, adult; Z95.1 Presence of aortocoronary bypass graft; Z95.5 Presence of coronary angioplasty implant and graft; Z79.4 Long term (current) use of insulin; Z79.01 Long term (current) use of anticoagulants
CPT/HCPCS: 36415; 71045; 73060-LT; 80053; 84484; 85025; 85610; 85730; 93005; 99285; A0425; A0429

== ENCOUNTER 2023-07-04 14:05 | Inpatient (IN) | payer MEDICAID, MEDICARE ==
[2023-07-04 14:47] LABS: BASOPHILS ABSOLUTE AUTO 0.04 K/uL (0.02-0.10); BASOPHILS PERCENT AUTO 0.7 % (0.0-0.5); EOSINOPHILS ABSOLUTE AUTO 0.22 K/uL (0.04-0.40); EOSINOPHILS PERCENT AUTO 3.9 % (1.0-5.0); HEMATOCRIT 31.2 % (40.0-54.0); HEMOGLOBIN 9.6 g/dL (13.0-18.0); LYMPHOCYTES ABSOLUTE AUTO 1.12 K/uL (1.50-4.00); LYMPHOCYTES PERCENT AUTO 19.7 % (20.0-40.0); MEAN CORPUSCULAR HEMOGLOBIN 27.6 pg (27.0-32.0); MEAN CORPUSCULAR HGB CONC 30.8 g/dL (31.0-35.0); MEAN CORPUSCULAR VOLUME 90 fL (76-96); MEAN PLATELET VOLUME 9.6 fL (6.0-10.0); MONOCYTES ABSOLUTE AUTO 0.57 K/uL (0.20-0.80); NEUTROPHILS ABSOLUTE AUTO 3.74 K/uL (2.00-7.50); NEUTROPHILS PERCENT AUTO 65.7 % (45.0-70.0); PLATELET COUNT,PLT 156 K/uL (150-400); RED BLOOD CELL COUNT 3.48 M/uL (4.50-6.50); RED CELL DISTRIBUTION WIDTH 21.6 % (11.0-16.0); WHITE BLOOD CELL COUNT,WBC 5.7 K/uL (4.0-11.0)
[2023-07-04 15:00] LABS: INR 3.9 (1.0-3.5); PROTHROMBIN TIME 37.9 sec (9.0-11.5)
[2023-07-04 15:06] LABS: A/G RATIO 0.9 (0.8-2.0); ALBUMIN 3.1 g/dL (3.4-5.0); ANION GAP 13.7 mmol/L (5.0-15.0); BILIRUBIN TOTAL 0.8 mg/dL (0.0-1.0); BUN/CREATININE RATIO 19.2 (6-25); CALCIUM 8.5 mg/dL (8.5-10.1); CARBON DIOXIDE,CO2 27.3 mmol/L (21.0-32.0); CREATININE 2.19 mg/dL (0.70-1.30); EST CRCL DRUG DOSING (CG) 28.93 mL/min; MAGNESIUM 2.6 mg/dL (1.8-2.4); PHOSPHORUS 4.6 mg/dL (2.5-4.9); PROTEIN TOTAL,TP 6.4 g/dL (6.4-8.2)
[2023-07-04 15:08] LABS: TROPONIN I HIGH SENSITIVITY 1418.8 pg/ml (<=60.4)
[2023-07-04] MEDS: Sodium Chloride 0.9% 10 ML Syringe FLUSH PRN (16:58)
[2023-07-04] MEDS: Morphine 4 MG/ML VIAL IVPUSH ONE (16:58)
[2023-07-04] MEDS: Morphine 4 MG/ML VIAL ONE (17:37)
[2023-07-04] MEDS ORDERED: Warfarin 2.5 MG Tab PO SCH (18:15)
[2023-07-04] MEDS ORDERED: Warfarin 5 MG Tab PO SCH (18:15)
[2023-07-04] MEDS: Formoterol/Mometasone 200-5 MCG 8.8 GM Inhaler IH SCH (19:46)
[2023-07-04] MEDS: Potassium Chloride 20 MEQ Tab.ER PO SCH (19:47)
[2023-07-04] MEDS: Ferrous Sulfate 325 MG Tab PO SCH (19:47)
[2023-07-04] MEDS: DULoxetine 20 MG Cap PO SCH (19:47)
[2023-07-04] MEDS: Lidocaine 5% 700 MG Patch TRDERM PRN (19:48)
[2023-07-04] MEDS: Gabapentin 600 MG Tab PO SCH (19:48)
[2023-07-04] MEDS: levETIRAcetam 500 MG Tab PO SCH (19:48)
[2023-07-04] MEDS ORDERED: DIS INH SCH (20:00)
[2023-07-04] MEDS ORDERED: FLUTICASONE INH SCH (20:00)
[2023-07-04] MEDS ORDERED: [UNRECOGNIZED DRUG - OTHER] INH SCH (20:00)
[2023-07-04] MEDS ORDERED: SALMETEROL INH SCH (20:00)
[2023-07-04] MEDS: Acetaminophen/HYDROcodone 325-5 MG Tab PO PRN (22:50)
[2023-07-05] MEDS: Acetaminophen/HYDROcodone 325-5 MG Tab ONE (00:01)
[2023-07-05] MEDS: Cholecalciferol (Vitamin D3) 2,000 Unit Cap PO SCH (07:11)
[2023-07-05] MEDS: Tamsulosin 0.4 MG Cap.ER PO SCH (07:12)
[2023-07-05] MEDS: Ezetimibe 10 MG Tab PO SCH (07:12)
[2023-07-05] MEDS: Aspirin 81 MG Tab.Chew PO SCH (07:12)
[2023-07-05] MEDS: Clopidogrel 75 MG Tab PO SCH (07:13)
[2023-07-05] MEDS: Empagliflozin 25 MG Tab PO SCH (07:13)
[2023-07-05] MEDS: Omeprazole 20 MG Cap.CR PO SCH (07:13)
[2023-07-05] MEDS: Torsemide 20 MG Tab PO SCH (07:14)
[2023-07-05] MEDS: Insulin Glargine,Human Rec. Analog 100 Units/ML 3 ML Pen SUBCUT SCH (07:30)
[2023-07-05] MEDS ORDERED: Non-Formulary Medication 1 Each (Dapagliflozin Propanediol [Farxiga] 10 MG Tablet) PO SCH (08:00)
[2023-07-05] MEDS ORDERED: METHIMAZOLE 10 MG PO SCH (08:00)
[2023-07-05] MEDS ORDERED: INSULIN DETEMIR 100 UNIT/ML SUBCUT SCH (08:00)
[2023-07-05] MEDS: Furosemide 20 MG Tab PO SCH (10:27)
[2023-07-05] MEDS: Acetaminophen 325 MG Tab PO PRN (12:24)
[2023-07-06 08:13] LABS: INR 3.1 (1.0-3.5)
[2023-07-06 08:18] LABS: PROTHROMBIN TIME 30.9 sec (9.0-11.5)
[2023-07-06 08:21] LABS: ANION GAP 8.3 mmol/L (5.0-15.0); CALCIUM 8.5 mg/dL (8.5-10.1); CARBON DIOXIDE,CO2 33.1 mmol/L (21.0-32.0); CREATININE 1.78 mg/dL (0.70-1.30); EST CRCL DRUG DOSING (CG) 35.59 mL/min; POTASSIUM,K 3.4 mmol/L (3.5-5.1)
[2023-07-07 09:06] LABS: BASOPHILS ABSOLUTE AUTO 0.02 K/uL (0.02-0.10); BASOPHILS PERCENT AUTO 0.4 % (0.0-0.5); EOSINOPHILS ABSOLUTE AUTO 0.33 K/uL (0.04-0.40); EOSINOPHILS PERCENT AUTO 6.7 % (1.0-5.0); HEMATOCRIT 34.8 % (40.0-54.0); HEMOGLOBIN 10.5 g/dL (13.0-18.0); LYMPHOCYTES ABSOLUTE AUTO 1.12 K/uL (1.50-4.00); LYMPHOCYTES PERCENT AUTO 22.9 % (20.0-40.0); MEAN CORPUSCULAR HEMOGLOBIN 27.3 pg (27.0-32.0); MEAN CORPUSCULAR HGB CONC 30.2 g/dL (31.0-35.0); MEAN CORPUSCULAR VOLUME 91 fL (76-96); MEAN PLATELET VOLUME 9.5 fL (6.0-10.0); MONOCYTES ABSOLUTE AUTO 0.54 K/uL (0.20-0.80); NEUTROPHILS ABSOLUTE AUTO 2.88 K/uL (2.00-7.50); PLATELET COUNT,PLT 170 K/uL (150-400); RED BLOOD CELL COUNT 3.84 M/uL (4.50-6.50); RED CELL DISTRIBUTION WIDTH 21.2 % (11.0-16.0); WHITE BLOOD CELL COUNT,WBC 4.9 K/uL (4.0-11.0)
[2023-07-07 09:13] LABS: A/G RATIO 0.9 (0.8-2.0); ALBUMIN 2.9 g/dL (3.4-5.0); ANION GAP 8.7 mmol/L (5.0-15.0); BILIRUBIN TOTAL 0.9 mg/dL (0.0-1.0); BUN/CREATININE RATIO 14.9 (6-25); CALCIUM 8.5 mg/dL (8.5-10.1); CARBON DIOXIDE,CO2 32.5 mmol/L (21.0-32.0); CREATININE 1.54 mg/dL (0.70-1.30); EST CRCL DRUG DOSING (CG) 41.13 mL/min; POTASSIUM,K 3.2 mmol/L (3.5-5.1); PROTEIN TOTAL,TP 6.3 g/dL (6.4-8.2)
[2023-07-07 11:54] LABS: INR 2.5 (1.0-3.5)
[2023-07-07 12:02] LABS: PROTHROMBIN TIME 25.2 sec (9.0-11.5)
[2023-07-07] MEDS: Warfarin 2 MG Tab PO SCH (17:44)
[2023-07-07] MEDS: Potassium Chloride 20 MEQ Tab.ER PO SCH (20:17)
[2023-07-10 08:46] LABS: PROTHROMBIN TIME 19.9 sec (9.0-11.5)
[2023-07-10 12:38] VITALS: PULSE 81
[2023-07-10 13:32] VITALS: BP 99/57
== END 2023-07-10 13:13 | disposition home or self-care (01) | DRG 914 ==
LOC: LB.ED 14:05 → LB.MS 15:50 → UNDOADMIN 15:50 → LB.MS 17:15 → UNDODISIN 07-10 13:13
PROVIDERS: ADMIT Surgery; ATTEND Physician Assistant
DX: S89.91XA Unspecified injury of right lower leg, initial encounter (principal); N17.9 Acute kidney failure, unspecified; M17.0 Bilateral primary osteoarthritis of knee; I50.9 Heart failure, unspecified; I11.0 Hypertensive heart disease with heart failure; E78.00 Pure hypercholesterolemia, unspecified; J45.909 Unspecified asthma, uncomplicated; K21.9 Gastro-esophageal reflux disease without esophagitis; M19.90 Unspecified osteoarthritis, unspecified site; F32.A Depression, unspecified; E11.9 Type 2 diabetes mellitus without complications; E66.9 Obesity, unspecified; N18.9 Chronic kidney disease, unspecified; R79.89 Other specified abnormal findings of blood chemistry; R42 Dizziness and giddiness; I25.10 Atherosclerotic heart disease of native coronary artery without angina pectoris; G47.33 Obstructive sleep apnea (adult) (pediatric); R09.02 Hypoxemia; Z88.8 Allergy status to other drugs, medicaments and biological substances; Z79.82 Long term (current) use of aspirin; Z79.01 Long term (current) use of anticoagulants; Z79.02 Long term (current) use of antithrombotics/antiplatelets; Z79.899 Other long term (current) drug therapy; Z79.4 Long term (current) use of insulin; Z95.1 Presence of aortocoronary bypass graft; I25.2 Old myocardial infarction; Z95.5 Presence of coronary angioplasty implant and graft; Z86.73 Personal history of transient ischemic attack (TIA), and cerebral infarction without residual deficits; Z68.35 Body mass index [BMI] 35.0-35.9, adult; Z86.16 Personal history of COVID-19; W19.XXXA Unspecified fall, initial encounter
CPT/HCPCS: 36415; 70450; 71045; 73560-RT; 80048; 80053; 82947; 83735; 83880; 84100; 84484; 85025; 85610; 93005; 93010; 96374; 97110-GP; 97161-GP; 97165-GO; 97530-GO; 97530-GP; 99222; 99231; 99232; 99238; 99285-25; A9270-GY; J1815-GY; J2270; J3490

== ENCOUNTER 2023-07-15 15:24 | Emergency (ER) | payer MEDICARE ==
[2023-07-15 16:05] LABS: BASOPHILS ABSOLUTE AUTO 0.04 K/uL (0.02-0.10); BASOPHILS PERCENT AUTO 0.8 % (0.0-0.5); EOSINOPHILS ABSOLUTE AUTO 0.26 K/uL (0.04-0.40); EOSINOPHILS PERCENT AUTO 4.9 % (1.0-5.0); HEMATOCRIT 33.9 % (40.0-54.0); HEMOGLOBIN 10.4 g/dL (13.0-18.0); LYMPHOCYTES ABSOLUTE AUTO 1.44 K/uL (1.50-4.00); LYMPHOCYTES PERCENT AUTO 27.4 % (20.0-40.0); MEAN CORPUSCULAR HEMOGLOBIN 27.4 pg (27.0-32.0); MEAN CORPUSCULAR HGB CONC 30.7 g/dL (31.0-35.0); MEAN CORPUSCULAR VOLUME 89 fL (76-96); MEAN PLATELET VOLUME 9.7 fL (6.0-10.0); MONOCYTES PERCENT AUTO 9.5 % (3.0-10.0); NEUTROPHILS ABSOLUTE AUTO 3.02 K/uL (2.00-7.50); NEUTROPHILS PERCENT AUTO 57.4 % (45.0-70.0); PLATELET COUNT,PLT 160 K/uL (150-400); RED BLOOD CELL COUNT 3.79 M/uL (4.50-6.50); RED CELL DISTRIBUTION WIDTH 19.9 % (11.0-16.0); WHITE BLOOD CELL COUNT,WBC 5.3 K/uL (4.0-11.0)
[2023-07-15 16:32] LABS: ALBUMIN 3.2 g/dL (3.4-5.0); ANION GAP 12.2 mmol/L (5.0-15.0); BILIRUBIN TOTAL 0.7 mg/dL (0.0-1.0); BUN/CREATININE RATIO 18.1 (6-25); CALCIUM 8.4 mg/dL (8.5-10.1); CARBON DIOXIDE,CO2 27.8 mmol/L (21.0-32.0); CREATININE 1.66 mg/dL (0.70-1.30); EST CRCL DRUG DOSING (CG) 38.16 mL/min; PROTEIN TOTAL,TP 6.5 g/dL (6.4-8.2)
[2023-07-15] MEDS: Ketorolac 30 MG/ML SDV IVPUSH ONE (16:33)
[2023-07-15] MEDS: Sodium Chloride 0.9% 1,000 ML IV ONE (17:26)
[2023-07-15] MEDS ORDERED: Sodium Chloride 0.9% 10 ML Syringe FLUSH PRN (18:38)
[2023-07-15 18:44] LABS: APPEARANCE,URINE CLEAR (CLEAR); BILIRUBIN,URINE NEGATIVE (NEGATIVE); COLOR,URINE YELLOW; GLUCOSE,URINE >=1000 mg/dL (NEGATIVE); KETONES,URINE NEGATIVE (NEGATIVE); LEUKOCYTE ESTERASE,URINE NEGATIVE (NEGATIVE); NITRITE,URINE NEGATIVE (NEGATIVE); OCCULT BLOOD,URINE NEGATIVE (NEGATIVE); PH,URINE 5.5 (5.0-8.0); PROTEIN,URINE NEGATIVE (NEGATIVE); UROBILINOGEN,URINE 0.2 E.U./dL (0.2-1.0)
[2023-07-15 20:21] LABS: INR 3.3 (1.0-3.5)
[2023-07-15] MEDS: HYDROmorphone 2 MG/ML Syringe IVPUSH ONE (21:07)
[2023-07-15] MEDS: Sodium Chloride 0.9% 1,000 ML IV SCH (21:12)
[2023-07-15] MEDS: HYDROmorphone 2 MG/ML Syringe ONE (21:13)
[2023-07-16 01:03] VITALS: BP 106/58; PULSE 81
== END 2023-07-16 00:10 ==
LOC: LB.ED 15:24
DX: S72.001A Fracture of unspecified part of neck of right femur, initial encounter for closed fracture (principal); R55 Syncope and collapse; J45.909 Unspecified asthma, uncomplicated; E11.9 Type 2 diabetes mellitus without complications; E66.9 Obesity, unspecified; Z68.34 Body mass index [BMI] 34.0-34.9, adult; Z90.49 Acquired absence of other specified parts of digestive tract; W19.XXXA Unspecified fall, initial encounter
CPT/HCPCS: 36415; 70450; 71045; 73030-RT; 73502-RT; 80053; 81003; 82947; 84484; 85025; 85610; 93005; 96361; 96374; 96375; 99285; 99285-25; C1758; J1170; J1885; J7030